=== PATIENT | female | born 1955 | race Caucasian/White ===

== ENCOUNTER 2017-02-04 06:23 | Emergency (ER) | payer MEDICARE, OTHER ==
[~2017-02-04] VITALS: Ht 154.9 cm; Wt 75.0 kg
[~2017-02-04 06:23] MED LIST: CALC600T12 PO; CENTTAB PO; DILA100C PO; DOCU1CAP23 PO; FOSA70TA PO; LEVO75TA3 PO; PHEN-523 PO; VITA100036 PO
[2017-02-04 06:25] VITALS: BP 152/69; PULSE 85; RESP 18; TEMP 97.6; O2SAT 97
[2017-02-04] MEDS ORDERED: CALC600T4 PO (06:33)
[2017-02-04] MEDS ORDERED: PHEN-523 PO (06:33)
[2017-02-04] MEDS ORDERED: MULTTAB67 PO (06:33)
--- NOTE | 2017-02-04 07:11 | PD ---
HPI Chief Complaint: Fall Time Seen by Provider: 06:58 Travel History International Travel<30 days: No Contact w/Intl Traveler<30days: No Traveled to known affect area: No History of Present Illness HPI 61-year-old female complains of low back pain and left buttock pain. Patient fell from standing up to the ground this morning. Patient denies loss of consciousness. Patient denies any headache or neck pain. Patient denies any chest pain or shortness of breath. Patient denies abdominal pain. Patient complains of aching pain to low back area, left buttock area. Patient denies any focal weakness or numbness of extremity. Patient status post back scoliosis surgery in the past. PFSH Past Medical History Cancer: No Cardiovascular Problems: No Diabetes: No Endocrine: Yes Genitourinary: No Hepatitis: No Hiatal Hernia: No Immune Disorder: No Musculoskeletal: No Neurologic: Yes (EPILEPSY) Psychiatric: No Reproductive: No Respiratory: No Migraines: No Seizures: Yes Thyroid Disease: Yes ?: Not Menopausal: Yes Past Surgical History AICD: No Body Medical Devices: JIM RODS IN BACK Endocrine Surgery: No Eye Surgery: Yes (BILATERAL CATARACTS) Joint Replacement: No Pacemaker: No Tympanostomy Tube: Yes Other Surgery: Yes Social History Alcohol Use: No Tobacco Use: No Substance Use: No Allergies-Medications (Allergen,Severity, Reaction): Coded Allergies: Coconut (Verified Allergy, Severe, Anaphylaxis, 02/04/17) Pea (Verified Allergy, Severe, Anaphylaxis, 02/04/17) Achromycin V (Verified Allergy, Unknown, 02/04/17) Reported Meds & Prescriptions Reported Meds & Active Scripts Active Tylenol-Codeine #3 (Acetaminophen-Codeine) 300-30 mg Tab 1 Tab PO Q6HR PRN Reported Phenobarbital 30 Mg Tab 30 Mg PO BID Multiple Vitamin 1 Tab 1 Tab PO DAILY Calcium Carbonate 1,500 Mg Tab 1,500 Mg PO DAILY 1,500 mg calcium carbonate (600 mg elemental calcium) Stool Softener Extra Strength (Docusate Sodium) 250 Mg Cap 250 Mg PO DAILY PRN Vitamin D3 (Cholecalciferol) 1,000 Unit Cap 1,000 Units PO DAILY Fosamax (Alendronate Sodium) 70 Mg Tab 70 Mg PO Q7D Dilantin (Phenytoin Extended) 100 Mg Cap 300 Mg PO DAILY Levothyroxine (Levothyroxine Sodium) 75 Mcg Tab 75 Mcg PO DAILY Review of Systems General / Constitutional: No: Fever Eyes: No: Visual changes HENT: No: Headaches Cardiovascular: No: Chest Pain or Discomfort Respiratory: No: Shortness of Breath Gastrointestinal: No: Abdominal Pain Genitourinary: No: Dysuria Musculoskeletal: No: Pain Skin: No Rash Neurologic: No: Weakness Psychiatric: No: Depression Endocrine: No: Polydipsia Hematologic/Lymphatic: No: Easy Bruising Physical Exam Narrative GENERAL: Well-nourished, well-developed patient. SKIN: Focused skin assessment warm/dry. HEAD: Normocephalic. EYES: No scleral icterus. No injection or drainage. NECK: Supple, trachea midline. No JVD or lymphadenopathy. CARDIOVASCULAR: Regular rate and rhythm without murmurs, gallops, or rubs. RESPIRATORY: Breath sounds equal bilaterally. No accessory muscle use. GASTROINTESTINAL: Abdomen soft, non-tender, nondistended. MUSCULOSKELETAL: No cyanosis, or edema. Mild tenderness on palpation left buttock area. Full range of motion the left hip joint. BACK: Patient has mild tenderness on palpation lower lumbar area, without obvious deformity. No CVA tenderness. Neurologic exam normal. Data Data Last Documented VS Vital Signs Date Time Temp Pulse Resp B/P Pulse Ox O2 Delivery O2 Flow Rate FiO2 02/04/17 06:25 97.6 85 18 152/69 97 Orders Spine, Lumbar - Ltd (Ap & Lat) (02/04/17 07:04) Hip, Uni(Ap&Lat) W Ap Pelvis (02/04/17 07:04) Ketorolac Inj (Toradol Inj) (02/04/17 09:00) MDM Medical Decision Making Medical Screen Exam Complete: Yes Emergency Medical Condition: Yes Differential Diagnosis Differential diagnosis including contusion, fracture, dislocation. Narrative Course 61-year-old female with low back pain and left buttock pain. Status post fall. Diagnosis Primary Impression: Contusion of left hip Qualified Code: S70.02XA - Contusion of left hip, initial encounter Patient Instructions: General Instructions Additional Instructions: Tylenol ibuprofen as needed for pain. Tylenol with codeine as needed for severe pain. Stool softener with codeine. Follow-up with personal physician. Return if worse. Scripts Acetaminophen-Codeine (Tylenol-Codeine #3)300-30 mg Tab1 Tab PO Q6HR PRN ( HEADACHE) #20 TAB Prov:Алексаднр Muro MD 02/04/17 Disposition: 01 DISCHARGE HOME Condition: Stable Александр Muro MD Feb 04, 2017 07:11
--- NOTE | 2017-02-04 08:04 | RADRPT ---
EXAM DATE/TIME: 02/04/2017 07:38 [facility] COMPARISON: No previous studies available for comparison. INDICATIONS : Left hip pain, fall. MEDICAL HISTORY : None. SURGICAL HISTORY : Howard rods in back ENCOUNTER: Initial ACUITY: 1 day PAIN SCORE: 5/10 LOCATION: Left hip FINDINGS: Mild degenerative changes are noted involving the hip joints. There is no acute fracture or dislocat ion of the left hip. Degenerative changes and scoliosis of the visualized portion of the lower lumba r spine are noted. CONCLUSION: 1. No acute fracture or dislocation. 2. Mild degenerative changes involving the hip joints bilaterally. 3. Degenerative changes and scoliosis of the lumbar spine. Jose Singh MD on February 04, 2017 at 7:56 Board Certified Radiologist. This report was verified electronically.
--- NOTE | 2017-02-04 08:06 | RADRPT ---
EXAM DATE/TIME: 02/04/2017 07:42 [facility] COMPARISON: No previous studies available for comparison. INDICATIONS : Lower back pain, fall. MEDICAL HISTORY : None. SURGICAL HISTORY : Howard rods ENCOUNTER: Initial ACUITY: 1 day PAIN SCORE: 10/10 LOCATION: Left lumbar FINDINGS: Degenerative changes and scoliosis of the thoracolumbar spine are noted. Howard rods are noted. There is no acute compression fracture or spondylolisthesis of the lumbar spine. CONCLUSION: 1. Degenerative changes and scoliosis of the thoracolumbar spine. 2. No acute compression fracture or spondylolisthesis. Jose Singh MD on February 04, 2017 at 7:59 Board Certified Radiologist. This report was verified electronically.
[2017-02-04] MEDS ORDERED: TYLETAB34 PO (08:27)
[2017-02-04] MEDS ORDERED: KETOROLAC TROMETHAMINE 30 MG/ML (IVP) VIAL IV PUSH ONE (09:00)
== END 2017-02-04 09:15 | disposition home or self-care (01) ==
LOC: NEPE 06:23
DX: S70.02XA Contusion of left hip, initial encounter (principal); M54.5 Low back pain; E07.9 Disorder of thyroid, unspecified; W18.30XA Fall on same level, unspecified, initial encounter
CPT/HCPCS: 72100; 73502; 96374; 99284; J1885

== ENCOUNTER 2017-02-04 14:18 | Inpatient (IN) | payer MEDICARE, OTHER ==
[~2017-02-04] VITALS: Ht 160 cm; Wt 77.0 kg
[~2017-02-04 14:18] MED LIST changes: +CALC600T4 PO; +MULTTAB67 PO; +TYLETAB34 PO
[2017-02-04 14:24] VITALS: BP 142/60; PULSE 103; RESP 16; TEMP 98.7; O2SAT 94
[2017-02-04] MEDS ORDERED: SODIUM CHLORIDE 0.9% FLUSH 10 ML FLUSH IVF PRN (15:00)
[2017-02-04 15:02] VITALS: O2SAT 96
[2017-02-04 15:05] LABS: AUTOMATED NEUTROPHIL # 9.6 TH/MM3 (1.8-7.7); BASOPHIL % 0.2 % (0.0-2.0); EOSINOPHIL % 0.1 % (0.0-4.0); HEMATOCRIT 36.5 % (35.0-46.0); LYMPH % 5.5 % (9.0-44.0); LYMPHOCYTE # 0.6 TH/MM3 (1.0-4.8); MEAN CELL VOLUME 93.8 FL (80.0-100.0); MEAN CORPUSCULAR HEMOGLOBIN 31.4 PG (27.0-34.0); MEAN CORPUSCULAR HGB CONC 33.5 % (32.0-36.0); MONO % 7.8 % (0.0-8.0); NEUT % 86.4 % (16.0-70.0); PLATELET COUNT 122 TH/MM3 (150-450); RED BLOOD COUNT 3.89 MIL/MM3 (4.00-5.30); WHITE BLOOD COUNT 11.1 TH/MM3 (4.0-11.0)
[2017-02-04 15:07] LABS: HEMO FLAGS DIFF FINAL
[2017-02-04 15:18] LABS: CHLORIDE 101 MEQ/L (98-107); POTASSIUM 4.4 MEQ/L (3.5-5.1); SODIUM (NA) 138 MEQ/L (136-145)
[2017-02-04 15:22] LABS: BLOOD UREA NITROGEN 17 MG/DL (7-18)
[2017-02-04 15:23] LABS: ANION GAP 6 MEQ/L (5-15); APTT (PATIENT) 29.5 SEC (24.3-30.1); BICARBONATE 31.2 MEQ/L (21.0-32.0); INTERNATIONAL NORMALIZED RATIO 1.3 RATIO; PROTHROMBIN TIME - PATIENT 14.3 SEC (9.8-11.6)
--- NOTE | 2017-02-04 15:23 | PD ---
HPI Chief Complaint: General Weakness Time Seen by Provider: 14:35 Travel History International Travel<30 days: No Contact w/Intl Traveler<30days: No Traveled to known affect area: No History of Present Illness HPI Patient is a 61-year-old female who comes in because she is unable to walk. She was seen at the [facility] earlier this morning after she fell and landed on her back. She had an x-ray performed that showed no fracture at that time. She says that when she got home she was unable to get out of the car due to pain. Her friend lifted her to bring her to the house, and then she started to have chest pain. She reports some shortness of breath, but says that this is normal for her secondary to her scoliosis. She denies any new falls. She has taken a pain medicine that was prescribed to her. PFSH Past Medical History Cancer: No Cardiovascular Problems: No Diabetes: No Diminished Hearing: No Endocrine: Yes Genitourinary: No Hepatitis: No Hiatal Hernia: No Immune Disorder: No Musculoskeletal: Yes (SCOLIOSIS) Neurologic: Yes (EPILEPSY) Psychiatric: No Reproductive: No Respiratory: No Migraines: No Seizures: Yes Thyroid Disease: Yes Tetanus Vaccination: > 5 Years ?: Not Menopausal: Yes Past Surgical History AICD: No Body Medical Devices: JIM RODS IN BACK Endocrine Surgery: No Eye Surgery: Yes (BILATERAL CATARACTS) Joint Replacement: No Pacemaker: No Tympanostomy Tube: Yes Other Surgery: Yes Social History Alcohol Use: No Tobacco Use: No Substance Use: No Allergies-Medications (Allergen,Severity, Reaction): Coded Allergies: Coconut (Verified Allergy, Severe, Anaphylaxis, 02/04/17) Pea (Verified Allergy, Severe, Anaphylaxis, 02/04/17) Achromycin V (Verified Allergy, Unknown, 02/04/17) Reported Meds & Prescriptions Reported Meds & Active Scripts Active Tylenol-Codeine #3 (Acetaminophen-Codeine) 300-30 mg Tab 1 Tab PO Q6HR PRN Reported Phenobarbital 30 Mg Tab 30 Mg PO BID Multiple Vitamin 1 Tab 1 Tab PO DAILY Calcium Carbonate 1,500 Mg Tab 1,500 Mg PO DAILY 1,500 mg calcium carbonate (600 mg elemental calcium) Stool Softener Extra Strength (Docusate Sodium) 250 Mg Cap 250 Mg PO DAILY PRN Vitamin D3 (Cholecalciferol) 1,000 Unit Cap 1,000 Units PO DAILY Fosamax (Alendronate Sodium) 70 Mg Tab 70 Mg PO Q7D Dilantin (Phenytoin Extended) 100 Mg Cap 300 Mg PO DAILY Levothyroxine (Levothyroxine Sodium) 75 Mcg Tab 75 Mcg PO DAILY Review of Systems Except as stated in HPI: all other systems reviewed are Neg General / Constitutional: No: Fever, Chills Eyes: No: Blurred Vision HENT: No: Headaches, Lightheadedness Cardiovascular: Positive: Chest Pain or Discomfort Respiratory: No: Shortness of Breath Gastrointestinal: No: Nausea, Vomiting Musculoskeletal: Positive: Pain Skin: No Rash, No Change in Pigmentation Neurologic: No: Weakness, Dizziness Physical Exam Narrative GENERAL: Awake and alert, in no acute distress. SKIN: Focused skin assessment warm/dry. HEAD: Atraumatic. Normocephalic. EYES: Pupils equal and round. No scleral icterus. Extraocular movements intact. ENT: Mucous membranes pink and moist. NECK: Trachea midline. No JVD. CARDIOVASCULAR: Regular rate and rhythm. No murmur appreciated. RESPIRATORY: No accessory muscle use. Clear to auscultation. Breath sounds equal bilaterally. MUSCULOSKELETAL: No obvious deformities. No clubbing. No cyanosis. No edema. No tenderness to palpation of the lumbar spine. No tenderness to palpation of the pelvis. No pain with movement of either leg. NEUROLOGICAL: Awake and alert. No obvious cranial nerve deficits. Motor grossly within normal limits. Normal speech. PSYCHIATRIC: Appropriate mood and affect; insight and judgment normal. Data Data Last Documented VS Vital Signs Date Time Temp Pulse Resp B/P Pulse Ox O2 Delivery O2 Flow Rate FiO2 02/04/17 15:02 96 Room Air 02/04/17 14:24 98.7 103 16 142/60 Orders Electrocardiogram (02/04/17 14:52) Complete Blood Count With Diff (02/04/17 14:52) Comprehensive Metabolic Panel (02/04/17 14:52) Prothrombin Time / Inr (Pt) (02/04/17 14:52) Act Partial Throm Time (Ptt) (02/04/17 14:52) Troponin I (02/04/17 14:52) Chest, Single Ap (02/04/17 14:52) Ecg Monitoring (02/04/17 14:52) Iv Access Insert/Monitor (02/04/17 14:52) Oximetry (02/04/17 14:52) Sodium Chloride 0.9% Flush (Ns Flush) (02/04/17 15:00) Ct Lumb Spine W/O Contrast (02/04/17 ) Ct Pelvis W/O Iv Contrast (02/04/17 ) Urinalysis - C+S If Indicated (02/04/17 15:23) Labs Laboratory Tests Test 02/04/17 15:00 White Blood Count 11.1 TH/MM3 Red Blood Count 3.89 MIL/MM3 Hemoglobin 12.2 GM/DL Hematocrit 36.5 % Mean Corpuscular Volume 93.8 FL Mean Corpuscular Hemoglobin 31.4 PG Mean Corpuscular Hemoglobin 33.5 % Concent Red Cell Distribution Width 14.0 % Platelet Count 122 TH/MM3 Mean Platelet Volume 7.4 FL Neutrophils (%) (Auto) 86.4 % Lymphocytes (%) (Auto) 5.5 % Monocytes (%) (Auto) 7.8 % Eosinophils (%) (Auto) 0.1 % Basophils (%) (Auto) 0.2 % Neutrophils # (Auto) 9.6 TH/MM3 Lymphocytes # (Auto) 0.6 TH/MM3 Monocytes # (Auto) 0.9 TH/MM3 Eosinophils # (Auto) 0.0 TH/MM3 Basophils # (Auto) 0.0 TH/MM3 CBC Comment DIFF FINAL Differential Comment Prothrombin Time 14.3 SEC Prothromb Time International 1.3 RATIO Ratio Activated Partial 29.5 SEC Thromboplast Time Sodium Level 138 MEQ/L Potassium Level 4.4 MEQ/L Chloride Level 101 MEQ/L Carbon Dioxide Level 31.2 MEQ/L Anion Gap 6 MEQ/L Blood Urea Nitrogen 17 MG/DL Creatinine 0.82 MG/DL Estimat Glomerular Filtration 71 ML/MIN Rate Random Glucose 119 MG/DL Calcium Level 8.4 MG/DL Total Bilirubin 0.6 MG/DL Aspartate Amino Transf 27 U/L (AST/SGOT) Alanine Aminotransferase 25 U/L (ALT/SGPT) Alkaline Phosphatase 130 U/L Troponin I LESS THAN 0.02 NG/ML Total Protein 7.4 GM/DL Albumin 3.4 GM/DL [facility] Medical Decision Making Medical Screen Exam Complete: Yes Emergency Medical Condition: Yes Medical Record Reviewed: Yes Interpretation(s) ECG shows normal sinus rhythm at 93, no ST elevation or depression. Differential Diagnosis Hip fracture versus spinal fracture versus electrolyte abnormality versus ACS Narrative Course Patient is a 61-year-old female comes in complaining of pain and being unable to walk. She also has developed chest pain. Exam shows no acute abnormalities. IV established, labs sent. Patient signed out to Dr. Weston to follow up testing and disposition the patient. Willow Varma MD Feb 04, 2017 15:22
[2017-02-04 15:25] LABS: ALT (GPT) 25 U/L (10-53); AST (GOT) 27 U/L (15-37); GLOMERULAR FILTRATION RATE 71 ML/MIN (>89)
[2017-02-04 15:27] LABS: TOTAL BILIRUBIN ADULT 0.6 MG/DL (0.2-1.0)
[2017-02-04 15:28] LABS: ALKALINE PHOSPHATASE 130 U/L (45-117)
--- NOTE | 2017-02-04 15:42 | RADRPT ---
EXAM DATE/TIME: 02/04/2017 15:29 [facility] COMPARISON: CHEST SINGLE AP, February 18, 2013, 21:28. INDICATIONS : Chest pain. MEDICAL HISTORY : None. SURGICAL HISTORY : Howard rods. ENCOUNTER: Initial ACUITY: 1 day PAIN SCORE: 10 LOCATION: Bilateral chest FINDINGS: Spinal fixation Howard rods are present. There is mild elevation of the left diaphragm which is u nchanged. Slight scarring in the lung bases. Cardiac contours are grossly satisfactory counting for p rojection. CONCLUSION: Stable chest appearance. No acute disease. Peter Wright MD on February 04, 2017 at 15:39 Board Certified Radiologist. This report was verified electronically.
[2017-02-04 15:48] LABS: BLOOD, URINE SMALL (NEG); GLUCOSE,URINE NEG (NEG); KETONE, URINE NEG (NEG); NITRITE,URINE NEG (NEG)
[2017-02-04 16:01] LABS: URINE COLOR YELLOW (YELLW/STRAW)
[2017-02-04 16:02] LABS: GRANULAR CAST, URINE 0-2 /lpf; MUCUS URINE FEW /lpf (OCC); RBC, URINE 0-3 /hpf (0-3)
[2017-02-04 16:03] LABS: COMMENT (UR) CULTURE INDICATED; CULTURE IF INDICATED CULTURE INDICATED
[2017-02-04 16:05] VITALS: BP 142/61; PULSE 88; RESP 16; O2SAT 99
--- NOTE | 2017-02-04 16:08 | RADRPT ---
EXAM DATE/TIME: 02/04/2017 15:04 [facility] COMPARISON: CT ABDOMEN & PELVIS W CONTRAST, February 18, 2013, 18:36. INDICATIONS : Back and pelvic pain status post fall ORAL CONTRAST: No oral contrast ingested. RADIATION DOSE: 20.71 CTDIvol (mGy) MEDICAL HISTORY : Seizures. scoliosis, epilepsy SURGICAL HISTORY : Howard rods, right leg reconstruction ENCOUNTER: Initial ACUITY: 1 day PAIN SCALE: 10/10 LOCATION: Bilateral hip pain TECHNIQUE: Volumetric scanning of the pelvis was performed. Using automated exposure control and adjustment of the mA and/or kV according to patient size, radiation dose was kept as low as reasonably achievable t o obtain optimal diagnostic quality images. DICOM format image data is available electronically for review and comparison. FINDINGS: There are several varicosities and mild subcutaneous edema along the right leg. A moderate amount of stool in the distal colon is appreciated. There is mild distention of the urinary bladder. Numerous c alcified phleboliths are noted in the region of the gonadal veins. There are remote deformities of th e lower lumbar spine and left iliac bone. No acute fractures are identified. CONCLUSION: No acute disease. Chao Jackson MD on February 04, 2017 at 16:04 Board Certified Radiologist. This report was verified electronically.
[2017-02-04] MEDS ORDERED: MORPHINE SULFATE 4 MG/ML INJ IV PUSH ONE (16:30)
[2017-02-04] MEDS ORDERED: MORPHINE SULFATE 8 MG/ML INJ IV PUSH ONE (16:30)
[2017-02-04] MEDS ORDERED: cefTRIAXone INJ 1,000 MG in SODIUM CHLORIDE 0.9% INJ 100 ML IV ONE (16:30)
--- NOTE | 2017-02-04 16:42 | RADRPT ---
EXAM DATE/TIME: 02/04/2017 15:04 [facility] COMPARISON: SPINE LUMBAR LTD (AP & LAT), February 04, 2017, 7:42. CT ABDOMEN & PELVIS W CONTRAST, February 18, 2013, 18: 36. INDICATIONS : Back pain status post fall RADIATION DOSE: 38.93 CTDIvol (mGy) MEDICAL HISTORY : Seizures. scoliosis, epilepsy SURGICAL HISTORY : Howard rods, right leg reconstruction ENCOUNTER: Initial ACUITY: 1 day PAIN SCALE: 10/10 LOCATION: lumbar and pelvic region TECHNIQUE: Volumetric scanning of the lumbar spine was performed. Multiplanar reconstructions in the sagittal, coronal and oblique axial planes were performed. Using automated exposure control and adjustment of the mA and/or kV according to patient size, radiation dose was kept as low as reasonably achievable t o obtain optimal diagnostic quality images. DICOM format image data is available electronically for review and comparison. FINDINGS: There is S-shaped thoracolumbar scoliosis with Howard rods in place which terminate at L2 and L4. Hardware appears intact. There is a fracture of the L4 superior endplates with eccentric disruption on the left with apparent involvement of the anterior vertebral body cortex. The fracture does not ap pear to extend to the pedicles and there are no retropulsed fragments. There is a peripherally calcif ied low density anterior vertebral collection which extends from the superior endplate of L4 to the m id L5 vertebral body level. This appears stable from prior abdominal CT exam. This may be peripherall y calcified old prevertebral hematoma. Remaining osseous structures appear intact. Sagittal alignment is maintained. The bony central canal is maintained. Visualized paraspinal soft tissues are grossly unremarkable. No significant soft tissue abnormality. [id number] right neural foraminal narrowi ng at L5-S1 secondary to osteophyte complex. Otherwise, bony neural foraminal are grossly maintained. CONCLUSION: 1. S- shaped thoracolumbar scoliosis with Howard rods in place. Hardware appears intact. 2. Eccentric fracture of the L4 superior endplate without retropulsed fragments. 3. Stable peripherally calcified prevertebral collection spanning L4 and L5 may reflect an old prever tebral hematoma. Daniel Desir MD on February 04, 2017 at 16:01 Board Certified Radiologist. This report was verified electronically.
--- NOTE | 2017-02-04 17:16 | PD ---
Data Data Last Documented VS Vital Signs Date Time Temp Pulse Resp B/P Pulse Ox O2 Delivery O2 Flow Rate FiO2 02/04/17 16:05 88 16 142/61 99 Room Air 02/04/17 14:24 98.7 Orders Electrocardiogram (02/04/17 14:52) Complete Blood Count With Diff (02/04/17 14:52) Comprehensive Metabolic Panel (02/04/17 14:52) Prothrombin Time / Inr (Pt) (02/04/17 14:52) Act Partial Throm Time (Ptt) (02/04/17 14:52) Troponin I (02/04/17 14:52) Chest, Single Ap (02/04/17 14:52) Ecg Monitoring (02/04/17 14:52) Iv Access Insert/Monitor (02/04/17 14:52) Oximetry (02/04/17 14:52) Sodium Chloride 0.9% Flush (Ns Flush) (02/04/17 15:00) Ct Lumb Spine W/O Contrast (02/04/17 ) Ct Pelvis W/O Iv Contrast (02/04/17 ) Urinalysis - C+S If Indicated (02/04/17 15:23) Urine Culture (02/04/17 15:40) Ceftriaxone Inj (Rocephin Inj) (02/04/17 16:30) Morphine Inj (Morphine Inj) (02/04/17 16:30) Morphine Inj (Morphine Inj) (02/04/17 16:30) TLSO (02/04/17 ) Labs Laboratory Tests Test 02/04/17 02/04/17 15:00 15:40 White Blood Count 11.1 TH/MM3 Red Blood Count 3.89 MIL/MM3 Hemoglobin 12.2 GM/DL Hematocrit 36.5 % Mean Corpuscular Volume 93.8 FL Mean Corpuscular Hemoglobin 31.4 PG Mean Corpuscular Hemoglobin 33.5 % Concent Red Cell Distribution Width 14.0 % Platelet Count 122 TH/MM3 Mean Platelet Volume 7.4 FL Neutrophils (%) (Auto) 86.4 % Lymphocytes (%) (Auto) 5.5 % Monocytes (%) (Auto) 7.8 % Eosinophils (%) (Auto) 0.1 % Basophils (%) (Auto) 0.2 % Neutrophils # (Auto) 9.6 TH/MM3 Lymphocytes # (Auto) 0.6 TH/MM3 Monocytes # (Auto) 0.9 TH/MM3 Eosinophils # (Auto) 0.0 TH/MM3 Basophils # (Auto) 0.0 TH/MM3 CBC Comment DIFF FINAL Differential Comment Prothrombin Time 14.3 SEC Prothromb Time International 1.3 RATIO Ratio Activated Partial 29.5 SEC Thromboplast Time Sodium Level 138 MEQ/L Potassium Level 4.4 MEQ/L Chloride Level 101 MEQ/L Carbon Dioxide Level 31.2 MEQ/L Anion Gap 6 MEQ/L Blood Urea Nitrogen 17 MG/DL Creatinine 0.82 MG/DL Estimat Glomerular Filtration 71 ML/MIN Rate Random Glucose 119 MG/DL Calcium Level 8.4 MG/DL Total Bilirubin 0.6 MG/DL Aspartate Amino Transf 27 U/L (AST/SGOT) Alanine Aminotransferase 25 U/L (ALT/SGPT) Alkaline Phosphatase 130 U/L Troponin I LESS THAN 0.02 NG/ML Total Protein 7.4 GM/DL Albumin 3.4 GM/DL Urine Color YELLOW Urine Turbidity CLEAR Urine pH 6.0 Urine Specific [place] 1.015 Urine Protein NEG mg/dL Urine Glucose (UA) NEG mg/dL Urine Ketones NEG mg/dL Urine Occult Blood SMALL Urine Nitrite NEG Urine Bilirubin NEG Urine Leukocyte Esterase TRACE Urine RBC 0-3 /hpf Urine WBC 25-49 /hpf Urine WBC Clumps FEW Urine Squamous Epithelial 6-8 /hpf Cells Urine Bacteria /hpf Urine Hyaline Casts 3-5 /lpf Urine Granular Casts 0-2 /lpf Urine Mucus FEW /lpf Microscopic Urinalysis Comment CULTURE INDICATED MDM Medical Record Reviewed: Yes Supervised Visit with BRAN: No Narrative Course CBC & BMP Diagram 02/04/17 15:00 LFTs normal Tn < 0.02 EKG: sinus, rate 93, normal axis/intervals Last 24 hours Impressions Chest X-Ray 02/04/17 1452 Signed Impressions: Service Date/Time: Saturday, February 04, 2017 15:29 - CONCLUSION: Stable chest appearance. No acute disease. Peter Wright MD Pelvis CT 02/04/17 0000 Signed Impressions: Service Date/Time: Saturday, February 04, 2017 15:04 - CONCLUSION: No acute disease. Chao Jackson MD Lumbar Spine CT 02/04/17 0000 Signed Impressions: Service Date/Time: Stella, February 04, 2017 15:04 - CONCLUSION: 1. S- shaped thoracolumbar scoliosis with Howard rods in place. Hardware appears intact. 2. Eccentric fracture of the L4 superior endplate without retropulsed fragments. 3. Stable peripherally calcified prevertebral collection spanning L4 and L5 may reflect an old prevertebral hematoma. Daniel Desir MD TLSO appliance ordered. d/w Dr Rachel, who advises TLSO, pain control and outpatient follow up. Case d/w Dr Santiago. Rocephin ordered for UTI. Diagnosis Primary Impression: Fall Qualified Code: W19.XXXD - Fall, subsequent encounter Additional Impressions: Fracture of lumbar spine Qualified Code: S32.049A - Closed fracture of fourth lumbar vertebra, unspecified fracture morphology, initial encounter Cystitis Admitting Information Admitting Physician Requests: Marcellus Peña MD Feb 04, 2017 17:16
[2017-02-04] MEDS ORDERED: DICYCLOMINE HCL 10 MG CAP PO ONE (17:45)
--- NOTE | 2017-02-04 18:35 | PD.PN.STU ---
Subjective Remarks History and physical. Written by Cheyenne Parra MS4 acting as scribe for Dr. Santiago 02/04 6:30pm 61 year old female presenting with back pain and weakness after a fall earlier today. Patient states she was walking to her car this morning to see her doctor and her right knee gave out and she fell. She was unable to get up by herself. Her friend helped her up. They called 911 and she was brought to [facility] today. In the ER there she was sent home and told it was just bruising. She did not want to go home because she could not walk and knew she could not take care of herself. When they left the ER and went home, she could not get out of the car. Her friend lifted her up and brought her to her door. She could not move so she called her doctors and they told her to go back to the ER. In the [facility] and CT lumbar spine showed S- shaped thoracolumbar scoliosis with Howard rods in place. Hardware appears intact. Eccentric fracture of the L4 superior endplate without retropulsed fragments. Stable peripherally calcified prevertebral collection spanning L4 and L5 may reflect an old prevertebral hematoma. Currently she is having lower back pain that does not radiate. No numbness or tingling down her legs. She has left lower leg swelling that has been present since she sprained her ankle a few weeks ago. She has a history of scoliosis. She admits to some chest pain that is worse with movement and she believes it is due to the way her friend was carrying her. PMH: Epilepsy Hemangiomas Scoliosis Surgical hx: Right leg skin graft after tumor excision Back surgery for scoliosis FH: Reviewed with patient and noncontributory to the current presentation Social: denies tobacco, alcohol or illicit drug use. Allergies: coconut, peanuts, peas, Achromycin Objective Vitals Vital Signs Date Time Temp Pulse Resp B/P Pulse Ox O2 Delivery O2 Flow Rate FiO2 02/04/17 16:05 88 16 142/61 99 Room Air 02/04/17 15:02 96 Room Air 02/04/17 14:24 98.7 103 16 142/60 94 Room Air Result Diagram: 02/04/17 1500 02/04/17 1500 Imaging Vital Signs, 24 Hour Date Time Temp Pulse Resp B/P Pulse Ox O2 Delivery O2 Flow Rate FiO2 02/04/17 16:05 88 16 142/61 99 Room Air 02/04/17 15:02 96 Room Air 02/04/17 14:24 98.7 103 16 142/60 94 Room Air Allergies Coded Allergies Coconut (Verified Allergy, Severe, Anaphylaxis, 02/04/17) Pea (Verified Allergy, Severe, Anaphylaxis, 02/04/17) Achromycin V (Verified Allergy, Unknown, 02/04/17) Laboratory Tests per [facility] Test 02/04/17 15:00 White Blood Count 11.1 TH/MM3 Red Blood Count 3.89 MIL/MM3 Sodium Level 138 MEQ/L Potassium Level 4.4 MEQ/L Blood Urea Nitrogen 17 MG/DL Recent Impressions Chest X-Ray 02/04/17 1452 Signed Impressions: Service Date/Time: Saturday, February 04, 2017 15:29 - CONCLUSION: Stable chest appearance. No acute disease. Peter Wright MD Pelvis CT 02/04/17 0000 Signed Impressions: Service Date/Time: Saturday, February 04, 2017 15:04 - CONCLUSION: No acute disease. Chao Jackson MD Lumbar Spine CT 02/04/17 0000 Signed Impressions: Service Date/Time: Saturday, February 04, 2017 15:04 - CONCLUSION: 1. S- shaped thoracolumbar scoliosis with Howard rods in place. Hardware appears intact. 2. Eccentric fracture of the L4 superior endplate without retropulsed fragments. 3. Stable peripherally calcified prevertebral collection spanning L4 and L5 may reflect an old prevertebral hematoma. Daniel Desir MD Active Scripts Active Tylenol-Codeine #3 (Acetaminophen-Codeine) 300-30 mg Tab 1 Tab PO Q6HR PRN Reported Phenobarbital 30 Mg Tab 30 Mg PO BID Multiple Vitamin 1 Tab 1 Tab PO DAILY Calcium Carbonate 1,500 Mg Tab 1,500 Mg PO DAILY 1,500 mg calcium carbonate (600 mg elemental calcium) Stool Softener Extra Strength (Docusate Sodium) 250 Mg Cap 250 Mg PO DAILY PRN Vitamin D3 (Cholecalciferol) 1,000 Unit Cap 1,000 Units PO DAILY Fosamax (Alendronate Sodium) 70 Mg Tab 70 Mg PO Q7D Dilantin (Phenytoin Extended) 100 Mg Cap 300 Mg PO DAILY Levothyroxine (Levothyroxine Sodium) 75 Mcg Tab 75 Mcg PO DAILY Microbiology 02/04/17 Urine Culture, Received Pending Objective Remarks GENERAL: well appearing female in no acute distress SKIN: Warm and dry. HEAD: Normocephalic. EYES: No scleral icterus. No injection or drainage. NECK: Supple, trachea midline. No JVD or lymphadenopathy. CARDIOVASCULAR: Regular rate and rhythm without murmurs, gallops, or rubs. RESPIRATORY: Breath sounds equal bilaterally. No accessory muscle use. GASTROINTESTINAL: Abdomen soft, non-tender, nondistended. MUSCULOSKELETAL: No cyanosis. Peripheral edema of left leg and right foot. Surgical scars appreciated of right lower leg. Hemangioma present on right back and upper leg. m strength 4/5 BL, positive patella reflex BL. BACK: Tenderness elicited with palpation of lower back. Surgical scars of back surgery appreciated. No CVA tenderness. Medications and IVs Current Medications Medications (Trade) Dose Ordered Sig/Ivette Route Start Time Stop Time Status Last Admin (NS Flush) 2 ml UNSCH PRN IVF 02/04/17 15:00 (NS Flush) 2 ml UNSCH PRN IV FLUSH 02/04/17 19:15 UNV (NS Flush) 2 ml BID IV FLUSH 02/04/17 21:00 UNV (Tylenol) 650 mg Q4H PRN PO 02/04/17 19:15 UNV (Zofran Inj) 4 mg Q6H PRN IVP 02/04/17 19:15 UNV (Lovenox Inj) 40 mg Q24H SQ 02/04/17 19:15 UNV (Tylenol) 650 mg Q6H PRN PO 02/04/17 19:15 UNV ([place] 5-325 Mg) 1 tab Q4H PRN PO 02/04/17 19:15 UNV ([place] 10-325 Mg) 1 tab Q4H PRN PO 02/04/17 19:15 UNV (Morphine Inj) 4 mg Q3H PRN IV 02/04/17 19:15 UNV (Narcan Inj) 0.4 mg UNSCH PRN IV 02/04/17 19:15 UNV (Edda-Colace) 1 tab BID PO 02/04/17 21:00 UNV (Milk Of Magnesia Liq) 30 ml Q12H PRN PO 02/04/17 19:15 UNV (Senokot) 17.2 mg Q12H PRN PO 02/04/17 19:15 UNV (Dulcolax Supp) 10 mg DAILY PRN RECTAL 02/04/17 19:15 UNV (Lactulose Liq) 30 ml DAILY PRN PO 02/04/17 19:15 UNV A/P Assessment and Plan 1. Lumbar fracture - CT scan shows eccentric fracture of the L4 superior endplate without retropulsed fragments - Pain control with oral [place] and IV Morphine - consult neurosurgery - consult PT 2. UTI - Urinalysis positive for WBC, WBC clumps and epithelial cells. - culture pending -Continue IV Rocephin 3. Epilepsy - Continue home anticonvulsant therapy. Stable. This note was transcribed by vasu Parra. I, Dr. Walter Nichols personally performed the history, physical exam, and medical decision making; and confirmed the accuracy of the information in the transcribed note. Authenticated by Dr. Walter Nichols on 02/04/17 at 19:52. Cheyenne Parra Feb 04, 2017 18:35 Walter Lopez MD Feb 04, 2017 19:52
[2017-02-04 19:00] VITALS: PULSE 98; RESP 18; O2SAT 97
[2017-02-04] MEDS ORDERED: SENNOSIDES 8.6 MG TAB PO PRN (19:15)
[2017-02-04] MEDS ORDERED: LACTULOSE SYRUP 20 GM/30 ML CUP PO PRN (19:15)
[2017-02-04] MEDS ORDERED: BISACODYL 10 MG SUPP RECTAL PRN (19:15)
[2017-02-04] MEDS ORDERED: SODIUM CHLORIDE 0.9% FLUSH 10 ML FLUSH IV FLUSH PRN (19:15)
[2017-02-04] MEDS ORDERED: ONDANSETRON HCL 4 MG/2 ML VIAL IVP PRN (19:15)
[2017-02-04] MEDS ORDERED: ACETAMINOPHEN 325 MG TAB PO PRN (19:15)
[2017-02-04] MEDS ORDERED: MAGNESIUM HYDROXIDE SUSP 30 ML CUP PO PRN (19:15)
[2017-02-04] MEDS ORDERED: NALOXONE HCL 0.4 MG/ML AMP IV PRN (19:15)
[2017-02-04] MEDS ORDERED: ACETAMINOPHEN/HYDROcodone 325 MG/5 MG TAB PO PRN (19:15)
--- NOTE | 2017-02-04 19:46 | HHI.HP ---
[facility] Ketan David, Admission Diagnosis L4 Fx, Fall, Cystitis, CP Diagnoses: Travel History International Travel<30 Days: No Contact w/Intl Traveler <30 Da: No Traveled to Known Affected Are: No Past Family Social History Allergies: Coded Allergies: Coconut (Verified Allergy, Severe, Anaphylaxis, 02/04/17) Pea (Verified Allergy, Severe, Anaphylaxis, 02/04/17) Achromycin V (Verified Allergy, Unknown, 02/04/17) Physical Exam Vital Signs Vital Signs Date Time Temp Pulse Resp B/P Pulse Ox O2 Delivery O2 Flow Rate FiO2 02/04/17 19:00 98 18 97 Room Air 02/04/17 16:05 88 16 142/61 99 Room Air 02/04/17 15:02 96 Room Air 02/04/17 14:24 98.7 103 16 142/60 94 Room Air Physical Exam GENERAL: This is a well-nourished, well-developed patient, in no apparent distress. SKIN: No rashes, ecchymoses or lesions. Cool and dry. HEAD: Atraumatic. Normocephalic. No temporal or scalp tenderness. EYES: Pupils equal round and reactive. Extraocular motions intact. No scleral icterus. No injection or drainage. ENT: Nose without bleeding, purulent drainage or septal hematoma. Throat without erythema, tonsillar hypertrophy or exudate. Uvula midline. Airway patent. NECK: Trachea midline. No JVD or lymphadenopathy. Supple, nontender, no meningeal signs. CARDIOVASCULAR: Regular rate and rhythm without murmurs, gallops, or rubs. RESPIRATORY: Clear to auscultation. Breath sounds equal bilaterally. No wheezes , rales, or rhonchi. GASTROINTESTINAL: Abdomen soft, non-tender, nondistended. No hepato-splenomegaly , or palpable masses. No guarding. MUSCULOSKELETAL: Extremities without clubbing, cyanosis, or edema. No joint tenderness, effusion, or edema noted. No calf tenderness. Negative Homans sign bilaterally. NEUROLOGICAL: Awake and alert. Cranial nerves II through XII intact. Motor and sensory grossly within normal limits. Five out of 5 muscle strength in all muscle groups. Normal speech. Laboratory Laboratory Tests Test 02/04/17 02/04/17 15:00 15:40 White Blood Count 11.1 Red Blood Count 3.89 Hemoglobin 12.2 Hematocrit 36.5 Mean Corpuscular Volume 93.8 Mean Corpuscular Hemoglobin 31.4 Mean Corpuscular Hemoglobin 33.5 Concent Red Cell Distribution Width 14.0 Platelet Count 122 Mean Platelet Volume 7.4 Neutrophils (%) (Auto) 86.4 Lymphocytes (%) (Auto) 5.5 Monocytes (%) (Auto) 7.8 Eosinophils (%) (Auto) 0.1 Basophils (%) (Auto) 0.2 Neutrophils # (Auto) 9.6 Lymphocytes # (Auto) 0.6 Monocytes # (Auto) 0.9 Eosinophils # (Auto) 0.0 Basophils # (Auto) 0.0 CBC Comment DIFF FINAL Differential Comment Prothrombin Time 14.3 Prothromb Time International 1.3 Ratio Activated Partial 29.5 Thromboplast Time Sodium Level 138 Potassium Level 4.4 Chloride Level 101 Carbon Dioxide Level 31.2 Anion Gap 6 Blood Urea Nitrogen 17 Creatinine 0.82 Estimat Glomerular Filtration 71 Rate Random Glucose 119 Calcium Level 8.4 Total Bilirubin 0.6 Aspartate Amino Transf 27 (AST/SGOT) Alanine Aminotransferase 25 (ALT/SGPT) Alkaline Phosphatase 130 Troponin I LESS THAN 0.02 Total Protein 7.4 Albumin 3.4 Urine Color YELLOW Urine Turbidity CLEAR Urine pH 6.0 Urine Specific [place] 1.015 Urine Protein NEG Urine Glucose (UA) NEG Urine Ketones NEG Urine Occult Blood SMALL Urine Nitrite NEG Urine Bilirubin NEG Urine Leukocyte Esterase TRACE Urine RBC 0-3 Urine WBC 25-49 Urine WBC Clumps FEW Urine Squamous Epithelial 6-8 Cells Urine Bacteria Urine Hyaline Casts 3-5 Urine Granular Casts 0-2 Urine Mucus FEW Microscopic Urinalysis Comment CULTURE INDICATED Date/Time Procedure Status Source Growth 02/04/17 15:40 Urine Culture Received Urine Clean Catch Pending Result Diagram: 02/04/17 1500 02/04/17 1500 Physician Certification Order for Inpatient Services The services are ordered in accordance with Medicare regulations or non- Medicare payer requirements, as applicable. In the case of services not specified as inpatient-only, they are appropriately provided as inpatient services in accordance with the 2-midnight benchmark. days is the estimated time the patient will need to remain in the hospital, assuming treatment plan goals are met and no additional complications. Walter Lopez MD Feb 04, 2017 19:46
[2017-02-04 20:00] VITALS: BP 155/81; PULSE 99; RESP 20; TEMP 97.6; O2SAT 96
[2017-02-04] MEDS ORDERED: ALENDRONATE SODIUM 70 MG TAB PO SCH (20:45)
[2017-02-04] MEDS: SODIUM CHLORIDE 0.9% FLUSH 10 ML FLUSH IV FLUSH SCH (21:00)
[2017-02-04] MEDS: PHENobarbital 32.4 MG TAB PO SCH (21:00)
[2017-02-04] MEDS: DOCUSATE SODIUM 50 MG/SENNA 8.6 MG TAB PO SCH (21:28)
[2017-02-04] MEDS: ENOXAPARIN SODIUM 40 MG/0.4 ML SYRINGE SQ SCH (21:28)
[2017-02-04] MEDS: MORPHINE SULFATE 8 MG/ML INJ IV PUSH PRN (21:29)
[2017-02-05] VITALS: BP 159/82; PULSE 96; RESP 20; TEMP 97.8; O2SAT 95
[2017-02-05] MEDS: ACETAMINOPHEN/HYDROcodone 325 MG/10 MG TAB PO PRN ×4 (00:21→20:20)
[2017-02-05] MEDS: cefTRIAXone INJ 2,000 MG in SODIUM CHLORIDE 0.9% INJ 100 ML IV SCH (05:13)
[2017-02-05] MEDS: LEVOTHYROXINE SODIUM 75 MCG TAB PO SCH (05:14)
[2017-02-05 06:47] LABS: AUTOMATED NEUTROPHIL # 5.3 TH/MM3 (1.8-7.7); BASOPHIL % 0.4 % (0.0-2.0); EOSINOPHIL # 0.1 TH/MM3 (0-0.4); HEMATOCRIT 33.3 % (35.0-46.0); HEMO FLAGS DIFF FINAL; LYMPH % 11.6 % (9.0-44.0); LYMPHOCYTE # 0.8 TH/MM3 (1.0-4.8); MEAN CELL VOLUME 92.6 FL (80.0-100.0); MEAN CORPUSCULAR HEMOGLOBIN 30.6 PG (27.0-34.0); MEAN CORPUSCULAR HGB CONC 33.1 % (32.0-36.0); MONO % 10.8 % (0.0-8.0); NEUT % 76.2 % (16.0-70.0); PLATELET COUNT 105 TH/MM3 (150-450); RED BLOOD COUNT 3.59 MIL/MM3 (4.00-5.30); RED CELL DISTRIBUTION WIDTH 13.5 % (11.6-17.2)
[2017-02-05 06:54] LABS: CHLORIDE 102 MEQ/L (98-107); POTASSIUM 4.2 MEQ/L (3.5-5.1); SODIUM (NA) 140 MEQ/L (136-145)
[2017-02-05 06:57] LABS: ANION GAP 7 MEQ/L (5-15); BICARBONATE 31.3 MEQ/L (21.0-32.0); BLOOD UREA NITROGEN 13 MG/DL (7-18)
[2017-02-05 07:00] LABS: ALT (GPT) 20 U/L (10-53); AST (GOT) 24 U/L (15-37)
[2017-02-05 07:01] LABS: GLOMERULAR FILTRATION RATE 104 ML/MIN (>89)
[2017-02-05 07:02] LABS: TOTAL BILIRUBIN ADULT 0.6 MG/DL (0.2-1.0)
[2017-02-05 07:03] LABS: ALKALINE PHOSPHATASE 109 U/L (45-117)
[2017-02-05] MEDS: PHENYTOIN SODIUM 100 MG CAP PO SCH (09:25)
[2017-02-05] MEDS: DOCUSATE SODIUM 50 MG/SENNA 8.6 MG TAB PO SCH ×2 (09:25→20:16)
[2017-02-05] MEDS: SODIUM CHLORIDE 0.9% FLUSH 10 ML FLUSH IV FLUSH SCH ×2 (09:25→20:15)
[2017-02-05] MEDS: PHENobarbital 32.4 MG TAB PO SCH ×2 (09:25→20:16)
[2017-02-05] MEDS ORDERED: cloNIDine HCL 0.1 MG TAB PO PRN (11:00)
[2017-02-05 12:00] VITALS: BP 132/75; PULSE 72; RESP 18; TEMP 98; O2SAT 98
--- NOTE | 2017-02-05 12:44 | HHI.PR ---
Subjective Remarks c/o back pain which is controlled vomited after breakfast no seizures reported bp elevated last night Objective Vitals Vital Signs Date Time Temp Pulse Resp B/P Pulse Ox O2 Delivery O2 Flow Rate FiO2 02/05/17 00:00 97.8 96 20 159/82 95 02/04/17 20:00 97.6 99 20 155/81 96 02/04/17 19:00 98 18 97 Room Air 02/04/17 16:05 88 16 142/61 99 Room Air 02/04/17 15:02 96 Room Air 02/04/17 14:24 98.7 103 16 142/60 94 Room Air I/O 02/04/17 02/04/17 02/04/17 02/05/17 02/05/17 02/05/17 07:00 15:00 23:00 07:00 15:00 23:00 Intake Total 24 ml 50 ml Balance 24 ml 50 ml Intake Oral 24 ml IV Total 0 ml 50 ml # Voids 1 # Bowel Movements 0 Result Diagram: 02/05/17 0610 02/05/17 0610 Imaging Last Impressions Chest X-Ray 02/04/17 1452 Signed Impressions: Service Date/Time: Saturday, February 04, 2017 15:29 - CONCLUSION: Stable chest appearance. No acute disease. Peter Wright MD Pelvis CT 02/04/17 0000 Signed Impressions: Service Date/Time: Saturday, February 04, 2017 15:04 - CONCLUSION: No acute disease. Chao Jackson MD Lumbar Spine CT 02/04/17 0000 Signed Impressions: Service Date/Time: Saturday, February 04, 2017 15:04 - CONCLUSION: 1. S- shaped thoracolumbar scoliosis with Howard rods in place. Hardware appears intact. 2. Eccentric fracture of the L4 superior endplate without retropulsed fragments. 3. Stable peripherally calcified prevertebral collection spanning L4 and L5 may reflect an old prevertebral hematoma. Daniel Desir MD Objective Remarks GENERAL: well appearing female in no acute distress SKIN: Warm and dry. HEAD: Normocephalic. EYES: No scleral icterus. No injection or drainage. NECK: Supple, trachea midline. No JVD or lymphadenopathy. CARDIOVASCULAR: Regular rate and rhythm without murmurs, gallops, or rubs. RESPIRATORY: Breath sounds equal bilaterally. No accessory muscle use. GASTROINTESTINAL: Abdomen soft, non-tender, nondistended. MUSCULOSKELETAL: No cyanosis. Peripheral edema of left leg and right foot. Surgical scars appreciated of right lower leg. Hemangioma present on right back and upper leg. m strength 4/5 BL, positive patella reflex BL. BACK: Tenderness elicited with palpation of lower back. Surgical scars of back surgery appreciated. No CVA tenderness. Medications and IVs Current Medications Medications (Trade) Dose Ordered Sig/Ivette Route Start Time Stop Time Status Last Admin (NS Flush) 2 ml UNSCH PRN IV FLUSH 02/04/17 19:15 (NS Flush) 2 ml BID IV FLUSH 02/04/17 21:00 02/05/17 09:25 (Tylenol) 650 mg Q4H PRN PO 02/04/17 19:15 (Zofran Inj) 4 mg Q6H PRN IVP 02/04/17 19:15 02/05/17 13:49 (Lovenox Inj) 40 mg Q24H SQ 02/04/17 21:00 02/04/17 21:28 (Tylenol) 650 mg Q6H PRN PO 02/04/17 19:15 (Muir 5-325 Mg) 1 tab Q4H PRN PO 02/04/17 19:15 (Muir 10-325 Mg) 1 tab Q4H PRN PO 02/04/17 19:15 02/05/17 12:27 (Morphine Inj) 4 mg Q3H PRN IV PUSH 02/04/17 21:00 02/04/17 21:29 (Narcan Inj) 0.4 mg UNSCH PRN IV 02/04/17 19:15 (Edda-Colace) 1 tab BID PO 02/04/17 21:00 02/05/17 09:25 (Milk Of Magnesia Liq) 30 ml Q12H PRN PO 02/04/17 19:15 (Senokot) 17.2 mg Q12H PRN PO 02/04/17 19:15 (Dulcolax Supp) 10 mg DAILY PRN RECTAL 02/04/17 19:15 Lactulose 30 ml 30 ml DAILY PRN PO 02/04/17 19:15 (Rocephin Inj/NS Inj) 100 ml @ 200 mls/hr Q24H IV 02/05/17 06:00 02/05/17 05:13 (Synthroid) 75 mcg DAILY@06 PO 02/05/17 06:00 02/05/17 05:14 (Dilantin) 300 mg DAILY PO 02/05/17 09:00 02/05/17 09:25 (PHENobarbital) 32.4 mg BID PO 02/04/17 21:00 02/05/17 09:25 (Catapres) 0.1 mg Q6H PRN PO 02/05/17 11:00 Urinary Catheter: No Vascular Central Line Catheter: No A/P Problem List: (1) Fracture of lumbar spine ICD Code: S32.009A Status: Acute Plan: - CT scan shows eccentric fracture of the L4 superior endplate without retropulsed fragments - Pain control with oral Mu[place] and IV Morphine - consult neurosurgery - pending - consult PT (2) Fall ICD Code: W19.XXXA Status: Acute Plan: Patient denies hitting her head or losing consciousness. His therapy evaluation. (3) UTI (urinary tract infection) ICD Code: N39.0 Status: Acute Plan: - Urinalysis positive for WBC, WBC clumps and epithelial cells. - culture pending -Continue IV Rocephin (4) Seizure disorder ICD Code: G40.909 Status: Acute Plan: No evidence of seizures. Home anticonvulsants medications. The patient is currently on phenytoin 300 mg by mouth daily. As per family members the patient had an episode of vomiting and was looking like if she wasn't have a seizure, however there has not been a seizure reported. Assessment and Plan DVT prophylaxis: SCDs, Lovenox subcutaneous. Problem Qualifiers (1) Fracture of lumbar spine: Qualified Code: S32.049A - Closed fracture of fourth lumbar vertebra, unspecified fracture morphology, initial encounter (2) Fall: Qualified Code: W19.XXXD - Fall, subsequent encounter (3) UTI (urinary tract infection): Qualified Code: N30.00 - Acute cystitis without hematuria Walter Lopez MD Feb 05, 2017 12:44
[2017-02-05 16:00] VITALS: BP 136/72; PULSE 79; RESP 19; TEMP 97.6; O2SAT 96
[2017-02-05] MEDS: ACETAMINOPHEN 325 MG TAB PO PRN (17:23)
[2017-02-05 20:00] VITALS: BP 124/62; PULSE 99; RESP 20; TEMP 97.6; O2SAT 91
[2017-02-05] MEDS: ENOXAPARIN SODIUM 40 MG/0.4 ML SYRINGE SQ SCH (20:16)
[2017-02-05] MEDS: MORPHINE SULFATE 8 MG/ML INJ IV PUSH PRN (22:44)
--- NOTE | 2017-02-05 23:41 | EKG ---
Date Performed: 02/04/2017 Time Performed: 15:00:51 PTAGE: 61 years EKG: Sinus rhythm NONSPECIFIC T-WAVE ABNORMALITY BORDERLINE ECG PREVIOUS TRACING : 08/01/2016 08.17 DOCTOR: Laila Pedraza Interpretating Date/Time 02/05/2017 23:39:47
[2017-02-06] VITALS (7 sets, daily range): BP systolic 151–167; BP diastolic 72–84; PULSE 76–93; RESP 18–20; TEMP 96.8–98.4; O2SAT 81–96
[2017-02-06] MEDS: LEVOTHYROXINE SODIUM 75 MCG TAB PO SCH (05:24)
[2017-02-06] MEDS: cefTRIAXone INJ 2,000 MG in SODIUM CHLORIDE 0.9% INJ 100 ML IV SCH (05:24)
[2017-02-06] MEDS: MORPHINE SULFATE 8 MG/ML INJ IV PUSH PRN ×2 (05:25→23:28)
[2017-02-06] MEDS: ACETAMINOPHEN/HYDROcodone 325 MG/10 MG TAB PO PRN (08:08)
[2017-02-06] MEDS: DOCUSATE SODIUM 50 MG/SENNA 8.6 MG TAB PO SCH ×2 (08:08→20:43)
[2017-02-06] MEDS: PHENobarbital 32.4 MG TAB PO SCH ×2 (08:35→20:43)
[2017-02-06] MEDS: PHENYTOIN SODIUM 100 MG CAP PO SCH (08:35)
[2017-02-06] MEDS: SODIUM CHLORIDE 0.9% FLUSH 10 ML FLUSH IV FLUSH SCH ×2 (08:37→20:44)
--- NOTE | 2017-02-06 13:26 | PD.WCN.NOT ---
Wound Consult Description: Patient seen on 3rd floor [facility] for screening of possible pressure injury to L buttock noted on nursing documentation. Patient turned to R side with assistance of Mandi JACOBO [facility] and removed saturated briefs on patient.Removed adhesive foam dressing in place to reveal a full thickness wound to L buttock with mixed etiology of moisture pressure and friction. Cleansed wound with normal saline .Wound bed is noted with ~30% pink tissue,~ 40% pale red tissue and ~30% adipose tissue.Presence of adipose tissue indicates stage 3 . Wound measures 3.2cm x 1.4 cm x ~0.1 cm. Wound margins are jagged with new epithelial tissue forming. Periwound is unremarkable. Removed urine soaked pads. Patient buttock area cleansed with soap and water before applying new clean absorbent pads under patient in staggered fashion. Skin prep applied to periwound before applying Allevyn gentle border adhesive foam dressing in place. Patient also assessed with smaller full thickness wound to R medial gluteal cleft. Cleansed wound with normal saline.Wound measures 0.3cm x 0.6cmx slough. Periwound is unremarkable. Sprayed skin prep to periwound. Adhesive foam dressing covering wound to L buttock, is covering R medial gluteal cleft wound. Patient has been unable to walk or move much since injuring herself from fall at Doctors office. Per patient that's when wound started.Positioned patient to R side supported by pillows. Lowered bed to a safe height before leaving room. Communicated with: ODALIS Raymond and Doctor Estevez Recommendation: Recommend to cleanse wounds to L buttock and R medial gluteal cleft with normal saline or wound cleanser and pat dry. Apply adhesive foam dressing in place. Please change every 3 days or change PRN if saturated or dislodged. Please spray periwound with skin prep before applying adhesive to skin. Additional Information: Patient may need specialty pressure relieving bed such as [facility] bed or [facility] K-4 bed if patient remains in hospital and is not discharged. Registered Clinical Dietitian consult ordered per protocol. Tanisha Tran [facility] Feb 06, 2017 13:26
[2017-02-06] MEDS: ACETAMINOPHEN 325 MG TAB PO PRN ×2 (14:09→20:44)
--- NOTE | 2017-02-06 16:16 | HHI.PR ---
Subjective Remarks Patient seen and evaluated today for back pain after fall with lumbar fracture. The patient with some wounds on buttocks and is evaluated by wound care team. Care plan discussed with patient and with wound care nurse and case management. Mom at bedside and agreeable with patient evaluation for rehabilitation discussed with PT Objective Vitals Vital Signs Date Time Temp Pulse Resp B/P Pulse Ox O2 Delivery O2 Flow Rate FiO2 02/06/17 15:35 18 02/06/17 12:00 97.2 76 18 157/72 94 02/06/17 08:13 Nasal Cannula 3.00 02/06/17 08:10 92 Nasal Cannula 3.00 02/06/17 08:00 96.8 91 20 156/72 93 02/06/17 01:00 92 Nasal Cannula 3.00 02/06/17 00:00 98.4 93 20 151/79 81 02/06/17 00:00 85 Nasal Cannula 3.00 02/05/17 20:00 97.6 99 20 124/62 91 I/O 02/05/17 02/05/17 02/05/17 02/06/17 02/06/17 02/06/17 07:00 15:00 23:00 07:00 15:00 23:00 Intake Total 50 ml 600 ml 780 ml 100 ml Balance 50 ml 600 ml 780 ml 100 ml Intake Oral 600 ml 680 ml 100 ml IV Total 50 ml 100 ml # Voids 3 2 4 # Bowel Movements 1 0 Result Diagram: 02/05/17 0610 02/05/17 0610 Imaging Last Impressions Chest X-Ray 02/04/17 1452 Signed Impressions: Service Date/Time: Saturday, February 04, 2017 15:29 - CONCLUSION: Stable chest appearance. No acute disease. Peter Wright MD Pelvis CT 02/04/17 0000 Signed Impressions: Service Date/Time: Saturday, February 04, 2017 15:04 - CONCLUSION: No acute disease. Chao Jackson MD Lumbar Spine CT 02/04/17 0000 Signed Impressions: Service Date/Time: Saturday, February 04, 2017 15:04 - CONCLUSION: 1. S- shaped thoracolumbar scoliosis with Howard rods in place. Hardware appears intact. 2. Eccentric fracture of the L4 superior endplate without retropulsed fragments. 3. Stable peripherally calcified prevertebral collection spanning L4 and L5 may reflect an old prevertebral hematoma. Daniel Desir MD Objective Remarks GENERAL: This is a frail female, in no apparent distress. CARDIOVASCULAR: Regular rate and rhythm without murmurs, gallops, or rubs. RESPIRATORY: Clear to auscultation. Breath sounds equal bilaterally. No wheezes , rales, or rhonchi. GASTROINTESTINAL: Abdomen soft, non-tender, nondistended. Normal active bowel sounds MUSCULOSKELETAL: Extremities without clubbing, cyanosis, or edema. NEURO: Alert & Oriented x4 to person, place, time, situation. Moves all ext x4 A/P Problem List: (1) Fracture of lumbar spine ICD Code: S32.009A Status: Acute Plan: After mechanical fall Eccentric fracture of the L4 superior endplate without retropulsed fragments Pain control with oral [place] and IV Morphine Neurosurgery recommends medical mgt only with outpatient follow up Continue PT (2) UTI (urinary tract infection) ICD Code: N39.0 Status: Acute Plan: Mixed mu, no further work up dc rocephin (3) Seizure disorder ICD Code: G40.909 Status: Acute Plan: Continue AEDs phenytoin 300 mg by mouth daily. stable (4) Hypothyroidism ICD Code: E03.9 Status: Acute (5) Sacral wound ICD Code: S31.000A Status: Acute Plan: Continue wound care. Discharge Planning eval for inpatient rtehab pending cont pt/ot LMWH dvt ppx Problem Qualifiers (1) Fracture of lumbar spine: Qualified Code: S32.049A - Closed fracture of fourth lumbar vertebra, unspecified fracture morphology, initial encounter (2) UTI (urinary tract infection): Qualified Code: N30.00 - Acute cystitis without hematuria Yaneth Estevez MD Feb 06, 2017 16:16
[2017-02-06] MEDS: LOSARTAN 25 MG TAB PO SCH (17:34)
[2017-02-06] MEDS: ENOXAPARIN SODIUM 40 MG/0.4 ML SYRINGE SQ SCH (20:43)
[2017-02-07] VITALS: BP 140/65; PULSE 83; RESP 18; TEMP 99.8; O2SAT 97
[2017-02-07] MEDS: ACETAMINOPHEN 325 MG TAB PO PRN (06:18)
[2017-02-07] MEDS: LEVOTHYROXINE SODIUM 75 MCG TAB PO SCH (06:18)
--- NOTE | 2017-02-07 08:43 | RADRPT ---
EXAM DATE/TIME: 02/07/2017 08:02 [place] COMPARISON: No previous studies available for comparison. INDICATIONS : Left leg swelling. MEDICAL HISTORY : Arthritis. Osteoporosis. Thyroid disease. Epilepsy. Scoliosis. SURGICAL HISTORY : Bilateral cataracts. Right ear tube. Right leg reconstruction. Back douglas rods. Blood transfusio ns. ENCOUNTER: Initial ACUITY: 2 day PAIN SCORE: 8/10 LOCATION: Left leg. TECHNIQUE: Venous ultrasound of the leg was performed from the inguinal ligament to the proximal calf. Real-jackelyn e, color Doppler and spectral tracing, compression and augmentation techniques were used. FINDINGS: There is normal compressibility of the deep venous system from the inguinal region to the proximal ca lf. No echogenic clot is seen in the lumen of the common femoral, femoral, popliteal, and posterior tibial veins. There is a normal response of the venous system to proximal and distal augmentation an d respiration. CONCLUSION: No evidence of deep venous thrombosis within the left lower extremity. Jose Singh MD on February 07, 2017 at 8:39 Board Certified Radiologist. This report was verified electronically.
[2017-02-07] MEDS: PHENYTOIN SODIUM 100 MG CAP PO SCH (08:59)
[2017-02-07] MEDS: LOSARTAN 25 MG TAB PO SCH (08:59)
[2017-02-07] MEDS: DOCUSATE SODIUM 50 MG/SENNA 8.6 MG TAB PO SCH (08:59)
[2017-02-07] MEDS: PHENobarbital 32.4 MG TAB PO SCH (08:59)
[2017-02-07] MEDS: SODIUM CHLORIDE 0.9% FLUSH 10 ML FLUSH IV FLUSH SCH (09:00)
[2017-02-07 09:45] VITALS: BP 111/60; PULSE 73; RESP 15; TEMP 98.1; O2SAT 99
[2017-02-07] MEDS ORDERED: HYDR-3516 PO (12:08)
[2017-02-07] MEDS ORDERED: ACET1TAB86 PO (12:08)
--- NOTE | 2017-02-07 12:09 | HHI.DCPOC ---
Discharge Care Plan Diagnosis: (1) Fracture of lumbar spine Goals to Promote Your Health * To prevent worsening of your condition and complications * To maintain your health at the optimal level Directions to Meet Your Goals Take your medications as prescribed Follow your dietary instruction Follow activity as directed Keep your appointments as scheduled Take your immunizations and boosters as scheduled If your symptoms worsen call your PCP, if no PCP go to Urgent Care Center or Emergency Room Smoking is Dangerous to Your Health. Avoid second hand smoke Call the 24-hour hour crisis hotline for domestic abuse at Yaneth Estevez MD Feb 07, 2017 12:09
--- NOTE | 2017-02-07 12:13 | HHI.DS ---
Joann Discharge Summary Admission Date Feb 04, 2017 at 17:17 Discharge Date: Feb 07, 2017 Admitting Diagnosis L4 Fx, Fall, Cystitis, CP (1) Fracture of lumbar spine ICD Code: S32.009A (2) Seizure disorder ICD Code: G40.909 (3) Hypothyroidism ICD Code: E03.9 (4) Sacral wound ICD Code: S31.000A (5) Cystitis ICD Code: N30.90 Procedures none Brief History - From Admission 61 year old female presenting with back pain and weakness after a fall. Patient states she was walking to her car this morning to see her doctor and her right knee gave out and she fell. She was unable to get up by herself. Her friend helped her up. They called 911 and she was brought to [facility] today. In the ER there she was sent home and told it was just bruising. She did not want to go home because she could not walk and knew she could not take care of herself. When they left the ER and went home, she could not get out of the car. Her friend lifted her up and brought her to her door. She could not move so she called her doctors and they told her to go back to the ER. In the [place] ED and CT lumbar spine showed S- shaped thoracolumbar scoliosis with Howard rods in place. Hardware appears intact. Eccentric fracture of the L4 superior endplate without retropulsed fragments. Stable peripherally calcified prevertebral collection spanning L4 and L5 may reflect an old prevertebral hematoma. Currently she is having lower back pain that does not radiate. No numbness or tingling down her legs. She has left lower leg swelling that has been present since she sprained her ankle a few weeks ago. She has a history of scoliosis. CBC/BMP: 02/05/17 0610 02/05/17 0610 Significant Findings Laboratory Tests Test 02/04/17 02/04/17 02/05/17 15:00 15:40 06:10 White Blood Count 11.1 TH/MM3 (4.0-11.0) Red Blood Count 3.89 MIL/MM3 3.59 MIL/MM3 (4.00-5.30) (4.00-5.30) Platelet Count 122 TH/MM3 105 TH/MM3 (150-450) (150-450) Neutrophils (%) (Auto) 86.4 % 76.2 % (16.0-70.0) (16.0-70.0) Lymphocytes (%) (Auto) 5.5 % (9.0-44.0) Neutrophils # (Auto) 9.6 TH/MM3 (1.8-7.7) Lymphocytes # (Auto) 0.6 TH/MM3 0.8 TH/MM3 (1.0-4.8) (1.0-4.8) Prothrombin Time 14.3 SEC (9.8-11.6) Estimat Glomerular Filtration 71 ML/MIN (>89) Rate Random Glucose 119 MG/DL 113 MG/DL (74-106) (74-106) Calcium Level 8.4 MG/DL 7.8 MG/DL (8.5-10.1) (8.5-10.1) Alkaline Phosphatase 130 U/L (45-117) Troponin I LESS THAN 0.02 NG/ML (0.02-0.05) Urine Occult Blood SMALL (NEG) Urine Leukocyte Esterase TRACE (NEG) Urine WBC 25-49 /hpf (0-5) Urine WBC Clumps FEW (NONE) Urine Squamous Epithelial 6-8 /hpf (0-5) Cells Urine Hyaline Casts 3-5 /lpf (RARE) Urine Mucus FEW /lpf (OCC) Hemoglobin 11.0 GM/DL (11.6-15.3) Hematocrit 33.3 % (35.0-46.0) Monocytes (%) (Auto) 10.8 % (0.0-8.0) Albumin 3.0 GM/DL (3.4-5.0) Imaging Last Impressions Lower Extremity Ultrasound 02/07/17 0000 Signed Impressions: Service Date/Time: Tuesday, February 07, 2017 08:02 - CONCLUSION: No evidence of deep venous thrombosis within the left lower extremity. Jose Singh MD Chest X-Ray 02/04/17 1452 Signed Impressions: Service Date/Time: Saturday, February 04, 2017 15:29 - CONCLUSION: Stable chest appearance. No acute disease. Peter Wright MD Pelvis CT 02/04/17 0000 Signed Impressions: Service Date/Time: Saturday, February 04, 2017 15:04 - CONCLUSION: No acute disease. Chao Jackson MD Lumbar Spine CT 02/04/17 0000 Signed Impressions: Service Date/Time: Saturday, February 04, 2017 15:04 - CONCLUSION: 1. S- shaped thoracolumbar scoliosis with Howard rods in place. Hardware appears intact. 2. Eccentric fracture of the L4 superior endplate without retropulsed fragments. 3. Stable peripherally calcified prevertebral collection spanning L4 and L5 may reflect an old prevertebral hematoma. Daniel Desir MD PE at Discharge GENERAL: This is a frail female, in no apparent distress. CARDIOVASCULAR: Regular rate and rhythm without murmurs, gallops, or rubs. RESPIRATORY: Clear to auscultation. Breath sounds equal bilaterally. No wheezes , rales, or rhonchi. GASTROINTESTINAL: Abdomen soft, non-tender, nondistended. Normal active bowel sounds MUSCULOSKELETAL: Extremities without clubbing, cyanosis, or edema. NEURO: Alert & Oriented x4 to person, place, time, situation. Moves all ext x4 Pt update on day of discharge Patient seen today. Discharge plans discussed with patient. No new events. Discussed with physical therapy Hospital Course Patient was seen and treated for mechanical fall. His chronic weakness from scoliosis and from arthritis. Patient did have fractured the lumbar spine which is recommended for supportive care with tslo and with physical therapy. Patient did well. She does have seizure disorder and this was controlled with her home Dilantin. Urinalysis was abnormal however patient did have culture negative urine Pt Condition on Discharge: Good Discharge Disposition: Discharge to SNF Discharge Time: > 30 minutes Discharge Instructions Follow up Referrals: Neurosurgery - 2 Weeks New Medications: Acetaminophen (Eq Acetaminophen) 325 Mg Tab 650 MG PO Q4H PRN TEMP > 100.4 #90 TAB Hydrocodone-Acetaminophen (Hydrocodone-Acetaminophen) 5-325 mg Tab 1 TAB PO Q4H PRN pain #30 TAB Continued Medications: Alendronate (Fosamax) 70 Mg Tab 70 MG PO Q7D Osteoporosis Treatment #4 Ref 0 TAB Calcium Carbonate (Calcium Carbonate) 1,500 Mg Tab 1500 MG PO DAILY 1,500 mg calcium carbonate (600 mg elemental calcium) Calcium Supplement Ref 0 TAB Cholecalciferol (Vitamin D3) 1,000 Unit Cap 1000 UNITS PO DAILY Nutritional Supplement #1 Ref 0 BOTTLE Docusate Sodium (Stool Softener Extra Strength) 250 Mg Cap 250 MG PO DAILY PRN CONSTIPATION CAP Levothyroxine (Levothyroxine) 75 Mcg Tab 75 MCG PO DAILY Thyroid #30 Ref 0 TAB Multiple Vitamin (Multiple Vitamin) 1 Tab 1 TAB PO DAILY Nutritional Supplement Ref 0 TAB Phenobarbital (Phenobarbital) 30 Mg Tab 30 MG PO BID Control Seizures #60 Ref 0 TAB Phenytoin Extended (Dilantin) 100 Mg Cap 300 MG PO DAILY Control Seizures #270 Ref 0 CAP Discontinued Medications: Acetaminophen-Codeine (Tylenol-Codeine #3) 300-30 mg Tab 1 TAB PO Q6HR PRN HEADACHE #20 TAB Yaneth Estevez MD Feb 07, 2017 12:13
[2017-02-07 12:30] VITALS: BP 135/60; PULSE 92; RESP 15; TEMP 96.2; O2SAT 93
== END 2017-02-07 15:31 | DRG 552 ==
LOC: PHED 14:18 → PHEDA 17:17 → PH3B 18:47
PROVIDERS: ADMIT Hospitalist; ATTEND Hospitalist
DX: S32.049A Unspecified fracture of fourth lumbar vertebra, initial encounter for closed fracture (principal); N39.0 Urinary tract infection, site not specified; M41.9 Scoliosis, unspecified; E03.9 Hypothyroidism, unspecified; G40.909 Epilepsy, unspecified, not intractable, without status epilepticus; M19.90 Unspecified osteoarthritis, unspecified site; W18.39XA Other fall on same level, initial encounter; Y92.481 Parking lot as the place of occurrence of the external cause; M81.0 Age-related osteoporosis without current pathological fracture
CPT/HCPCS: 71010; 72131; 72192; 80053; 80185; 81001; 84484; 85025; 85610; 85730; 87086; 93005; 93971; 96374; J0696; J1650; J2270; J2405; L0200; L0484

== ENCOUNTER 2017-03-07 03:45 | Inpatient (IN) | payer MEDICARE, OTHER ==
[2017-03-07] VITALS (20 sets, daily range): BP systolic 116–153; BP diastolic 43–86; PULSE 92–112; RESP 16–20; TEMP 96–98.8; O2SAT 93–100
[~2017-03-07] VITALS: Ht 162.6 cm; Wt 89.3 kg
[~2017-03-07 03:45] MED LIST changes: +ACET1TAB86 PO; -CALC600T12 PO; -CENTTAB PO; +HYDR-3516 PO; -TYLETAB34 PO
[2017-03-07] MEDS ORDERED: DILA100C PO (04:41)
[2017-03-07 04:45] LABS: AUTOMATED NEUTROPHIL # 4.6 TH/MM3 (1.8-7.7); BASOPHIL % 0.7 % (0.0-2.0); EOSINOPHIL # 0.2 TH/MM3 (0-0.4); EOSINOPHIL % 2.6 % (0.0-4.0); HEMATOCRIT 21.1 % (35.0-46.0); LYMPH % 12.6 % (9.0-44.0); LYMPHOCYTE # 0.8 TH/MM3 (1.0-4.8); MEAN CELL VOLUME 91.2 FL (80.0-100.0); MEAN CORPUSCULAR HEMOGLOBIN 30.3 PG (27.0-34.0); MEAN CORPUSCULAR HGB CONC 33.2 % (32.0-36.0); MONO % 10.4 % (0.0-8.0); NEUT % 73.7 % (16.0-70.0); PLATELET COUNT 55 TH/MM3 (150-450); RED BLOOD COUNT 2.31 MIL/MM3 (4.00-5.30); RED CELL DISTRIBUTION WIDTH 13.9 % (11.6-17.2); WHITE BLOOD COUNT 6.2 TH/MM3 (4.0-11.0)
[2017-03-07 04:46] LABS: HEMO FLAGS AUTO DIFF
[2017-03-07] MEDS ORDERED: SENN1TAB PO (04:48)
[2017-03-07] MEDS ORDERED: POLY17S PO (04:48)
[2017-03-07] MEDS ORDERED: NEUR100C PO (04:48)
[2017-03-07] MEDS ORDERED: VITA10002 PO (04:48)
[2017-03-07] MEDS ORDERED: OMEP20TA PO (04:48)
[2017-03-07] MEDS ORDERED: MAGN100T2 PO (04:48)
[2017-03-07] MEDS ORDERED: METO-309 PO (04:48)
[2017-03-07] MEDS ORDERED: VITA250C3 CHEW (04:48)
[2017-03-07] MEDS ORDERED: MOBI7.5T PO (04:48)
[2017-03-07 04:54] LABS: POTASSIUM 4.2 MEQ/L (3.5-5.1)
[2017-03-07 04:57] LABS: BICARBONATE 32.8 MEQ/L (21.0-32.0)
[2017-03-07 05:05] LABS: PLATELET ESTIMATE SMEAR LOW (NORMAL); PLATELET MORPHOLOGY NORMAL (NORMAL); SCAN/DIFF AUTO DIFF CONFIRMED
--- NOTE | 2017-03-07 05:06 | PD ---
HPI Chief Complaint: Bleeding Time Seen by Provider: 04:09 Travel History International Travel<30 days: No Contact w/Intl Traveler<30days: No Traveled to known affect area: No History of Present Illness HPI 61-year-old female presents to the emergency department from group home for bleeding from her back. Patient has large extensive trunk hemangioma that developed spontaneous bleeding overnight. According the patient she started noticing symptoms around 7 PM. Intermittently the nursing facility was putting on gauze pads and applying some direct pressure without success so follow decided to bring the patient to the emergency room. Patient presents by EMS transport. Patient's had no dizziness lightheadedness shortness of breath syncope or near syncope. Patient is essentially bedbound after recent non- syncopal slip and fall 02/06/17 [address] her leg gave way on her walk she was walking with her walker and she sustained a fracture of the superior endplates of L4 without retropulsion. Patient was placed on a GingerdO back brace and has been wearing that. Since applying the brake she has developed some abrasion with some mild superficial ulceration of the right flank area and this evening starting have from one of the sites. Paramedics report that there is a large amount of blood clots on the patient's bed. Patient had been hospitalized after her L4 to L5 fracture 02/06/17 and at that time her hemoglobin was 11. Patient has history of large truncal angioma, excision of mass from the right lower extremity, seizure disorder, peripheral neuropathy, hypothyroidism, arthritis, and scoliosis with remote Jim gisel placement. PFSH Past Medical History Narrative Medical L4 superior endplate fracture nondisplaced, large truncal angioma, excision of mass from the right lower extremity, seizure disorder, peripheral neuropathy, hypothyroidism, arthritis, scoliosis with remote Jim gisel placement; no tobacco use; nursing notes reviewed Arthritis: Yes Anxiety: No Depression: No Cancer: No Cardiovascular Problems: No Cerebrovascular Accident: No Diabetes: No Diminished Hearing: No Endocrine: Yes Genitourinary: No Hepatitis: No Hiatal Hernia: No Immune Disorder: No Musculoskeletal: Yes (SCOLIOSIS) Neurologic: Yes (EPILEPSY/ contolled with medications) Psychiatric: No Reproductive: No Respiratory: No Migraines: No Seizures: Yes Thyroid Disease: Yes Tetanus Vaccination: Unknown Influenza Vaccination: No ?: Not Menopausal: Yes Past Surgical History Abdominal Surgery: No AICD: No Body Medical Devices: JIM RODS IN BACK Cardiac Surgery: No Ear Surgery: Yes (tube in right ear) Endocrine Surgery: No Eye Surgery: Yes (BILATERAL CATARACTS) Genitourinary Surgery: No Gynecologic Surgery: No Joint Replacement: No Oral Surgery: No Pacemaker: No Thoracic Surgery: No Tympanostomy Tube: Yes Other Surgery: Yes Social History Alcohol Use: No Tobacco Use: No Substance Use: No Allergies-Medications (Allergen,Severity, Reaction): Coded Allergies: Coconut (Verified Allergy, Severe, Anaphylaxis, 03/07/17) Pea (Verified Allergy, Severe, Anaphylaxis, 03/07/17) Achromycin V (Verified Allergy, Unknown, 03/07/17) Erythromycin (Verified Allergy, Unknown, 03/07/17) Reported Meds & Prescriptions Reported Meds & Active Scripts Active Eq Acetaminophen (Acetaminophen) 325 Mg Tab 650 Mg PO Q4H PRN Reported Senna-Plus (Sennosides-Docusate Sodium) 8.6-50 Mg Tab 2 Tab PO DAILY Polyethylene Glycol 3350 Powder (Polyethylene Glycol) 17 Gm Pow 17 Gm PO DAILY Lopressor (Metoprolol Tartrate) 50 Mg Tab 12.5 Mg PO BID Vitamin C (Ascorbic Acid) 250 Mg Chew 500 Mg CHEW BID Magnesium Citrate 100 Mg Tab 296 Ml PO DAILY Omeprazole 20 Mg Tab 20 Mg PO DAILY Vitamin B-12 (Cyanocobalamin) 1,000 Mcg Tab 1,000 Mcg PO DAILY Mobic (Meloxicam) 7.5 Mg Tab 7.5 Mg PO DAILY Neurontin (Gabapentin) 100 Mg Cap 100 Mg PO TID Dilantin (Phenytoin Extended) 100 Mg Cap 200 Mg PO DAILY Phenobarbital 30 Mg Tab 30 Mg PO BID Multiple Vitamin 1 Tab 1 Tab PO DAILY Calcium Carbonate 1,500 Mg Tab 1,500 Mg PO DAILY 1,500 mg calcium carbonate (600 mg elemental calcium) Stool Softener Extra Strength (Docusate Sodium) 250 Mg Cap 250 Mg PO DAILY PRN Vitamin D3 (Cholecalciferol) 1,000 Unit Cap 1,000 Units PO DAILY Fosamax (Alendronate Sodium) 70 Mg Tab 70 Mg PO Q7D Dilantin (Phenytoin Extended) 100 Mg Cap 300 Mg PO BID Levothyroxine (Levothyroxine Sodium) 75 Mcg Tab 75 Mcg PO DAILY Review of Systems Except as stated in HPI: all other systems reviewed are Neg Physical Exam Narrative GENERAL: Well-developed, frail appearing female in no acute distress no respiratory distress SKIN: Warm and dry. Large right trunk and flank hemangiomata with active bleeding under pressure with large area of clotted blood on stretcher sheet and dressing. HEAD: Normocephalic. EYES: No scleral icterus. No injection or drainage. NECK: Supple, trachea midline. No JVD or lymphadenopathy. CARDIOVASCULAR: Regular rate and rhythm without murmurs, gallops, or rubs. RESPIRATORY: Breath sounds equal bilaterally. No accessory muscle use. GASTROINTESTINAL: Abdomen soft, non-tender, nondistended. MUSCULOSKELETAL: No cyanosis, or edema. BACK: Nontender without obvious deformity. No CVA tenderness. Data Data Last Documented VS Vital Signs Date Time Temp Pulse Resp B/P Pulse Ox O2 Delivery O2 Flow Rate FiO2 03/07/17 04:46 92 16 125/56 98 Room Air 03/07/17 04:10 97.9 03/07/17 03:55 2 Orders Basic Metabolic Panel (Bmp) (03/07/17 04:09) Complete Blood Count With Diff (03/07/17 04:09) Iv Access Insert/Monitor (03/07/17 04:09) Type And Screen (03/07/17 04:09) Acetaminophen (Tylenol) (03/07/17 05:30) Vital Signs (Adult) Q4H (03/07/17 05:44) Activity Oob With Assistance (03/07/17 05:44) [place] Laborer / Telemetry .CONTINUOUS (03/07/17 05:44) Diet Heart Healthy (03/07/17 Breakfast) Sodium Chloride 0.9% Flush (Ns Flush) (03/07/17 05:45) Sodium Chloride 0.9% Flush (Ns Flush) (03/07/17 09:00) Basic Metabolic Panel (Bmp) (03/08/17 06:00) Complete Blood Count With Diff (03/08/17 06:00) Pt Request For Service (03/07/17 05:44) Case Management Consult (03/07/17 05:44) Naloxone Inj (Narcan Inj) (03/07/17 05:45) Red Blood Cells (Rbc) (03/07/17 05:46) Labs Laboratory Tests Test 03/07/17 04:15 White Blood Count 6.2 TH/MM3 Red Blood Count 2.31 MIL/MM3 Hemoglobin 7.0 GM/DL Hematocrit 21.1 % Mean Corpuscular Volume 91.2 FL Mean Corpuscular Hemoglobin 30.3 PG Mean Corpuscular Hemoglobin 33.2 % Concent Red Cell Distribution Width 13.9 % Platelet Count 55 TH/MM3 Mean Platelet Volume 7.1 FL Neutrophils (%) (Auto) 73.7 % Lymphocytes (%) (Auto) 12.6 % Monocytes (%) (Auto) 10.4 % Eosinophils (%) (Auto) 2.6 % Basophils (%) (Auto) 0.7 % Neutrophils # (Auto) 4.6 TH/MM3 Lymphocytes # (Auto) 0.8 TH/MM3 Monocytes # (Auto) 0.6 TH/MM3 Eosinophils # (Auto) 0.2 TH/MM3 Basophils # (Auto) 0.0 TH/MM3 CBC Comment AUTO DIFF Differential Comment AUTO DIFF CONFIRMED Platelet Estimate LOW Platelet Morphology Comment NORMAL Red Cell Morphology Comment NORMAL Sodium Level 141 MEQ/L Potassium Level 4.2 MEQ/L Chloride Level 104 MEQ/L Carbon Dioxide Level 32.8 MEQ/L Anion Gap 4 MEQ/L Blood Urea Nitrogen 25 MG/DL Creatinine 0.49 MG/DL Estimat Glomerular Filtration 128 ML/MIN Rate Random Glucose 115 MG/DL Calcium Level 7.5 MG/DL MDM Medical Decision Making Medical Screen Exam Complete: Yes Emergency Medical Condition: Yes Medical Record Reviewed: Yes Differential Diagnosis Anemia, hemangioma trauma, pressure ulcer, abrasion Narrative Course Patient presents with bleeding from hemangiomata most likely secondary to avulsed superficial hemangioma at the surface; direct pressure applied and quick -clot powder applied with good hemostasis non-adhesive dressing along with topical Polysporin ointment applied and then pressure dressing applied with ice pack. Vital signs obtained and CBC with type and screen specimen collected. Patient identified to have anemia hemoglobin 7.0 compared to hemoglobin of 11 . Patient also noted to have thrombocytopenia 55,000 this is decreased from 105,000, 02/05/17. 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
[2017-03-07] MEDS ORDERED: ACETAMINOPHEN 325 MG TAB PO ONE (05:30)
[2017-03-07] MEDS ORDERED: NALOXONE HCL 0.4 MG/ML AMP IV PRN (05:45)
[2017-03-07] MEDS ORDERED: SODIUM CHLORIDE 0.9% FLUSH 10 ML FLUSH IV FLUSH PRN (05:45)
[2017-03-07] MEDS ORDERED: SODIUM CHLORIDE 0.9% FLUSH 10 ML FLUSH IVF PRN (06:00)
[2017-03-07] MEDS ORDERED: SODIUM CHLORIDE 0.9% FLUSH 10 ML FLUSH IV FLUSH SCH (09:00)
[2017-03-07] MEDS: SODIUM CHLORIDE 0.9% FLUSH 10 ML FLUSH IV FLUSH SCH ×2 (09:10→21:28)
--- NOTE | 2017-03-07 11:23 | HHI.HP ---
[facility] Ketan David DO Admission Diagnosis R flank hemangioma w/ bleeding; anemia; thrombocytopenia Diagnoses: Chief Complaint: Bleeding Travel History International Travel<30 Days: No Contact w/Intl Traveler <30 Da: No Traveled to Known Affected Are: No History of Present Illness Patient is a 61-year-old female who had come to the emergency room overnight after significant bleeding occurred at her rehabilitation facility. She has a chronic right sided hemangioma apparently there is some injury to the area with persistent bleeding. Her hemoglobin had dropped to 7 and the patient was tachycardic. She came to the emergency room for further evaluation. Patient has had some abdominal discomfort and reports some distention. She was brought into the emergency room by EMS. Paramedics reported that there was a large amount of clotting in her bed. Patient says she had felt some leaking but thought she had just been incontinent of urine. Last hemoglobin is 11 and again today was 7. Patient received blood transfusion and then admitted to the hospital for bleeding. She has had worsening of her chronic, thrombocytopenia and is recommended for further evaluation. [facility]. For these reasons she has been monitored here in this facility Review of Systems Constitutional: COMPLAINS OF: Fatigue, DENIES: Diaphoretic episodes, Fever, Weight gain, Weight loss, Chills, Dizziness, Change in appetite, Night Sweats Endocrine: DENIES: Abnorml menstrual pattern, Heat/cold intolerance, Polydipsia , Polyuria, Polyphagia Eyes: DENIES: Blurred vision, Diplopia, Eye inflammation, Eye pain, Vision loss , Photosensitivity, Double Vision Ears, nose, mouth, throat: DENIES: Tinnitus, Hearing loss, Vertigo, Nasal discharge, Oral lesions, Throat pain, Hoarseness, Ear Pain, Running Nose, Epistaxis, Sinus Pain, Toothache, Odynophagia Respiratory: DENIES: Apneas, Cough, Snoring, Wheezing, Hemoptysis, Sputum production, Shortness of breath Genitourinary: DENIES: Abnormal vaginal bleeding, Dysmenorrhea, Dyspareunia, Sexual dysfunction, Urinary frequency, Urinary incontinence, Urgency, Hematuria , Dysuria, Nocturia, Vaginal discharge Musculoskeletal: COMPLAINS OF: Joint pain, Muscle aches, Stiffness, Back pain, DENIES: Joint Swelling, Neck pain Integumentary: DENIES: Abnormal pigmentation, Pruritus, Rash, Nail changes, Breast masses, Breast skin changes, Nipple discharge Hematologic/lymphatic: COMPLAINS OF: Bruising, DENIES: Lymphadenopathy Immunologic/allergic: DENIES: Eczema, Urticaria Neurologic: DENIES: Abnormal gait, Headache, Localized weakness, Paresthesias, Seizures, Speech Problems, Tremor, Poor Balance Psychiatric: DENIES: Anxiety, Confusion, Mood changes, Depression, Hallucinations, Agitation, Suicidal Ideation, Homicidal Ideation, Delusions Past Family Social History Past Medical History 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 Sacral fracture and lumbar fracture, posttraumatic Seizure disorder Peripheral neuropathy Hypothyroidism Scoliosis Past Surgical History Back surgery Cataracts Ear surgery Reported Medications Reviewed in the medical record Allergies: Coded Allergies: Coconut (Verified Allergy, Severe, Anaphylaxis, 03/07/17) Pea (Verified Allergy, Severe, Anaphylaxis, 03/07/17) Achromycin V (Verified Allergy, Unknown, 03/07/17) Erythromycin (Verified Allergy, Unknown, 03/07/17) Active Ordered Medications Reviewed in the medical Family History Hypertension, mother is otherwise healthy Social History Recently relocated to rehabilitation post discharge 01/2017 No tobacco or alcohol dependency Physical Exam Vital Signs Vital Signs Date Time Temp Pulse Resp B/P Pulse Ox O2 Delivery O2 Flow Rate FiO2 03/07/17 10:30 136/59 03/07/17 10:15 98.6 102 17 118/56 96 03/07/17 10:00 98.6 97 18 130/51 95 03/07/17 09:45 98.8 99 17 120/66 95 03/07/17 09:30 98.6 98 19 121/59 94 03/07/17 09:15 98.7 103 18 124/55 95 03/07/17 09:03 98.8 101 18 138/56 95 03/07/17 08:00 96.6 102 18 125/57 93 03/07/17 07:30 95 21 03/07/17 06:17 112 16 118/56 98 Room Air 03/07/17 06:09 97 21 03/07/17 04:46 92 16 125/56 98 Room Air 03/07/17 04:10 97.9 93 18 131/43 100 03/07/17 03:55 99 Nasal Cannula 2 Physical Exam GENERAL: This is a well-nourished, well-developed patient, appears chronically ill SKIN:large right sided hemangioma with open areas of bleeding HEAD: Atraumatic. asymmetrical at baseline. No temporal or scalp tenderness. EYES: Pupils equal round and reactive. Extraocular motions intact. No scleral icterus. No injection or drainage. ENT: Nose without bleeding, purulent drainage or septal hematoma. Throat without erythema, tonsillar hypertrophy or exudate. Uvula midline. Airway patent. NECK: Trachea midline. No JVD or lymphadenopathy. Supple, nontender, no meningeal signs. CARDIOVASCULAR: Regular rate and rhythm without murmurs, gallops, or rubs. RESPIRATORY: Clear to auscultation. Breath sounds equal bilaterally. No wheezes , rales, or rhonchi. GASTROINTESTINAL: Abdomen soft, non-tender, nondistended. No hepato-splenomegaly , or palpable masses. No guarding. MUSCULOSKELETAL: Extremities without clubbing, cyanosis, or edema. No joint tenderness, effusion, or edema noted. No calf tenderness. Negative Homans sign bilaterally. NEUROLOGICAL: Awake and alert. Cranial nerves II through XII intact. Motor and sensory grossly within normal limits. Five out of 5 muscle strength in all muscle groups. Normal speech. Laboratory Laboratory Tests Test 03/07/17 03/07/17 04:15 05:52 White Blood Count 6.2 Red Blood Count 2.31 Hemoglobin 7.0 Hematocrit 21.1 Mean Corpuscular Volume 91.2 Mean Corpuscular Hemoglobin 30.3 Mean Corpuscular Hemoglobin 33.2 Concent Red Cell Distribution Width 13.9 Platelet Count 55 Mean Platelet Volume 7.1 Neutrophils (%) (Auto) 73.7 Lymphocytes (%) (Auto) 12.6 Monocytes (%) (Auto) 10.4 Eosinophils (%) (Auto) 2.6 Basophils (%) (Auto) 0.7 Neutrophils # (Auto) 4.6 Lymphocytes # (Auto) 0.8 Monocytes # (Auto) 0.6 Eosinophils # (Auto) 0.2 Basophils # (Auto) 0.0 CBC Comment AUTO DIFF Differential Comment AUTO DIFF CONFIRMED Platelet Estimate LOW Platelet Morphology Comment NORMAL Red Cell Morphology Comment NORMAL Sodium Level 141 Potassium Level 4.2 Chloride Level 104 Carbon Dioxide Level 32.8 Anion Gap 4 Blood Urea Nitrogen 25 Creatinine 0.49 Estimat Glomerular Filtration 128 Rate Random Glucose 115 Calcium Level 7.5 Blood Type AB POSITIVE Antibody Screen NEGATIVE Crossmatch Leukocyte-Reduced Red Blood Cells Blood Bank Comment Result Diagram: 03/07/17 0415 03/07/17 0415 Assessment and Plan Problem List: (1) Anemia ICD Code: D64.9 Status: Acute Plan: Likely from acute blood loss. Will follow up with CT abdomen and pelvis to rule out intra-abdominal bleeding given patient's discomfort and significant anemia Transfuse as needed (2) Seizure disorder ICD Code: G40.909 Status: Acute Plan: Patient on Dilantin and this may cause some bone marrow suppression which will need to be further evaluated We'll hold this for now Check Dilantin level (3) Hypothyroidism ICD Code: E03.9 Status: Acute Plan: Continue levothyroxine (4) Thrombocytopenia ICD Code: D69.6 Status: Acute Plan: Etiology unclear thrombocytopenia severe with some bleeding. Workup in progress Discussed Condition With Patient, RN, mom Problem Qualifiers (1) Anemia: Qualified Code: D64.9 - Anemia, unspecified type Yaneth Estevez MD Mar 07, 2017 11:23
[2017-03-07] MEDS ORDERED: PILL SPLITTER OTHER PRN (11:30)
[2017-03-07 11:50] LABS: INTERNATIONAL NORMALIZED RATIO 1.1 RATIO; PROTHROMBIN TIME - PATIENT 12.6 SEC (9.8-11.6)
[2017-03-07] MEDS ORDERED: DOCUSATE SODIUM 100 MG/10 ML UDC PO PRN (12:00)
[2017-03-07] MEDS ORDERED: DIATRIZOATE MEGLUM/DIATRIZOATE SOD 9 ML CUP PO ONE (12:15)
[2017-03-07] MEDS: METOPROLOL TARTRATE 25 MG TAB PO SCH ×2 (12:17→21:28)
[2017-03-07] MEDS: CALCIUM CARBONATE 1.25 GM (CA 500 MG) TAB PO SCH (12:18)
[2017-03-07] MEDS: CHOLECALCIFEROL (VIT D3) 1000 UNIT TAB PO SCH (12:18)
[2017-03-07] MEDS: CYANOCOBALAMIN 1,000 MCG TAB PO SCH (12:18)
[2017-03-07] MEDS: GABAPENTIN 100 MG CAP PO SCH ×2 (12:19→17:36)
[2017-03-07] MEDS: ACETAMINOPHEN 500 MG CPLT PO PRN ×2 (12:19→17:35)
[2017-03-07] MEDS: LEVOTHYROXINE SODIUM 75 MCG TAB PO SCH (12:22)
[2017-03-07] MEDS ORDERED: IOHEXOL 350 MG/ML 10 ML VIAL (for RAD DIAG) IV ONE (15:25)
--- NOTE | 2017-03-07 15:54 | RADRPT ---
EXAM DATE/TIME: 03/07/2017 15:00 [place] COMPARISON: CT ABDOMEN & PELVIS W CONTRAST, February 18, 2013, 18:36. CT PELVIS W/O CONTRAST, February 04, 2017, 15:04. INDICATIONS : Trauma. Fell 1 month ago. Right flank hemangioma with bleeding. Right flank contusion. Abdominal p ain and distention. IV CONTRAST: 85 cc Omnipaque 350 (iohexol) IV ORAL CONTRAST: Prescribed oral contrast ingested. RADIATION DOSE: 47369 CTDIvol (mGy) MEDICAL HISTORY : Seizures. Hypothyroidism. Scoliosis. SURGICAL HISTORY : None. Howard rods. ENCOUNTER: Initial ACUITY: 2 days PAIN SCALE: 4/10 LOCATION: Right flank TECHNIQUE: Volumetric scanning of the abdomen and pelvis was performed. Using automated exposure control and ad justment of the mA and/or kV according to patient size, radiation dose was kept as low as reasonably achievable to obtain optimal diagnostic quality images. DICOM format image data is available electro nically for review and comparison. FINDINGS: CT Abdomen: The pancreas, kidneys, adrenals are unremarkable. There is no evidence for any appreciabl e pathological adenopathy, free fluid, or bowel obstruction. Large right pleural effusion is present in the right lung base consolidation. There are multiple cystic lesions in the spleen present on the older exams the largest one measures 5.6 cm in size demonstrates rim like calcifications. The calcif ications have increased, however overall size decreased measured 7 cm on the prior exam. All of the o ther cystic lesions are also smaller within the spleen since that time. There is a small approximate 8 mm simple cyst in the quadrate lobe of the liver. Again noted are chronic and postsurgical changes of the spine with extensive large varix adjacent to the iliacus muscle on the right which extends to the paravertebral region. This varix demonstrates thrombus within it not present on the study from and the thrombus measures 4.2 cm in size. There are also large dilated collateral varices in the p keri on the right side not significantly changed extending into the right buttock and gluteus area. CT pelvis: There is no evidence for mass, abscess formation, or any significant adenopathy within the pelvis. CONCLUSION: 1. There is approximate 4 cm thrombus within a large varix on the right side which is a dilated vein adjacent to the iliacus muscle emanating from the paravertebral location. 2. 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 3. Reduction in size of the cystic masses in the spleen since 2013. 4. Right pleural effusion and right lung base consolidation. Saul Marie MD on March 07, 2017 at 15:30 Board Certified Radiologist. This report was verified electronically.
--- NOTE | 2017-03-07 20:33 | MB ---
cc: GODFREY TERRY ZAFAR MD DATE OF CONSULTATION 03/07/17 DATE OF 1955. PRIMARY CARE PHYSICIAN Dr. Godfrey Terry. REQUESTED BY Hospitalist service. REASON FOR CONSULTATION Anemia and thrombocytopenia secondary to acute blood loss from a large hemangioma associated with subcutaneous varices along the right flank and right lumbar area. CHIEF COMPLAINT Ms. Valdes reports being at [facility]. She reports undergoing dressing changes for a wound on her right flank. She reports shortly after having the dressing changes performed, she began to bleed uncontrollably. She was transferred to the [facility] emergency department for further workup and management. HISTORY OF PRESENT ILLNESS Ms. Valdes is a 61-year-old female who is chronically debilitated. She has multiple congenital issues which have not been tied down to a syndrome as far as the patient knows. 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 She was also born with a condition in which the right side of her body was larger than the left side of her body. She reports also developing seizure disorder and epilepsy at the age of six months and has been on treatment for this ever since. The patient over the course of her life has undergone multiple surgeries including surgeries for resection of multiple cysts and fatty tumors. She tells me in 1978 she underwent extensive resection of lipomas on her right leg. She had extensive tumors removed between the right knee and right ankle. She was also born with scoliosis and, in 1979, she underwent surgery for the scoliosis. She tells me she had Navas rods placed at that time. Unfortunately, her scoliosis became so severe it has resulted in significant restrictive chronic lung disease. The patient as a consequence to her multiple medical comorbid and congenital issues has been disabled since 1983. She had been able to live independently at home up until late January of 2017. On 02/04/2017, she fell at home while walking in her kitchen. She suffered fractures of the lumbar fourth and lumbar fifth vertebral bodies. She was recommended conservative management with physical therapy and a back brace. The patient was placed in [facility]. She told me that while at rehab she developed progressive skin breakdown along her right flank which required dressing changes and wound care. There had been intermittent bleeding from the hemangioma. The hemangioma had typically been thought to be superficial. She had been born with this. On the night of 02/04/2017, the wound for which she had been undergoing dressing began to bleed profusely and packing and padding could not control the bleeding. The patient was transferred to our facility for further workup and management. Thus far this hospitalization, CBC indicates a hemoglobin of 7 gm/dl and hematocrit of 21%, which constitutes a significant drop from hemoglobin 11 gm/dl in late January of 2017. She is also thrombocytopenic with a platelet count of 55,000. In January of 2017 she had a platelet count of 105. Her coags indicated a slight elevation in PTT, normal INR however. IMAGING STUDIES Of abdomen and pelvis dated 03/07/2017 revealed significant degenerative disease involving the vertebral bodies. She was found to have multiple cystic masses within the spleen with apparent calcifications along the rims. In the subcutaneous tissue, she was noted to have multiple varices and blood vessels. Interestingly, one of the larger varices on the right side was noted to have a thrombosis in it measuring about 4 cm. The hematology service has been asked to see her for further workup and management of the anemia and thrombocytopenia. PAST MEDICAL HISTORY 1. 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 2. Scoliosis 3. Epilepsy 4. Functional debility. 5. Large hemangiomas which have been present on her skin. 6. Hypothyroidism PAST SURGICAL HISTORY 1. Scoliosis related to surgeries and 1980, 2. Extensive resection of lipomas from her leg. SOCIAL HISTORY The patient is partnered. She previously lived at home with her significant other. She is a lifelong nondrinker, denies tobaccoism. 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 ALLERGIES ACHROMYCIN FIVE, ERYTHROMYCIN FAMILY HISTORY Father is . Mother is living. GYNECOLOGIC HISTORY 0, para 0. MEDICATIONS Current inpatient 1. Tylenol 500 mg q.4 h as needed for pain. 2. Vitamin C 500 mg p.o. b.i.d. 3. Calcium 1500 mg p.o. daily. 4. Vitamin D3 1000 units daily. 5. Vitamin B12 1000 mcg p.o. daily. 6. Colace liquid. 7. Gabapentin 100 mg p.o. t.i.d. 8. Levothyroxine 75 mcg p.o. daily. 9. Metoprolol 12.5 mg p.o. b.i.d. 10. Naloxone 0.4 mg IV as needed 11. Pantoprazole 20 mcg p.o. daily. 12. Phenobarbital 32.4 mg p.o. b.i.d. REVIEW OF SYSTEMS 13-point review of systems was obtained. The following are the pertinent positives: The patient reports having no chills or sweats or fevers. She reports her appetite is fair. HEENT: Denies headaches, blurry vision, difficulty swallowing or soreness in the throat. RESPIRATORY: She is unable to ambulate and denies being able to exert herself. She denies difficulty breathing at rest. She denies cough or hemoptysis. CARDIOVASCULAR: Denies angina-like chest pain, PND or orthopnea GI: Denies diarrhea, hematochezia, melena. : Denies dysuria, hematuria, urinary incontinence. No other complaints noted other than the bleeding and what is mentioned in the HPI. PHYSICAL EXAMINATION VITAL SIGNS: Temperature 97.1 degrees Fahrenheit, heart rate 100 beats a minute, respiratory rate 18, blood pressure 140/71, O2 sats 95% on room air. GENERAL APPEARANCE: Mrs. Valdes is a middle-aged lady. She is laying in bed and is in no acute distress. She is alert and oriented x3 and has a very pleasant disposition. HEENT: Head atraumatic, normocephalic, conjunctivae are pale, sclerae are anicteric, EOMI, PERRLA, oral exam - no pharyngeal erythema. NECK: No palpable cervical or supraclavicular lymphadenopathy. RESPIRATORY: On anterior exam she has good air movement bilaterally without any added breath sounds. CARDIOVASCULAR: Regular rate and rhythm, S1-S2 with a flow murmur without any murmurs, rubs or gallops. ABDOMEN: She has a compression dressing on. This was removed. Her abdomen is distended, tympanic to percussion, no organ enlargement noted. Over the right side of her abdomen starting in the right upper quadrant and tracing along her right abdomen and flank, she has a hemangioma. The posterior aspect of this is dressed with pads. LOWER EXTREMITIES: Left leg seems to have decreased muscle mass and tone. She maintains some range of motion at the level of the knee and of the ankle. The right leg however has significant changes. The thigh is certainly increased girth on the right as compared to left. Below the knee on the right side, she has extensive surgical changes with what appears to be skin grafting and significant muscle atrophy. Her left foot is edematous. She has decreased range of motion at the level of the right ankle. 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 LABORATORY FINDINGS Blood work dated 03/07/2017: PT 26.6, INR 1.1. CBC: WBC count 6.2, hemoglobin 7 gm/dl, hematocrit 21%, platelet count 55,000, absolute neutrophil count is 4.6. Chemistries: Sodium 141, potassium 4.2, chloride 104, bicarbonate 33, BUN 25, creatinine 0.5, EGFR is 128, calcium 7.5, folic acid 10.4, vitamin B12 level 926. IMAGING STUDIES CT of the abdomen and pelvis was reviewed and the findings are summarized in the HPI. ASSESSMENT Ms. Valdes is a 61-year-old female who presented to the hospital with acute bleeding from a wound on her right flank. She had a fall about a month ago and suffered L4 and L5 fractures. Due to the fractures, she had been in rehab and mostly in bed. While in bed, she had a lumbar and thoracic vertebral body brace on. It is thought that she may have a pressure ulcer. Interestingly, the pressure ulcer occurred on a part of her body which has a congenital hemangioma which is quite large. It is therefore prone to bleeding. Last night after undergoing a dressing change for the wound, she had significant bleeding and was sent into [facility] for further workup and management. Her hemoglobin over the past one month has decreased from 11 gm/dl down to 7 gm/dl and I suspect most of this was acute in nature. She also has worsening thrombocytopenia with a platelet count dropping from 105 down to 55 over the same time interval. The patient also has significant other medical comorbids. She seems to have some sort of a syndrome which has resulted in extensive lipomas, cystic lesions, scoliosis and hemangiomas. I am not aware of any such syndrome which describes these findings. At any rate because of her aforementioned issues, she is generally debilitated and prone to falling. The hematology service has been asked to see this patient to assist in management of her anemia, thrombocytopenia. RECOMMENDATIONS 1. Anemia: Likely secondary to acute blood loss. I will obtain serum iron studies and we will initiate her on intravenous iron empirically. 2. Thrombocytopenia: This may all be consumptive. I will review a fibrinogen level to rule out DIC and will repeat a full panel of coags tomorrow morning. 3. The hematology service will follow along with you. MD LATOYA Scott/ /6:53 PM /7:49 PM
[2017-03-07 21:08] LABS: MEAN CELL VOLUME 89.8 FL (80.0-100.0); MEAN CORPUSCULAR HEMOGLOBIN 29.7 PG (27.0-34.0); MEAN CORPUSCULAR HGB CONC 33.1 % (32.0-36.0); PLATELET COUNT 177 TH/MM3 (150-450); RED BLOOD COUNT 4.01 MIL/MM3 (4.00-5.30); REVIEW FLAG FINAL; WHITE BLOOD COUNT 11.6 TH/MM3 (4.0-11.0)
[2017-03-07] MEDS: PHENobarbital 32.4 MG TAB PO SCH (21:28)
[2017-03-07] MEDS: ASCORBIC ACID 500 MG TAB PO SCH (21:28)
[2017-03-07] MEDS ORDERED: CALCIUM CARBONATE 500 MG CHEWABLE TAB CHEW ONE (22:00)
[2017-03-07] MEDS: POLYETHYLENE GLYCOL 17 GM PKG PO SCH (22:30)
[2017-03-08] VITALS (10 sets, daily range): BP systolic 119–144; BP diastolic 58–70; PULSE 75–111; RESP 18–21; TEMP 95.7–97.7; O2SAT 94–98
[2017-03-08 01:01] LABS: TRANSFERRIN IRON PROFILE 192 MG/DL (200-360)
[2017-03-08] MEDS: ACETAMINOPHEN 500 MG CPLT PO PRN ×2 (01:06→20:59)
[2017-03-08 01:15] LABS: FERRITIN 120 NG/ML (8-252)
[2017-03-08] MEDS: LEVOTHYROXINE SODIUM 75 MCG TAB PO SCH (04:57)
[2017-03-08 07:46] LABS: AUTOMATED NEUTROPHIL # 8.9 TH/MM3 (1.8-7.7); BASOPHIL # 0.1 TH/MM3 (0-0.2); BASOPHIL % 0.5 % (0.0-2.0); EOSINOPHIL # 0.2 TH/MM3 (0-0.4); EOSINOPHIL % 1.8 % (0.0-4.0); HEMO FLAGS DIFF FINAL; LYMPHOCYTE # 1.3 TH/MM3 (1.0-4.8); MEAN CELL VOLUME 91.4 FL (80.0-100.0); MEAN CORPUSCULAR HEMOGLOBIN 30.3 PG (27.0-34.0); MEAN CORPUSCULAR HGB CONC 33.1 % (32.0-36.0); MONO % 10.1 % (0.0-8.0); NEUT % 76.6 % (16.0-70.0); PLATELET COUNT 176 TH/MM3 (150-450); RED BLOOD COUNT 3.83 MIL/MM3 (4.00-5.30); RED CELL DISTRIBUTION WIDTH 14.5 % (11.6-17.2); WHITE BLOOD COUNT 11.8 TH/MM3 (4.0-11.0)
[2017-03-08 07:48] LABS: POTASSIUM 4.4 MEQ/L (3.5-5.1)
[2017-03-08 07:49] LABS: APTT (PATIENT) 26.2 SEC (24.3-30.1)
[2017-03-08 08:11] LABS: BICARBONATE 29.6 MEQ/L (21.0-32.0)
[2017-03-08] MEDS: POLYETHYLENE GLYCOL 17 GM PKG PO SCH (09:00)
[2017-03-08] MEDS: SODIUM CHLORIDE 0.9% FLUSH 10 ML FLUSH IV FLUSH SCH ×2 (09:00→20:10)
[2017-03-08] MEDS ORDERED: MAGNESIUM CITRATE PO SCH (09:00)
[2017-03-08] MEDS: CALCIUM CARBONATE 1.25 GM (CA 500 MG) TAB PO SCH (09:26)
[2017-03-08] MEDS: PANTOPRAZOLE SOD 20 MG DELAYED RELEASE TAB PO SCH (09:26)
[2017-03-08] MEDS: CYANOCOBALAMIN 1,000 MCG TAB PO SCH (09:26)
[2017-03-08] MEDS: CHOLECALCIFEROL (VIT D3) 1000 UNIT TAB PO SCH (09:28)
[2017-03-08] MEDS: ASCORBIC ACID 500 MG TAB PO SCH ×2 (09:28→20:06)
[2017-03-08] MEDS: GABAPENTIN 100 MG CAP PO SCH ×3 (09:28→17:38)
[2017-03-08] MEDS: PHENobarbital 32.4 MG TAB PO SCH ×2 (09:29→20:06)
[2017-03-08] MEDS: METOPROLOL TARTRATE 25 MG TAB PO SCH ×2 (09:30→20:07)
[2017-03-08] MEDS ORDERED: PHENYTOIN SODIUM 100 MG CAP PO SCH ×2 (11:15→12:00)
[2017-03-08] MEDS ORDERED: LIDOCAINE HCL 1% 50 ML VIAL ONE (12:40)
--- NOTE | 2017-03-08 12:46 | HHI.PR ---
Subjective Remarks Patient seen in room in follow-up for vascular bleeding in a hemangioma. Hemoglobin now of a bladder transfusion. Patient this morning had tremendous amount of bleeding from the site and there appears to be a superficial arterial bleed. Care plan discussed with patient and mom and with Hermes JACOBO. Surgical evaluation requested. I did speak with Dr. gillespie. Objective Vitals Vital Signs Date Time Temp Pulse Resp B/P Pulse Ox O2 Delivery O2 Flow Rate FiO2 03/08/17 08:09 98 03/08/17 08:00 96.4 89 21 140/66 97 03/08/17 04:00 96.0 84 20 125/59 96 03/08/17 03:54 104 03/08/17 03:45 104 03/08/17 00:00 95.7 99 20 144/69 95 03/07/17 20:10 97 21 03/07/17 20:00 96.8 92 20 144/61 97 03/07/17 16:00 97.1 100 18 140/71 95 03/07/17 14:30 98.8 102 16 153/71 97 03/07/17 14:00 98.4 98 18 140/66 96 03/07/17 13:00 98.4 16 127/65 96 I/O 03/07/17 03/07/17 03/07/17 03/08/17 03/08/17 03/08/17 07:00 15:00 23:00 07:00 15:00 23:00 Intake Total 400 ml 1020 ml 120 ml Balance 400 ml 1020 ml 120 ml Intake Oral 400 ml 480 ml 120 ml IV Total 540 ml # Voids 3 4 # Bowel Movements 1 3 Result Diagram: 03/08/17 0653 03/08/17 0653 Objective Remarks Large right sided hemangioma with superficial ulceration and arterial bleeding requiring multiple dressings and pressure being held now GENERAL: This is a well-nourished, well-developed patient, in no apparent distress. CARDIOVASCULAR: Regular rate and rhythm without murmurs, gallops, or rubs. RESPIRATORY: Clear to auscultation. Breath sounds equal bilaterally. No wheezes , rales, or rhonchi. GASTROINTESTINAL: Abdomen soft, non-tender, nondistended. Normal active bowel sounds MUSCULOSKELETAL: Extremities without clubbing, cyanosis, or edema. NEURO: Alert & Oriented x4 to person, place, time, situation. Moves all ext x4 A/P Problem List: (1) Anemia ICD Code: D64.9 Status: Acute Plan: Likely from acute blood loss. CT abdomen and pelvis shows right sided thrombus in a varix Transfuse as needed discussed with gen surgery regarding rebleeding (2) Seizure disorder ICD Code: G40.909 Status: Acute Plan: Patient on Dilantin and phenobarbital resume dilantin (3) Hypothyroidism ICD Code: E03.9 Status: Acute Plan: Continue levothyroxine (4) Thrombocytopenia ICD Code: D69.6 Status: Acute Plan: resolved thrombocytopenia likely consumptive Problem Qualifiers (1) Anemia: Qualified Code: D64.9 - Anemia, unspecified type Yaneth Estevez MD Mar 08, 2017 12:46
[2017-03-08] MEDS: IRON SUCROSE INJ 200 MG in SODIUM CHLORIDE 0.9% INJ 100 ML IV SCH (12:51)
[2017-03-08 14:07] LABS: AUTOMATED NEUTROPHIL # 8.1 TH/MM3 (1.8-7.7); BASOPHIL # 0.1 TH/MM3 (0-0.2); BASOPHIL % 0.7 % (0.0-2.0); EOSINOPHIL # 0.2 TH/MM3 (0-0.4); EOSINOPHIL % 1.7 % (0.0-4.0); HEMATOCRIT 33.8 % (35.0-46.0); HEMO FLAGS DIFF FINAL; LYMPH % 9.9 % (9.0-44.0); LYMPHOCYTE # 1.1 TH/MM3 (1.0-4.8); MEAN CELL VOLUME 89.5 FL (80.0-100.0); MEAN CORPUSCULAR HEMOGLOBIN 29.9 PG (27.0-34.0); MEAN CORPUSCULAR HGB CONC 33.4 % (32.0-36.0); MONO % 10.3 % (0.0-8.0); NEUT % 77.4 % (16.0-70.0); PLATELET COUNT 174 TH/MM3 (150-450); RED BLOOD COUNT 3.78 MIL/MM3 (4.00-5.30); WHITE BLOOD COUNT 10.6 TH/MM3 (4.0-11.0)
[2017-03-08] MEDS: PHENYTOIN SODIUM 100 MG CAP PO SCH (20:09)
[2017-03-08 22:47] LABS: HEMATOCRIT 31.9 % (35.0-46.0); REVIEW FLAG FINAL
[2017-03-09] VITALS (15 sets, daily range): BP systolic 98–129; BP diastolic 49–79; PULSE 96–112; RESP 16–30; TEMP 97–98.6; O2SAT 95–100
--- NOTE | 2017-03-09 06:04 | MB ---
cc: CHRISTINE RODRIGUEZ DATE OF CONSULTATION: 03/08/2017 REQUESTING PHYSICIAN: Dr. Yaneth Estevez REASON FOR CONSULTATION Active hemorrhage. Patient with a wound over a large cutaneous hemangioma, right lower back. HISTORY OF PRESENT ILLNESS: The patient is a 61-year-old female who present to [facility] after bleeding from her wound from her right lower back. The patient was in a rehab facility and was using a TLSO brace which was causing abrasion and necrosis of some skin on the right lower back, over the posterior iliac spine. The patient initially underwent dressing placement with a partial dressing with complete hemostasis. The patient was admitted to medicine for further treatment and evaluation. During wound care, this area was recurrently bleed and during normal wound care this morning, this bleeding was noted and was not able to be controlled with normal maneuvers of gauze dressings and pressure. General surgery was consulted stat for evaluation of bleeding. The patient states she has had a history of bleeding from this before and has low platelets as well. The patient has no other complaints. REVIEW OF SYSTEMS: A 12 point review of systems was conducted with the patient and is negative except for the pertinent positives mentioned above in the history of present illness. PAST MEDICAL HISTORY: 1. Congenital syndrome causing asymmetry and hemangioma. 2. Post traumatic sacral lumbar fractures after a fall recently, currently in rehab as above. 3. Seizure disorder. 4. Peripheral neuropathy. 5. Hypothyroidism. 6. Scoliosis PAST SURGICAL HISTORY: Back surgery. MEDICATIONS 1. Phenytoin. 2. Protonix. 3. Iron. 4. Phenobarbital. 5. Gabapentin. 6. Metoprolol 7. Levothyroxine. ALLERGIES: ACHROMYCIN V. COCONUT ERYTHROMYCIN PEAS. FAMILY HISTORY: Noncontributory. SOCIAL HISTORY The patient relocated to a rehab in January 2017. Denies alcohol, tobacco or illicit drug use. PHYSICAL EXAMINATION Vital signs: Temperature 96.4 degrees, heart rate 80, blood pressure 140/66. The patient is a female, who appears in no acute distress. Head: Normocephalic, atraumatic. Pupils equal, round and reactive to light. Sclerae anicteric. Chest: Breath sounds present bilaterally. Nonlabored breathing pattern. Heart: Regular rate and rhythm. Abdomen: Soft, non-distended, non-tender to palpation. Right flank and buttocks with large hemangioma, changes of the skin. There is a wound over the posterior ASIS in the right lower back area that has a covering and removal of the gauze has caused some skin level bleeding with no hemorrhage. Neurologic: The patient is awake, alert, oriented x3, moving all extremities grossly equally. LABORATORY VALUES: The hemoglobin is 11.6. ASSESSMENT AND PLAN: The patient is a 61 year-old female with recurrent bleeding from the wound over skin hemangioma. This stat call was made, however, this bleeding is controlled with dressing and the patient is hemodynamically stable and the bleeding is essentially from skin bleeding with no major vessels related to the patient's hemangioma visible or bleeding. I did discuss options with the patient and the patient's primary care doctor including stitches strategically to ligate any possible vessels and to facilitate reapproximation of the skin to help with hemostasis and healing. I do not recommend complete closure of this wound as this is a chronic wound and will likely result in increased risk of infection with closure completely. However, partial closure and sutures for hemostasis will likely be beneficial. They would like to proceed with this. Will proceed with suture placement. MD MARILYN Lamb/KANWAL /11:29 PM /5:38 AM
[2017-03-09 06:09] LABS: APTT (PATIENT) 26.5 SEC (24.3-30.1); INTERNATIONAL NORMALIZED RATIO 1.1 RATIO; PROTHROMBIN TIME - PATIENT 12.1 SEC (9.8-11.6)
[2017-03-09 06:10] LABS: AUTOMATED NEUTROPHIL # 6.6 TH/MM3 (1.8-7.7); BASOPHIL # 0.1 TH/MM3 (0-0.2); BASOPHIL % 0.6 % (0.0-2.0); EOSINOPHIL # 0.4 TH/MM3 (0-0.4); EOSINOPHIL % 3.5 % (0.0-4.0); HEMATOCRIT 33.7 % (35.0-46.0); HEMO FLAGS DIFF FINAL; LYMPH % 16.7 % (9.0-44.0); LYMPHOCYTE # 1.7 TH/MM3 (1.0-4.8); MEAN CELL VOLUME 90.7 FL (80.0-100.0); MEAN CORPUSCULAR HEMOGLOBIN 29.5 PG (27.0-34.0); MEAN CORPUSCULAR HGB CONC 32.6 % (32.0-36.0); NEUT % 67.2 % (16.0-70.0); PLATELET COUNT 209 TH/MM3 (150-450); RED BLOOD COUNT 3.71 MIL/MM3 (4.00-5.30); RED CELL DISTRIBUTION WIDTH 14.1 % (11.6-17.2)
--- NOTE | 2017-03-09 08:39 | HHI.PR ---
Subjective Remarks Patient seen and evaluated today in follow-up for bleeding and her hemangioma. Overnight patient began having increased bleeding, became tachycardic and hypotensive and was transferred to the ICU. Pressure was held and dressings were applied. General surgery was contacted again regarding this and the patient is expected to be transferred to the main hospital for further treatment. Patient appears fatigued and pale this morning. Care plan discussed with FUEL CELL BINDER, patient and patient's Objective Vitals Vital Signs Date Time Temp Pulse Resp B/P Pulse Ox O2 Delivery O2 Flow Rate FiO2 03/09/17 08:00 104 20 119/56 99 03/09/17 07:50 106 26 113/58 03/09/17 07:30 98.1 106 22 03/09/17 07:00 106 22 98/79 03/09/17 06:00 97.0 112 20 104/49 97 03/09/17 06:00 112 03/09/17 04:00 03/09/17 00:00 98.0 96 16 121/55 95 03/08/17 20:30 96 21 03/08/17 20:27 97.2 111 18 132/58 94 03/08/17 16:00 97.7 98 18 127/64 98 03/08/17 12:00 96.3 85 20 129/69 97 I/O 03/08/17 03/08/17 03/08/17 03/09/17 03/09/17 03/09/17 07:00 15:00 23:00 07:00 15:00 23:00 Intake Total 120 ml Output Total 300 ml Balance 120 ml -300 ml Intake Oral 120 ml Output Urine Total 300 ml # Voids 4 2 # Bowel Movements 3 5 Result Diagram: 03/09/17 0545 03/08/17 0653 Imaging Last Impressions Abdomen/Pelvis CT 03/07/17 0000 Signed Impressions: Service Date/Time: Tuesday, March 07, 2017 15:00 - CONCLUSION: 1. There is approximate 4 cm thrombus within a large varix on the right side which is a dilated vein adjacent to the iliacus muscle emanating from the paravertebral location. 2. 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 3. Reduction in size of the cystic masses in the spleen since 2012. 4. Right pleural effusion and right lung base consolidation. Saul Marie MD Objective Remarks Large right sided hemangioma with superficial laceration and arterial bleeding requiring multiple dressings and pressure, status post sutures per general surgery yesterday GENERAL: This is a well-nourished, well-developed patient, pale CARDIOVASCULAR: Sinus tachycardia without murmurs, gallops, or rubs. RESPIRATORY: Clear to auscultation. Breath sounds equal bilaterally. No wheezes , rales, or rhonchi. GASTROINTESTINAL: Abdomen soft, non-tender, nondistended. Normal active bowel sounds MUSCULOSKELETAL: Extremities without clubbing, cyanosis, or edema. NEURO: Alert & Oriented x4 to person, place, time, situation. Moves all ext x4 A/P Problem List: (1) Anemia ICD Code: D64.9 Status: Acute Plan: Likely from acute blood loss from hemangioma bleeding. Also on IV iron ; Hematology following CT abdomen and pelvis shows right sided thrombus in a varix Transfuse as needed discussed with gen surgery (Dr. Espino) regarding rebleeding, will transfer to [facility] (2) Seizure disorder ICD Code: G40.909 Status: Chronic Plan: Patient on Dilantin and phenobarbital stable, no seizures (3) Hypothyroidism ICD Code: E03.9 Status: Chronic Plan: Continue levothyroxine (4) Thrombocytopenia ICD Code: D69.6 Status: Acute Plan: resolved thrombocytopenia likely consumptive (5) Diarrhea ICD Code: R19.7 Status: Acute Plan: Patient with poor functional ambulatory status with chronic constipation. Diarrhea may be due to bowel regimen Patient with previous hospitalizations and risks for C. difficile which is pending No leukocytosis Problem Qualifiers (1) Anemia: Qualified Code: D64.9 - Anemia, unspecified type Yaneth Estevez MD Mar 09, 2017 08:39
[2017-03-09] MEDS ORDERED: PHENYTOIN SODIUM 100 MG CAP PO SCH (10:00)
[2017-03-09] MEDS: PHENYTOIN SODIUM 100 MG CAP PO SCH ×3 (10:00→17:11)
[2017-03-09] MEDS: CYANOCOBALAMIN 1,000 MCG TAB PO SCH (10:58)
[2017-03-09] MEDS: LEVOTHYROXINE SODIUM 75 MCG TAB PO SCH (10:58)
[2017-03-09 11:06] LABS: HEMATOCRIT 32.1 % (35.0-46.0); REVIEW FLAG FINAL
[2017-03-09] MEDS: IRON SUCROSE INJ 200 MG in SODIUM CHLORIDE 0.9% INJ 100 ML IV SCH (11:39)
[2017-03-09] MEDS: SODIUM CHLORIDE 0.9% FLUSH 10 ML FLUSH IV FLUSH SCH ×2 (11:39→20:46)
[2017-03-09] MEDS: GABAPENTIN 100 MG CAP PO SCH ×3 (11:40→16:59)
[2017-03-09] MEDS: PHENobarbital 32.4 MG TAB PO SCH ×2 (11:40→20:09)
[2017-03-09] MEDS: CALCIUM CARBONATE 1.25 GM (CA 500 MG) TAB PO SCH (11:40)
[2017-03-09] MEDS: PANTOPRAZOLE SOD 20 MG DELAYED RELEASE TAB PO SCH (11:41)
[2017-03-09] MEDS: ASCORBIC ACID 500 MG TAB PO SCH ×2 (11:41→20:09)
[2017-03-09] MEDS: CHOLECALCIFEROL (VIT D3) 1000 UNIT TAB PO SCH (11:41)
[2017-03-09] MEDS: BACITRACIN TOP OINT 15 GM TUBE TOPICAL SCH ×2 (11:42→21:00)
--- NOTE | 2017-03-09 11:59 | PD.CONS ---
[facility] Service Critical Care Medicine Consult Requested By Dr. Estevez Reason for Consult Hypotension tachycardia Early hemorrhagic shock Primary Care Physician Ketan David, DO History of Present Illness The patient is a 61-year-old female who was admitted to hospital service on 03/07 with bleeding from her wound on right flank and back hemangioma. Patient has a history of Klippel-Trenaunay syndrome, seizure disorder and was in a rehab facility and using a TLSO brace. The brace had caused abrasion and necrosis of hemangioma. Initially bleeding was controlled by dressing, but yesterday developed significant bleeding and General surgery was consulted. Dr. Clemente was able to place sutures at the bleeding site which controlled bleeding temporarily. Today's patient started rebleeding from the site which caused hypotension and tachycardia. Patient was given 2 units of PRBC transfusion and was transferred to [facility] for possible surgical evaluation and/or intervention. I evaluated the patient in the ICU. She had already received 2 units of blood on the blood pressure has improved but remains tachycardic. A stat H&H is pending at this time. A call had been made to Dr. Espino we will see the patient soon. 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 Seizure disorder Peripheral neuropathy Hypothyroidism Scoliosis Past Surgical History Post traumatic sacral fracture and lumbar fracture Back surgery for scoliosis Cataracts Ear surgery Reported Medications Acetaminophen (Acetaminophen) 325 Mg Tab 650 Mg PO Q4H PRN Senna-Plus (Sennosides-Docusate Sodium) 8.6-50 Mg Tab 2 Tab PO DAILY Polyethylene Glycol 3350 Powder (Polyethylene Glycol) 17 Gm Pow 17 Gm PO DAILY Lopressor (Metoprolol Tartrate) 50 Mg Tab 12.5 Mg PO BID Vitamin C (Ascorbic Acid) 250 Mg Chew 500 Mg CHEW BID Magnesium Citrate 100 Mg Tab 296 Ml PO DAILY Omeprazole 20 Mg Tab 20 Mg PO DAILY Vitamin B-12 (Cyanocobalamin) 1,000 Mcg Tab 1,000 Mcg PO DAILY Mobic (Meloxicam) 7.5 Mg Tab 7.5 Mg PO DAILY Neurontin (Gabapentin) 100 Mg Cap 100 Mg PO TID Dilantin (Phenytoin Extended) 100 Mg Cap 200 Mg PO DAILY Phenobarbital 30 Mg Tab 30 Mg PO BID Multiple Vitamin 1 Tab 1 Tab PO DAILY Calcium Carbonate 1,500 Mg Tab 1,500 Mg PO DAILY Stool Softener Extra Strength (Docusate Sodium) 250 Mg Cap 250 Mg PO DAILY PRN Vitamin D3 (Cholecalciferol) 1,000 Unit Cap 1,000 Units PO DAILY Fosamax (Alendronate Sodium) 70 Mg Tab 70 Mg PO Q7D Dilantin (Phenytoin Extended) 100 Mg Cap 300 Mg PO BID Levothyroxine (Levothyroxine Sodium) 75 Mcg Tab 75 Mcg PO DAILY Active Ordered Medications Reviewed Family History Mother has Hypertension Social History No tobacco or alcohol dependency Physical Exam Vital Signs Vital Signs Date Time Temp Pulse Resp B/P Pulse Ox O2 Delivery O2 Flow Rate FiO2 03/09/17 08:00 104 20 119/56 99 03/09/17 07:50 106 26 113/58 03/09/17 07:30 98.1 106 22 03/09/17 07:00 106 22 98/79 03/09/17 06:00 97.0 112 20 104/49 97 03/09/17 06:00 112 03/09/17 04:00 03/09/17 00:00 98.0 96 16 121/55 95 03/08/17 20:30 96 21 03/08/17 20:27 97.2 111 18 132/58 94 03/08/17 16:00 97.7 98 18 127/64 98 03/08/17 12:00 96.3 85 20 129/69 97 Physical Exam GENERAL: This is a well-nourished, well-developed patient, appears ill SKIN: large right sided hemangioma with areas of bleeding-see abdominal exam HEAD: Klippel-Trenaunay syndrome with obvious facial asymmetry EYES: Pupils equal round and reactive. ENT:Uvula midline. Airway patent. NECK: Trachea midline. No JVD or lymphadenopathy. Supple, nontender, no meningeal signs. CARDIOVASCULAR: Tachycardic rate and rhythm without murmurs, gallops, or rubs. RESPIRATORY: Clear to auscultation. Breath sounds equal bilaterally. No wheezes , rales, or rhonchi. GASTROINTESTINAL: Abdomen soft, non-tender, nondistended. Large hemangioma occupying Right flank and buttocks with active superficial bleeding from lower flank region. MUSCULOSKELETAL: Right lower extremity is deformed from multiple surgeries for fatty tumors NEUROLOGICAL: Awake and alert. Motor and sensory grossly within normal limits. Laboratory Laboratory Tests Test 03/08/17 03/08/17 03/09/17 03/09/17 13:44 22:26 05:45 09:47 White Blood Count 10.6 10.0 Red Blood Count 3.78 3.71 Hemoglobin 11.3 10.5 11.0 Hematocrit 33.8 31.9 33.7 Mean Corpuscular Volume 89.5 90.7 Mean Corpuscular Hemoglobin 29.9 29.5 Mean Corpuscular Hemoglobin 33.4 32.6 Concent Red Cell Distribution Width 14.0 14.1 Platelet Count 174 209 Mean Platelet Volume 8.0 7.3 Neutrophils (%) (Auto) 77.4 67.2 Lymphocytes (%) (Auto) 9.9 16.7 Monocytes (%) (Auto) 10.3 12.0 Eosinophils (%) (Auto) 1.7 3.5 Basophils (%) (Auto) 0.7 0.6 Neutrophils # (Auto) 8.1 6.6 Lymphocytes # (Auto) 1.1 1.7 Monocytes # (Auto) 1.1 1.2 Eosinophils # (Auto) 0.2 0.4 Basophils # (Auto) 0.1 0.1 CBC Comment DIFF FINAL DIFF FINAL Differential Comment Prothrombin Time 12.1 Prothromb Time International 1.1 Ratio Activated Partial 26.5 Thromboplast Time Blood Type AB POSITIVE Crossmatch Leukocyte-Reduced Red Blood Cells Blood Bank Comment Test 03/09/17 10:30 Hemoglobin 10.8 Hematocrit 32.1 Result Diagram: 03/09/17 1030 03/08/17 0653 Imaging Reviewed Assessment and Plan Assessment and Plan NEURO: Seizure disorder - Continue home dose of phenobarbital, Dilantin and Neurontin - Patient states no seizures for several years RESP: - Nasal cannula oxygen as needed. DuoNeb when necessary CV: Hypotension/early hemorrhagic shock Tachycardia - Normal saline IV fluids 1L bolus and 125 ml per hour - Transfuse 2 units PRBC GI: - Nothing by mouth, regular diet after cleared by Dr. Espino : - Monitor renal function closely. Place Wright catheter if needed ID: - Monitor for infection HEME: Early hemorrhagic shock - Monitor CBC, CMP, coags - Received 2 units PRBC with improvement in blood pressure SKIN: Large cutaneous hemangioma with active bleeding - Transfuse PRBC as needed - Dr. Espino consulted for surgical management ENDO: - Electrolyte replacement per protocol as needed PROPH: - Bilateral lower extremity SCDs. Avoid chemical DVT prophylaxis due to active bleeding LINES: - Utilize peripheral IVs, central line if needed Level 3 new consult Rik Green MD Mar 09, 2017 11:59
[2017-03-09] MEDS: ACETAMINOPHEN 500 MG CPLT PO PRN ×2 (14:51→22:14)
[2017-03-09] MEDS ORDERED: FOSPHENYTOIN INJ 1,000 MGPE in SODIUM CHLORIDE 0.9% INJ 50 ML IV ONE (20:00)
--- NOTE | 2017-03-09 22:34 | MP ---
cc: CHRISTINE RODRIGUEZ DATE OF SURGERY 03/08/2017 PREOPERATIVE DIAGNOSIS Bleeding from skin and subcutaneous wound over hemangioma changes of the skin. POSTOPERATIVE DIAGNOSIS Bleeding from skin and subcutaneous wound over hemangioma changes of the skin. PROCEDURE Partial closure of wound 1 cm x 6 cm for hemostasis. ANESTHESIA local anesthesia with 1% lidocaine without epinephrine. ATTENDING SURGEON Christine Rodriguez MD DRAIN CLEANER None. BLOOD LOSS 25 mL COMPLICATIONS None. FINDINGS Complete hemostasis with suture placement. INDICATIONS FOR PROCEDURE The patient is a 61-year-old female who has recurrent bleeding from a right lower back wound had an area of hemangioma. PROCEDURE After verbal consent was obtained from the patient, the area of the wound was prepped and anesthetized with 4% lidocaine. 2-0 Vicryl running stitch was placed in a 1 cm x 6 cm wound with deep sutures laterally through the skin as well as through the subcutaneous tissue. These were pulled tight until the wound was nearly approximated but not completely approximated in order to facilitate wound drainage and to prevent infection. Once this suture was placed this was tied to itself and the wound was reapproximated very loosely with some tension on the surrounding skin. This gave us complete hemostasis over the small amount of bleeding that was coming from the wound and the hemangioma area of the skin. We irrigated this off and placed a nonstick occlusive dressing. The patient tolerated the procedure well. No apparent complications. I was present and scrubbed throughout the entire procedure. Christine Rodriguez MD AWG/KK /11:39 PM /10:22 PM MTDAleta
[2017-03-10] VITALS (13 sets, daily range): BP systolic 107–131; BP diastolic 53–83; PULSE 74–105; RESP 16–28; TEMP 97.9–98.4; O2SAT 96–100
[2017-03-10 04:50] LABS: AUTOMATED NEUTROPHIL # 4.9 TH/MM3 (1.8-7.7); BASOPHIL % 0.6 % (0.0-2.0); EOSINOPHIL # 0.1 TH/MM3 (0-0.4); EOSINOPHIL % 1.7 % (0.0-4.0); HEMO FLAGS DIFF FINAL; LYMPH % 11.9 % (9.0-44.0); LYMPHOCYTE # 0.8 TH/MM3 (1.0-4.8); MEAN CELL VOLUME 90.8 FL (80.0-100.0); MEAN CORPUSCULAR HEMOGLOBIN 31.6 PG (27.0-34.0); MEAN CORPUSCULAR HGB CONC 34.8 % (32.0-36.0); MONO % 15.4 % (0.0-8.0); NEUT % 70.4 % (16.0-70.0); PLATELET COUNT 132 TH/MM3 (150-450); RED BLOOD COUNT 2.53 MIL/MM3 (4.00-5.30); RED CELL DISTRIBUTION WIDTH 14.8 % (11.6-17.2); WHITE BLOOD COUNT 6.9 TH/MM3 (4.0-11.0)
[2017-03-10 05:23] LABS: BICARBONATE 27.3 MEQ/L (21.0-32.0); CALCIUM-PROTEIN CORRECTED 8.5 MG/DL (8.5-10.1); POTASSIUM 4.2 MEQ/L (3.5-5.1); TOTAL BILIRUBIN ADULT 0.4 MG/DL (0.2-1.0)
[2017-03-10] MEDS: LEVOTHYROXINE SODIUM 75 MCG TAB PO SCH (05:40)
[2017-03-10] MEDS: ACETAMINOPHEN 500 MG CPLT PO PRN ×2 (05:49→18:26)
[2017-03-10] MEDS: IRON SUCROSE INJ 200 MG in SODIUM CHLORIDE 0.9% INJ 100 ML IV SCH (07:56)
[2017-03-10] MEDS: GABAPENTIN 100 MG CAP PO SCH ×3 (07:56→18:26)
[2017-03-10] MEDS: CYANOCOBALAMIN 1,000 MCG TAB PO SCH (07:57)
[2017-03-10] MEDS: PANTOPRAZOLE SOD 20 MG DELAYED RELEASE TAB PO SCH (07:57)
[2017-03-10] MEDS: ASCORBIC ACID 500 MG TAB PO SCH ×2 (07:57→21:58)
[2017-03-10] MEDS: PHENobarbital 32.4 MG TAB PO SCH ×2 (07:57→21:58)
[2017-03-10] MEDS: CHOLECALCIFEROL (VIT D3) 1000 UNIT TAB PO SCH (07:58)
[2017-03-10] MEDS: PHENYTOIN SODIUM 100 MG CAP PO SCH ×2 (07:58→18:26)
[2017-03-10] MEDS: BACITRACIN TOP OINT 15 GM TUBE TOPICAL SCH ×2 (07:58→21:00)
[2017-03-10] MEDS: CALCIUM CARBONATE 1.25 GM (CA 500 MG) TAB PO SCH (07:58)
[2017-03-10] MEDS: SODIUM CHLORIDE 0.9% FLUSH 10 ML FLUSH IV FLUSH SCH ×2 (07:59→21:58)
--- NOTE | 2017-03-10 08:43 | HHI.PR ---
Subjective Remarks Follow up anemia. Patient states that she feels better today. Denies chest pain , dyspnea. No apparent bleeding overnight. Objective Vitals Vital Signs Date Time Temp Pulse Resp B/P Pulse Ox O2 Delivery O2 Flow Rate FiO2 03/10/17 06:00 92 03/10/17 04:00 89 03/10/17 04:00 89 16 126/58 100 03/10/17 02:00 94 03/10/17 00:00 98.0 98 27 111/83 97 03/10/17 00:00 98 03/09/17 22:00 104 03/09/17 20:00 98.4 103 28 119/55 95 03/09/17 20:00 103 03/09/17 20:00 95 Room Air 03/09/17 19:45 100 Nasal Cannula 3.00 03/09/17 19:00 100 Nasal Cannula 3.00 03/09/17 18:00 98 03/09/17 16:00 98.4 100 28 129/63 97 03/09/17 16:00 100 03/09/17 15:32 98 21 03/09/17 14:00 102 03/09/17 12:00 102 03/09/17 12:00 98.6 102 30 126/53 97 03/09/17 10:00 108 I/O 03/09/17 03/09/17 03/09/17 03/10/17 03/10/17 03/10/17 07:00 15:00 23:00 07:00 15:00 23:00 Intake Total 1342 ml 2656 ml Balance 1342 ml 2656 ml Intake Oral 380 ml 600 ml IV Total 962 ml 2056 ml # Voids 1 2 # Bowel Movements 0 0 Result Diagram: 03/10/17 0429 03/10/17 0429 Imaging Last Impressions Abdomen/Pelvis CT 03/07/17 0000 Signed Impressions: Service Date/Time: Tuesday, March 07, 2017 15:00 - CONCLUSION: 1. There is approximate 4 cm thrombus within a large varix on the right side which is a dilated vein adjacent to the iliacus muscle emanating from the paravertebral location. 2. 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 3. Reduction in size of the cystic masses in the spleen since 2012. 4. Right pleural effusion and right lung base consolidation. K. Kenney Marie MD Objective Remarks General: No acute distress. Heart: Regular rate and rhythm. No murmur. Lungs: Clear to auscultation bilaterally. No wheezes, rales, or rhonchi. Breathing is nonlabored. Abdomen: Soft, nontender, mildly distended. Wound bandaged. Extremities: No lower extremity edema. SCDs. Psych: Alert and oriented. Procedures 03/08/17 partial closure of wound for hemostasis Urinary Catheter: No Vascular Central Line Catheter: No A/P Problem List: (1) Anemia ICD Code: D64.9 Status: Acute (2) Seizure disorder ICD Code: G40.909 Status: Chronic (3) Hypothyroidism ICD Code: E03.9 Status: Chronic (4) Thrombocytopenia ICD Code: D69.6 Status: Acute (5) Diarrhea ICD Code: R19.7 Status: Acute Assessment and Plan 1. Anemia secondary to acute blood loss: Hemoglobin trending down again. Has received 2 units PRBCs. Repeat hemoglobin at 10:00. Transfuse if necessary. If hemoglobin continues to decrease, may consider repeat abdominal CT. Appreciate hematology recommendations. IV iron ordered. 2. Large continues hemangioma: This is the source of bleeding. Status post closure by general surgery. No active bleeding reported overnight by nursing. 3. Hypotension, early hemorrhagic shock, tachycardia: Vital signs stable this morning. Continue IV fluids. 4. Seizure disorder: Continue phenobarbital, Dilantin, Neurontin. Check serum Dilantin level. 5. Hypothyroidism: Continue levothyroxine. 6. Thrombocytopenia: Likely consumptive. Appreciate hematology recommendations. 7. Diarrhea: Resolved. C. difficile testing was ordered, but patient has not had any further bowel movements. 8. DVT prophylaxis: SCDs. Avoid chemical prophylaxis secondary to bleeding, anemia. Problem Qualifiers (1) Anemia: Qualified Code: D62 - Acute posthemorrhagic anemia Joe Chowdhury MD Mar 10, 2017 08:43
--- NOTE | 2017-03-10 10:32 | PD.ONC.PN ---
Subjective Subjective Remarks Afebrile overnight. Patient resting in bed in nad. tired of being stuck so often. Denies any obvious bleeding. Objective Data Date Time Temp Pulse Resp B/P Pulse Ox O2 Delivery O2 Flow Rate FiO2 03/10/17 08:00 94 03/10/17 08:00 97.9 96 24 118/56 99 03/10/17 06:00 92 03/10/17 04:00 89 03/10/17 04:00 89 16 126/58 100 03/10/17 02:00 94 03/10/17 00:00 98.0 98 27 111/83 97 03/10/17 00:00 98 03/09/17 22:00 104 03/09/17 20:00 98.4 103 28 119/55 95 03/09/17 20:00 103 03/09/17 20:00 95 Room Air 03/09/17 19:45 100 Nasal Cannula 3.00 03/09/17 19:00 100 Nasal Cannula 3.00 03/09/17 18:00 98 03/09/17 16:00 98.4 100 28 129/63 97 03/09/17 16:00 100 03/09/17 15:32 98 21 03/09/17 14:00 102 03/09/17 12:00 102 03/09/17 12:00 98.6 102 30 126/53 97 Result Diagram: 03/10/17 0429 03/10/17 0429 Laboratory Results Laboratory Tests Test 03/09/17 03/09/17 03/09/17 03/10/17 10:30 14:55 18:59 04:29 Hemoglobin 10.8 GM/DL 9.7 GM/DL 8.0 GM/DL Hematocrit 32.1 % 23.0 % Nasal Screen MRSA (PCR) MRSA DETECTED Phenytoin (Dilantin) Level 5.1 MCG/ML White Blood Count 6.9 TH/MM3 Red Blood Count 2.53 MIL/MM3 Mean Corpuscular Volume 90.8 FL Mean Corpuscular Hemoglobin 31.6 PG Mean Corpuscular Hemoglobin 34.8 % Concent Red Cell Distribution Width 14.8 % Platelet Count 132 TH/MM3 Mean Platelet Volume 7.8 FL Neutrophils (%) (Auto) 70.4 % Lymphocytes (%) (Auto) 11.9 % Monocytes (%) (Auto) 15.4 % Eosinophils (%) (Auto) 1.7 % Basophils (%) (Auto) 0.6 % Neutrophils # (Auto) 4.9 TH/MM3 Lymphocytes # (Auto) 0.8 TH/MM3 Monocytes # (Auto) 1.1 TH/MM3 Eosinophils # (Auto) 0.1 TH/MM3 Basophils # (Auto) 0.0 TH/MM3 CBC Comment DIFF FINAL Differential Comment Sodium Level 140 MEQ/L Potassium Level 4.2 MEQ/L Chloride Level 105 MEQ/L Carbon Dioxide Level 27.3 MEQ/L Anion Gap 8 MEQ/L Blood Urea Nitrogen 12 MG/DL Creatinine 0.45 MG/DL Estimat Glomerular Filtration 142 ML/MIN Rate Random Glucose 94 MG/DL Calcium Level 7.4 MG/DL Protein Corrected Calcium 8.5 MG/DL Magnesium Level 2.0 MG/DL Total Bilirubin 0.4 MG/DL Aspartate Amino Transf 20 U/L (AST/SGOT) Alanine Aminotransferase 16 U/L (ALT/SGPT) Alkaline Phosphatase 118 U/L Total Protein 5.1 GM/DL Albumin 2.3 GM/DL Administered Medications Medications (Trade) Dose Ordered Sig/Ivette Route PRN Reason Start Time Stop Time Status Last Admin Dose Admin Sodium Chloride (NS Flush) 2 ml BID IV FLUSH 03/07/17 09:00 03/10/17 07:59 Acetaminophen (Tylenol) 500 mg Q4H PRN PO pain 03/07/17 11:15 03/10/17 05:49 Calcium Carbonate (Oscal) 1,500 mg DAILY PO 03/07/17 12:00 03/10/17 07:58 Cholecalciferol (Vitamin D3) 1,000 units DAILY PO 03/07/17 12:00 03/10/17 07:58 Cyanocobalamin (Vitamin B12) 1,000 mcg DAILY PO 03/07/17 12:00 03/10/17 07:57 Gabapentin (Neurontin) 100 mg TID PO 03/07/17 13:00 03/10/17 07:56 Levothyroxine Sodium (Synthroid) 75 mcg DAILY@06 PO 03/07/17 11:30 03/10/17 05:40 Metoprolol Tartrate (Lopressor) 12.5 mg BID PO 03/07/17 12:00 Hold 03/08/17 20:07 Ascorbic Acid (Vitamin C) 500 mg BID PO 03/07/17 21:00 03/10/17 07:57 Docusate Sodium (Colace Liq) 250 mg DAILY PRN PO CONSTIPATION 03/07/17 12:00 03/07/17 12:23 Pantoprazole Sodium (Protonix) 20 mg DAILY PO 03/08/17 09:00 03/10/17 07:57 Phenobarbital (PHENobarbital) 32.4 mg BID PO 03/07/17 21:00 03/10/17 07:57 Polyethylene Glycol (Miralax) 17 gm DAILY PO 03/07/17 22:00 Hold 03/07/17 22:30 Bacitracin (Baciguent Oint) 1 applic Q12HR TOPICAL 03/09/17 09:00 03/10/17 07:58 Phenytoin (Dilantin) 300 mg BIDPC PO 03/09/17 10:00 03/10/17 07:58 Objective Remarks GENERAL: pleasant chronically ill female upright in bed in [facility]. SKIN: Warm and dry. HEAD: Normocephalic. EYES: no injection or drainage. NECK: Supple, trachea midline. CARDIOVASCULAR: Regular rate and rhythm RESPIRATORY: Breath sounds equal bilaterally. No accessory muscle use. GASTROINTESTINAL: Abdomen mildly distended abdominal binder in place. bandages in place, are c/d/i. EXTREMITIES: No cyanosis, or edema. NEUROLOGICAL: awake and alert, normal speech. oriented and appropriate. able to move extremities. Assessment/Plan Assessment 61y/o with Anemia and thrombocytopenia secondary to acute blood loss from a large hemangioma associated with subcutaneous varices along the right flank and right lumbar area. 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 Scoliosis Epilepsy Functional debility. Large hemangiomas which have been present on her skin. Hypothyroidism Plan 1. Anemia: Likely secondary to acute blood loss. s/p IV iron x 3 bags. B12 WNL. monitor and transfuse as needed. repeat H/H this afternoon. may need repeat CT to assess bleeding. 2. Thrombocytopenia: secondary to bleeding/consumption. improved but in the last 24 hours has dropped again somewhat. I suspect she may be bleeding again. will await repeat H/H, repeat CT. Nicky Villar Mar 10, 2017 10:32
[2017-03-10 12:29] LABS: C. DIFF EPI 027 PRESUMPTIVE NEGATIVE (NEGATIVE)
[2017-03-10 13:43] LABS: C. DIFF TOXIN PCR POSITIVE (NEGATIVE)
[2017-03-10 15:16] LABS: HEMATOCRIT 21.4 % (35.0-46.0); REVIEW FLAG FINAL
--- NOTE | 2017-03-10 17:04 | HHI.PR ---
Subjective Subjective Notes Resting in bed No issues ODALIS Kumar at bedside No signs of bleeding today VSS Objective Vitals/I&O Vital Signs Date Time Temp Pulse Resp B/P Pulse Ox O2 Delivery O2 Flow Rate FiO2 03/10/17 16:00 98.4 95 24 107/53 100 03/09/17 20:00 Room Air 03/09/17 19:45 3.00 03/09/17 15:32 21 Labs Laboratory Tests Test 03/09/17 03/10/17 03/10/17 03/10/17 18:59 04:29 11:15 12:00 Hemoglobin 9.7 8.0 Phenytoin (Dilantin) Level 5.1 15.3 White Blood Count 6.9 Red Blood Count 2.53 Hematocrit 23.0 Mean Corpuscular Volume 90.8 Mean Corpuscular Hemoglobin 31.6 Mean Corpuscular Hemoglobin 34.8 Concent Red Cell Distribution Width 14.8 Platelet Count 132 Mean Platelet Volume 7.8 Neutrophils (%) (Auto) 70.4 Lymphocytes (%) (Auto) 11.9 Monocytes (%) (Auto) 15.4 Eosinophils (%) (Auto) 1.7 Basophils (%) (Auto) 0.6 Neutrophils # (Auto) 4.9 Lymphocytes # (Auto) 0.8 Monocytes # (Auto) 1.1 Eosinophils # (Auto) 0.1 Basophils # (Auto) 0.0 CBC Comment DIFF FINAL Differential Comment Sodium Level 140 Potassium Level 4.2 Chloride Level 105 Carbon Dioxide Level 27.3 Anion Gap 8 Blood Urea Nitrogen 12 Creatinine 0.45 Estimat Glomerular Filtration 142 Rate Random Glucose 94 Calcium Level 7.4 Protein Corrected Calcium 8.5 Magnesium Level 2.0 Total Bilirubin 0.4 Aspartate Amino Transf 20 (AST/SGOT) Alanine Aminotransferase 16 (ALT/SGPT) Alkaline Phosphatase 118 Total Protein 5.1 Albumin 2.3 Stool C. difficile Toxin (PCR) POSITIVE Stl C. difficile Toxin PRESUMPTIVE Epiderm 027 NEGATIVE Test 03/10/17 14:46 Hemoglobin 7.4 Hematocrit 21.4 Cardiovascular: Regular Lungs: Clear Abdomen: Other (large cutaneous hemangioma----s/p partial closure ---dressing removed and no bleeding visualed ) Extremities: No edema A/P Assessment and Plan 61 year old female with large cutaneous hemangioma s/p partial closure for hemostasis -Recheck hmg this afternoon -No signs of bleeding and VSS (no hypotension or tachycardia) -Continue to monitor clinically and labs -Discussed with Niecy Bernabe Mar 10, 2017 17:04
[2017-03-10] MEDS ORDERED: IOHEXOL 350 MG/ML 10 ML VIAL (for RAD DIAG) IV ONE (17:17)
--- NOTE | 2017-03-10 17:31 | RADRPT ---
EXAM DATE/TIME: 03/10/2017 16:59 [facility] COMPARISON: CT PELVIS W/O CONTRAST, February 04, 2017, 15:04. CT ABDOMEN & PELVIS W CONTRAST, February 18, 2013, 18:36. CT ABDOMEN & PELVIS W CONTRAST, March 07, 2017, 15:00. INDICATIONS : Right flank hemangioma with bleeding. IV CONTRAST: 100 cc Omnipaque 350 (iohexol) IV ORAL CONTRAST: No oral contrast ingested. RADIATION DOSE: 9.96 CTDIvol (mGy) MEDICAL HISTORY : Cardiovascular disease. Hypertension. SURGICAL HISTORY : None. ENCOUNTER: Initial ACUITY: 1 day PAIN SCALE: 4/10 LOCATION: Bilateral abdomen. TECHNIQUE: Volumetric scanning of the abdomen and pelvis was performed. Using automated exposure control and ad justment of the mA and/or kV according to patient size, radiation dose was kept as low as reasonably achievable to obtain optimal diagnostic quality images. DICOM format image data is available electro nically for review and comparison. FINDINGS: CT Abdomen: Again noted are multiple lesions in the spleen not changed in addition to thrombosed larg e collateral blood vessels adjacent to the iliacus muscle on the right side. The right pelvic muscula ture appear larger compared to the left side probably engorged related to extensive varices as descri bed previously and not changed. There is no evidence for hematoma. Moderate right pleural effusion is present with small left pleural effusion and there is also consolidation in both lung bases worse on the right. The rest of the examination has not significantly changed. CONCLUSION: Small left pleural effusion not present previously otherwise not significantly change d and right pelvic musculature and flank area appear larger compared to left side not significantly c hanged probably engorged related to previously described large collateral varices one of which is thr ombosed adjacent to the right iliacus muscle. Saul Marie MD on March 10, 2017 at 17:24 Board Certified Radiologist. This report was verified electronically.
[2017-03-10] MEDS: metroNIDAZOLE 500 MG TAB PO SCH ×2 (18:26→23:29)
[2017-03-10 22:05] LABS: HEMATOCRIT 23.1 % (35.0-46.0); REVIEW FLAG FINAL
[2017-03-11] VITALS (14 sets, daily range): BP systolic 106–135; BP diastolic 51–71; PULSE 84–102; RESP 19–29; TEMP 97.4–98.8; O2SAT 94–100
[2017-03-11] MEDS: ACETAMINOPHEN 500 MG CPLT PO PRN ×2 (00:58→19:40)
[2017-03-11 01:12] LABS: HEMATOCRIT 21.9 % (35.0-46.0); REVIEW FLAG FINAL
[2017-03-11 04:39] LABS: HEMATOCRIT 22.6 % (35.0-46.0); REVIEW FLAG FINAL
[2017-03-11] MEDS: LEVOTHYROXINE SODIUM 75 MCG TAB PO SCH (05:42)
[2017-03-11] MEDS: metroNIDAZOLE 500 MG TAB PO SCH ×3 (05:42→17:52)
--- NOTE | 2017-03-11 07:34 | PD.ONC.PN ---
Subjective Subjective Remarks Patient seen and examined, vital signs, labs, medications and events over the weekend reviewed. Additionally CT scan dated 03/10/2017 was reviewed, C. difficile positive status also noted. Subjectively: Patient reports feeling tired, she tells me she has been having diarrhea overnight. She tells me her dressings were changed last evening and she notices no blood active bleeding at this time, the dressing overlies the right flank. Objective Data Date Time Temp Pulse Resp B/P Pulse Ox O2 Delivery O2 Flow Rate FiO2 03/11/17 06:00 84 03/11/17 04:00 90 03/11/17 04:00 97.4 90 19 106/51 100 03/11/17 02:00 86 03/11/17 01:58 18 03/11/17 00:00 100 03/11/17 00:00 98.0 100 28 114/55 100 03/10/17 22:00 96 03/10/17 20:00 98.4 105 28 131/58 96 03/10/17 20:00 105 03/10/17 19:22 97 21 03/10/17 18:00 103 03/10/17 16:00 98.4 95 24 107/53 100 03/10/17 16:00 95 03/10/17 14:00 97 03/10/17 12:00 89 03/10/17 12:00 98.2 90 23 113/54 100 03/10/17 10:00 74 03/10/17 08:00 94 03/10/17 08:00 97.9 96 24 118/56 99 03/11/17 03/11/17 03/11/17 07:00 15:00 23:00 Intake Total 1433 ml Balance 1433 ml Result Diagram: 03/11/17 0359 03/10/17 0429 Laboratory Results Laboratory Tests Test 03/10/17 03/10/17 03/10/17 03/10/17 11:15 12:00 14:46 21:29 Stool C. difficile Toxin (PCR) POSITIVE Stl C. difficile Toxin PRESUMPTIVE Epiderm 027 NEGATIVE Phenytoin (Dilantin) Level 15.3 MCG/ML Hemoglobin 7.4 GM/DL 7.9 GM/DL Hematocrit 21.4 % 23.1 % Test 03/11/17 03/11/17 00:43 03:59 Hemoglobin 7.2 GM/DL 7.5 GM/DL Hematocrit 21.9 % 22.6 % Administered Medications Medications (Trade) Dose Ordered Sig/Ivette Route PRN Reason Start Time Stop Time Status Last Admin Dose Admin Sodium Chloride (NS Flush) 2 ml BID IV FLUSH 03/07/17 09:00 03/10/17 21:58 Acetaminophen (Tylenol) 500 mg Q4H PRN PO pain 03/07/17 11:15 03/11/17 00:58 Calcium Carbonate (Oscal) 1,500 mg DAILY PO 03/07/17 12:00 03/10/17 07:58 Cholecalciferol (Vitamin D3) 1,000 units DAILY PO 03/07/17 12:00 03/10/17 07:58 Cyanocobalamin (Vitamin B12) 1,000 mcg DAILY PO 03/07/17 12:00 03/10/17 07:57 Gabapentin (Neurontin) 100 mg TID PO 03/07/17 13:00 03/10/17 18:26 Levothyroxine Sodium (Synthroid) 75 mcg DAILY@06 PO 03/07/17 11:30 03/11/17 05:42 Metoprolol Tartrate (Lopressor) 12.5 mg BID PO 03/07/17 12:00 Hold 03/08/17 20:07 Ascorbic Acid (Vitamin C) 500 mg BID PO 03/07/17 21:00 03/10/17 21:58 Docusate Sodium (Colace Liq) 250 mg DAILY PRN PO CONSTIPATION 03/07/17 12:00 03/07/17 12:23 Pantoprazole Sodium (Protonix) 20 mg DAILY PO 03/08/17 09:00 03/10/17 07:57 Phenobarbital (PHENobarbital) 32.4 mg BID PO 03/07/17 21:00 03/10/17 21:58 Polyethylene Glycol (Miralax) 17 gm DAILY PO 03/07/17 22:00 Hold 03/07/17 22:30 Bacitracin (Baciguent Oint) 1 applic Q12HR TOPICAL 03/09/17 09:00 03/10/17 21:00 Phenytoin (Dilantin) 300 mg BIDPC PO 03/09/17 10:00 03/10/17 18:26 Metronidazole (Flagyl) 500 mg Q6HR PO 03/10/17 18:00 03/11/17 05:42 Objective Remarks GENERAL APPEARANCE: Mrs. Valdes is a middle-aged lady. She is laying in bed and is in no acute distress. She is alert and oriented x3 and has a very pleasant disposition. HEENT: Head atraumatic, normocephalic, conjunctivae are pale, sclerae are anicteric, EOMI, PERRLA, oral exam - no pharyngeal erythema. NECK: No palpable cervical or supraclavicular lymphadenopathy. RESPIRATORY: On anterior exam she has good air movement bilaterally without any added breath sounds. CARDIOVASCULAR: Regular rate and rhythm, S1-S2 with a flow murmur without any murmurs, rubs or gallops. ABDOMEN: She has a compression dressing on. This was removed. Her abdomen is distended, tympanic to percussion, no organ enlargement noted. Over the right side of her abdomen starting in the right upper quadrant and tracing along her right abdomen and flank, she has a hemangioma. The posterior aspect of this is dressed with pads. LOWER EXTREMITIES: Left leg seems to have decreased muscle mass and tone. She maintains some range of motion at the level of the knee and of the ankle. The right leg however has significant changes. The thigh is certainly increased girth on the right as compared to left. Below the knee on the right side, she has extensive surgical changes with what appears to be skin grafting and significant muscle atrophy. Her left foot is edematous. She has decreased range of motion at the level of the right ankle. 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 Dressing over her lower back and right flank appear to be nonbloody, she has soiled herself with liquid stool. Assessment/Plan Assessment 61y/o with Anemia and thrombocytopenia secondary to acute blood loss from a large hemangioma associated with subcutaneous varices along the right flank and right lumbar area. 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 Scoliosis Epilepsy Functional debility. Large hemangiomas which have been present on her skin. Hypothyroidism Plan 1. Anemia: secondary to acute blood loss. s/p IV iron x 3 bags. B12 WNL. Hemoglobin has been gradually trending down over the past 48 hours, will transfuse 1 unit packed red blood cells today and monitor. 2. Thrombocytopenia: secondary to bleeding/consumption. improved but in the last 24 hours has dropped again somewhat. I suspect she may be bleeding again. 3. CT scan abdomen and pelvis reviewed, no acute intra-abdominal bleeding noted. No significant changes from previous CT scan from earlier this hospitalization. Andres Izquierdo MD Mar 11, 2017 07:34
[2017-03-11] MEDS ORDERED: ACETAMINOPHEN 325 MG TAB PO PRN (07:45)
[2017-03-11] MEDS ORDERED: diphenhydrAMINE HCL 25 MG CAP PO PRN (07:45)
[2017-03-11] MEDS ORDERED: SODIUM CHLOR 0.9% 250 ML INJ 250 ML IV ONE (07:45)
[2017-03-11] MEDS: BACITRACIN TOP OINT 15 GM TUBE TOPICAL SCH ×2 (09:00→21:00)
[2017-03-11] MEDS: SODIUM CHLORIDE 0.9% FLUSH 10 ML FLUSH IV FLUSH SCH ×2 (09:00→21:58)
[2017-03-11] MEDS: CYANOCOBALAMIN 1,000 MCG TAB PO SCH (10:39)
[2017-03-11] MEDS: GABAPENTIN 100 MG CAP PO SCH ×3 (10:39→17:51)
[2017-03-11] MEDS: CALCIUM CARBONATE 1.25 GM (CA 500 MG) TAB PO SCH (10:40)
[2017-03-11] MEDS: ASCORBIC ACID 500 MG TAB PO SCH ×2 (10:40→21:58)
[2017-03-11] MEDS: PANTOPRAZOLE SOD 20 MG DELAYED RELEASE TAB PO SCH (10:40)
[2017-03-11] MEDS: PHENYTOIN SODIUM 100 MG CAP PO SCH ×2 (10:40→17:51)
[2017-03-11] MEDS: CHOLECALCIFEROL (VIT D3) 1000 UNIT TAB PO SCH (10:41)
--- NOTE | 2017-03-11 10:58 | HHI.PR ---
Subjective Remarks Follow up anemia. Patient denies apparent active bleeding. Still with abdominal pain. No cough, chest pain. Chronic dyspnea is unchanged. Objective Vitals Vital Signs Date Time Temp Pulse Resp B/P Pulse Ox O2 Delivery O2 Flow Rate FiO2 03/11/17 08:59 99 Nasal Cannula 2.00 03/11/17 08:00 90 03/11/17 06:00 84 03/11/17 04:00 90 03/11/17 04:00 97.4 90 19 106/51 100 03/11/17 02:00 86 03/11/17 01:58 18 03/11/17 00:00 100 03/11/17 00:00 98.0 100 28 114/55 100 03/10/17 22:00 96 03/10/17 20:00 98.4 105 28 131/58 96 03/10/17 20:00 105 03/10/17 19:22 97 21 03/10/17 18:00 103 03/10/17 16:00 98.4 95 24 107/53 100 03/10/17 16:00 95 03/10/17 14:00 97 03/10/17 12:00 89 03/10/17 12:00 98.2 90 23 113/54 100 I/O 03/10/17 03/10/17 03/10/17 03/11/17 03/11/17 03/11/17 06:59 14:59 22:59 06:59 14:59 22:59 Intake Total 2656 ml 1364 ml 1088 ml 1433 ml Balance 2656 ml 1364 ml 1088 ml 1433 ml Intake Oral 600 ml 440 ml 480 ml 480 ml IV Total 2056 ml 924 ml 608 ml 953 ml # Voids 2 3 2 2 # Bowel Movements 0 1 0 0 Result Diagram: 03/11/17 0359 03/10/17 0429 Imaging Last Impressions Abdomen/Pelvis CT 03/10/17 0000 Signed Impressions: Service Date/Time: Friday, March 10, 2017 16:59 - CONCLUSION: Small left pleural effusion not present previously otherwise not significantly changed and right pelvic musculature and flank area appear larger compared to left side not significantly changed probably engorged related to previously described large collateral varices one of which is thrombosed adjacent to the right iliacus muscle. Saul Marie MD Objective Remarks General: No acute distress. Heart: Regular rate and rhythm. No murmur. Lungs: Clear to auscultation bilaterally. No wheezes, rales, or rhonchi. Breathing is nonlabored. Abdomen: Soft, nontender, mildly distended. Wound bandaged. Abdominal binder. Extremities: No lower extremity edema. SCDs. Psych: Alert and oriented. Procedures 03/08/17 partial closure of wound for hemostasis Urinary Catheter: No Vascular Central Line Catheter: No A/P Problem List: (1) Anemia ICD Code: D64.9 Status: Acute (2) Seizure disorder ICD Code: G40.909 Status: Chronic (3) Hypothyroidism ICD Code: E03.9 Status: Chronic (4) Thrombocytopenia ICD Code: D69.6 Status: Acute (5) Diarrhea ICD Code: R19.7 Status: Acute (6) C. difficile diarrhea ICD Code: A04.7 Status: Acute Assessment and Plan 1. Anemia secondary to acute blood loss: Hemoglobin low, but stable overnight. Has received 2 units PRBCs. Appreciate hematology recommendations. Transfusion ordered by hematology this morning. 2. Large continues hemangioma: This is the source of bleeding. Status post closure by general surgery. No active bleeding reported overnight by nursing. 3. Hypotension, early hemorrhagic shock, tachycardia: Vital signs remain stable. Continue IV fluids. 4. Seizure disorder: Continue phenobarbital, Dilantin, Neurontin. Check serum Dilantin level. 5. Hypothyroidism: Continue levothyroxine. 6. Thrombocytopenia: Likely consumptive. Appreciate hematology recommendations. 7. C. difficile: Continue Flagyl. Infectious disease consult is pending. 8. DVT prophylaxis: SCDs. Avoid chemical prophylaxis secondary to bleeding, anemia. Problem Qualifiers (1) Anemia: Qualified Code: D62 - Acute posthemorrhagic anemia Joe Chowdhury MD Mar 11, 2017 10:58
[2017-03-11] MEDS: PHENobarbital 32.4 MG TAB PO SCH ×2 (11:20→21:57)
[2017-03-11 14:50] LABS: HEMATOCRIT 25.5 % (35.0-46.0); REVIEW FLAG FINAL
--- NOTE | 2017-03-11 15:35 | HHI.PR ---
Subjective Subjective Notes Having problems using WiFi on iPad Otherwise no issues; no bleeding overnight Objective Vitals/I&O Vital Signs Date Time Temp Pulse Resp B/P Pulse Ox O2 Delivery O2 Flow Rate FiO2 03/11/17 14:00 98 03/11/17 12:00 98.5 20 129/63 100 03/11/17 08:59 Nasal Cannula 2.00 03/10/17 19:22 21 Labs Laboratory Tests Test 03/10/17 03/11/17 03/11/17 03/11/17 21:29 00:43 03:59 11:50 Hemoglobin 7.9 7.2 7.5 Hematocrit 23.1 21.9 22.6 Blood Type AB POSITIVE Antibody Screen NEGATIVE Crossmatch Leukocyte-Reduced Red Blood Cells Blood Bank Comment Test 03/11/17 14:15 Hemoglobin 8.5 Hematocrit 25.5 Cardiovascular: Regular Lungs: Clear Abdomen: Non-distended, Non-tender, Other (arge cutaneous hemangioma----s/p partial closure ---dressing removed and no bleeding visualed ) Extremities: Other (generalized mild edema ) A/P Assessment and Plan 61 year old female with large cutaneous hemangioma s/p partial closure for hemostasis -Hmg 7.5 today; no active bleeding from closure site -No signs of bleeding and VSS (no hypotension or tachycardia) -Continue to monitor clinically and labs -Discussed with Niecy Carrasco Mar 11, 2017 15:35
--- NOTE | 2017-03-11 17:43 | PD.ID.CON ---
History of Present Illness Service ID Consult Requested By Reason for Consult Evaluation and management of C. difficile. Primary Care Physician Ketan David, DO Diagnoses: History of Present Illness is a 61 y/o CF who was admitted to hospital service on 03/07/17 with bleeding from her wound on right flank and back hemangioma. Patient has a history of Klippel-Trenaunay syndrome, seizure disorder and was in a rehab facility and using a TLSO brace. The brace had caused abrasion and necrosis of hemangioma. Initially bleeding was controlled by dressing, but yesterday developed significant bleeding and General surgery was consulted. Dr. Clemente was able to place sutures at the bleeding site which controlled bleeding temporarily. Today's patient started rebleeding from the site which caused hypotension and tachycardia. Patient was given 2 units of PRBC transfusion and was transferred to [facility] for possible surgical evaluation and/or intervention. Patient is seen in ICU. On room air, UO good (freq diaper changes). No rash. Has diarrhea not too frequent. Only 1 charted in I/O section. Pt denies any worsening abdominal pain or discomfort. Cdiff PCR positive and pt started on oral flagyl. ID consulted for Cdiff positive diarrhea. 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 Seizure disorder Peripheral neuropathy Hypothyroidism Scoliosis Past Surgical History Post traumatic sacral fracture and lumbar fracture Back surgery for scoliosis Cataracts Ear surgery Reported Medications Last Impressions Abdomen/Pelvis CT 03/10/17 0000 Signed Impressions: Service Date/Time: Friday, March 10, 2017 16:59 - CONCLUSION: Small left pleural effusion not present previously otherwise not significantly changed and right pelvic musculature and flank area appear larger compared to left side not significantly changed probably engorged related to previously described large collateral varices one of which is thrombosed adjacent to the right iliacus muscle. Saul Marie MD Active Ordered Medications Reported Meds & Active Scripts Active Eq Acetaminophen (Acetaminophen) 325 Mg Tab 650 Mg PO Q4H PRN Reported Senna-Plus (Sennosides-Docusate Sodium) 8.6-50 Mg Tab 2 Tab PO DAILY Polyethylene Glycol 3350 Powder (Polyethylene Glycol) 17 Gm Pow 17 Gm PO DAILY Lopressor (Metoprolol Tartrate) 50 Mg Tab 12.5 Mg PO BID Vitamin C (Ascorbic Acid) 250 Mg Chew 500 Mg CHEW BID Magnesium Citrate 100 Mg Tab 296 Ml PO DAILY Omeprazole 20 Mg Tab 20 Mg PO DAILY Vitamin B-12 (Cyanocobalamin) 1,000 Mcg Tab 1,000 Mcg PO DAILY Mobic (Meloxicam) 7.5 Mg Tab 7.5 Mg PO DAILY Neurontin (Gabapentin) 100 Mg Cap 100 Mg PO TID Dilantin (Phenytoin Extended) 100 Mg Cap 200 Mg PO DAILY Phenobarbital 30 Mg Tab 30 Mg PO BID Multiple Vitamin 1 Tab 1 Tab PO DAILY Calcium Carbonate 1,500 Mg Tab 1,500 Mg PO DAILY 1,500 mg calcium carbonate (600 mg elemental calcium) Stool Softener Extra Strength (Docusate Sodium) 250 Mg Cap 250 Mg PO DAILY PRN Vitamin D3 (Cholecalciferol) 1,000 Unit Cap 1,000 Units PO DAILY Fosamax (Alendronate Sodium) 70 Mg Tab 70 Mg PO Q7D Dilantin (Phenytoin Extended) 100 Mg Cap 300 Mg PO BID Levothyroxine (Levothyroxine Sodium) 75 Mcg Tab 75 Mcg PO DAILY Family History could not be obtained. Will try again. Social History could not be obtained due to patient condition. Physical Exam Vital Signs Vital Signs Date Time Temp Pulse Resp B/P Pulse Ox O2 Delivery O2 Flow Rate FiO2 03/11/17 16:09 98.3 92 20 121/56 99 03/11/17 16:00 98 03/11/17 16:00 98.8 94 29 128/62 100 03/11/17 14:00 98 03/11/17 12:00 98.5 95 20 129/63 100 03/11/17 12:00 98 03/11/17 10:00 92 03/11/17 08:59 99 Nasal Cannula 2.00 03/11/17 08:00 98.1 92 20 109/71 100 03/11/17 08:00 90 03/11/17 06:00 84 03/11/17 04:00 90 03/11/17 04:00 97.4 90 19 106/51 100 03/11/17 02:00 86 03/11/17 01:58 18 03/11/17 00:00 100 03/11/17 00:00 98.0 100 28 114/55 100 03/10/17 22:00 96 03/10/17 20:00 98.4 105 28 131/58 96 03/10/17 20:00 105 03/10/17 19:22 97 21 03/10/17 18:00 103 Physical Exam GENERAL: This is a well-nourished, well-developed patient, in no apparent distress. SKIN: No rashes, ecchymoses or lesions. Cool and dry. HEAD: Atraumatic. Normocephalic. No temporal or scalp tenderness. EYES: Pupils equal round and reactive. Extraocular motions intact. No scleral icterus. No injection or drainage. ENT: Nose without bleeding, purulent drainage or septal hematoma. Throat without erythema, tonsillar hypertrophy or exudate. Uvula midline. Airway patent. NECK: Trachea midline. Supple, nontender, no meningeal signs. CARDIOVASCULAR: Regular rate and rhythm without murmurs, gallops, or rubs. RESPIRATORY: Clear to auscultation. Breath sounds equal bilaterally. No wheezes , rales, or rhonchi. GASTROINTESTINAL: Abdomen soft, non-tender, nondistended. MUSCULOSKELETAL: Extremities without clubbing, cyanosis, or edema. NEUROLOGICAL: Awake and alert. Responding appropriately. Psych flat affect IV line sites with no e.o infection. Laboratory Laboratory Tests Test 03/10/17 03/11/17 03/11/17 03/11/17 21:29 00:43 03:59 11:50 Hemoglobin 7.9 7.2 7.5 Hematocrit 23.1 21.9 22.6 Blood Type AB POSITIVE Antibody Screen NEGATIVE Crossmatch Leukocyte-Reduced Red Blood Cells Blood Bank Comment Test 03/11/17 14:15 Hemoglobin 8.5 Hematocrit 25.5 Result Diagram: 03/11/17 1415 03/10/17 0429 Imaging Last Impressions Abdomen/Pelvis CT 7/31/17 0000 Signed Impressions: Service Date/Time: Friday, March 10, 2017 16:59 - CONCLUSION: Small left pleural effusion not present previously otherwise not significantly changed and right pelvic musculature and flank area appear larger compared to left side not significantly changed probably engorged related to previously described large collateral varices one of which is thrombosed adjacent to the right iliacus muscle. Saul Marie MD Assessment and Plan Assessment and Plan Cdiff positive diarrhea Risk factors resident of SNF, surgeries etc. Large cutaneous hemangioma with active bleeding on admission s/p hemorrhagic shock. Seizure disorder Recs Continue Oral Flagyl (stop date 03/23/2017). Will sign off please call back if any change in clinical condition or questions. Meryl Martinez MD Mar 11, 2017 17:43
[2017-03-11 21:13] LABS: HEMATOCRIT 26.4 % (35.0-46.0); REVIEW FLAG FINAL
[2017-03-12] VITALS (12 sets, daily range): BP systolic 123–140; BP diastolic 57–66; PULSE 74–110; RESP 16–27; TEMP 97.5–98.6; O2SAT 94–100
[2017-03-12] MEDS: metroNIDAZOLE 500 MG TAB PO SCH ×4 (00:13→17:38)
[2017-03-12] MEDS: ACETAMINOPHEN 500 MG CPLT PO PRN ×2 (03:02→17:39)
[2017-03-12 04:50] LABS: AUTOMATED NEUTROPHIL # 4.9 TH/MM3 (1.8-7.7); BASOPHIL % 0.3 % (0.0-2.0); EOSINOPHIL # 0.3 TH/MM3 (0-0.4); EOSINOPHIL % 3.8 % (0.0-4.0); HEMATOCRIT 25.2 % (35.0-46.0); HEMO FLAGS DIFF FINAL; LYMPH % 10.1 % (9.0-44.0); LYMPHOCYTE # 0.7 TH/MM3 (1.0-4.8); MEAN CELL VOLUME 90.1 FL (80.0-100.0); MEAN CORPUSCULAR HEMOGLOBIN 31.2 PG (27.0-34.0); MEAN CORPUSCULAR HGB CONC 34.7 % (32.0-36.0); MONO % 14.5 % (0.0-8.0); NEUT % 71.3 % (16.0-70.0); PLATELET COUNT 129 TH/MM3 (150-450); RED CELL DISTRIBUTION WIDTH 15.3 % (11.6-17.2); WHITE BLOOD COUNT 6.8 TH/MM3 (4.0-11.0)
[2017-03-12] MEDS: LEVOTHYROXINE SODIUM 75 MCG TAB PO SCH (05:17)
[2017-03-12] MEDS: BACITRACIN TOP OINT 15 GM TUBE TOPICAL SCH ×2 (09:00→21:25)
[2017-03-12] MEDS: SODIUM CHLORIDE 0.9% FLUSH 10 ML FLUSH IV FLUSH SCH ×2 (09:00→21:00)
--- NOTE | 2017-03-12 09:55 | HHI.PR ---
Subjective Remarks Follow-up anemia, bleeding from hemangioma. Patient states that she feels about the same today. Pain is reasonably well controlled. No active bleeding reported. Objective Vitals Vital Signs Date Time Temp Pulse Resp B/P Pulse Ox O2 Delivery O2 Flow Rate FiO2 03/12/17 07:31 99 Nasal Cannula 2.00 03/12/17 06:00 96 03/12/17 04:02 20 03/12/17 04:00 92 03/12/17 04:00 98.3 92 22 137/65 97 03/12/17 02:00 94 03/12/17 00:00 96 03/12/17 00:00 98.3 96 25 123/60 100 03/11/17 22:00 96 03/11/17 20:00 102 03/11/17 20:00 98.3 102 28 135/61 94 03/11/17 18:00 96 03/11/17 16:09 98.3 92 20 121/56 99 03/11/17 16:00 98 03/11/17 16:00 98.8 94 29 128/62 100 03/11/17 14:00 98 03/11/17 12:00 98.5 95 20 129/63 100 03/11/17 12:00 98 03/11/17 10:00 92 I/O 03/11/17 03/11/17 03/11/17 03/12/17 03/12/17 03/12/17 07:00 15:00 23:00 07:00 15:00 23:00 Intake Total 1433 ml 2119 ml 720 ml 240 ml Output Total 520 ml Balance 1433 ml 1599 ml 720 ml 240 ml Intake Oral 480 ml 500 ml 720 ml 240 ml IV Total 953 ml 1369 ml 0 ml Packed Cells 250 ml Output Urine Total 500 ml Stool Total 20 ml # Voids 2 2 2 # Bowel Movements 0 1 1 Result Diagram: 03/12/17 0426 03/10/17 0429 Imaging Last Impressions Abdomen/Pelvis CT 03/10/17 0000 Signed Impressions: Service Date/Time: Friday, March 10, 2017 16:59 - CONCLUSION: Small left pleural effusion not present previously otherwise not significantly changed and right pelvic musculature and flank area appear larger compared to left side not significantly changed probably engorged related to previously described large collateral varices one of which is thrombosed adjacent to the right iliacus muscle. Saul Marie MD Objective Remarks General: No acute distress. Heart: Regular rate and rhythm. No murmur. Lungs: Clear to auscultation bilaterally. No wheezes, rales, or rhonchi. Breathing is nonlabored. Abdomen: Soft, nontender, mildly distended. Wound bandaged. Abdominal binder. Extremities: 2+ right lower extremity edema. SCDs. Psych: Alert and oriented. Procedures 03/08/17 partial closure of wound for hemostasis Urinary Catheter: No Vascular Central Line Catheter: No A/P Problem List: (1) Anemia ICD Code: D64.9 Status: Acute (2) Seizure disorder ICD Code: G40.909 Status: Chronic (3) Hypothyroidism ICD Code: E03.9 Status: Chronic (4) Thrombocytopenia ICD Code: D69.6 Status: Acute (5) Diarrhea ICD Code: R19.7 Status: Acute (6) C. difficile diarrhea ICD Code: A04.7 Status: Acute Assessment and Plan 1. Anemia secondary to acute blood loss: Hemoglobin slightly improved following transfusion. Has received a total of 3 units PRBCs. Appreciate hematology recommendations. 2. Large cutaneous hemangioma: This is the source of bleeding. Status post partial closure by general surgery. No active bleeding reported by nursing. 3. Hypotension, early hemorrhagic shock, tachycardia: Resolved. Vital signs remain stable. 4. Seizure disorder: Continue phenobarbital, Dilantin, Neurontin. 5. Hypothyroidism: Continue levothyroxine. 6. Thrombocytopenia: Likely consumptive. Appreciate hematology recommendations. 7. C. difficile: Continue Flagyl. Appreciate infectious disease recommendations. Flagyl stop date 03/23/17. 8. DVT prophylaxis: SCDs. Avoid chemical prophylaxis secondary to bleeding, anemia. Discharge Planning Transfer to medical/surgical floor with telemetry. Problem Qualifiers (1) Anemia: Qualified Code: D62 - Acute posthemorrhagic anemia Joe Chowdhury MD Mar 12, 2017 09:55
[2017-03-12] MEDS: CYANOCOBALAMIN 1,000 MCG TAB PO SCH (10:35)
[2017-03-12] MEDS: PHENobarbital 32.4 MG TAB PO SCH ×2 (10:35→21:25)
[2017-03-12] MEDS: PANTOPRAZOLE SOD 20 MG DELAYED RELEASE TAB PO SCH (10:35)
[2017-03-12] MEDS: CALCIUM CARBONATE 1.25 GM (CA 500 MG) TAB PO SCH (10:35)
[2017-03-12] MEDS: CHOLECALCIFEROL (VIT D3) 1000 UNIT TAB PO SCH (10:35)
[2017-03-12] MEDS: ASCORBIC ACID 500 MG TAB PO SCH ×2 (10:36→21:25)
[2017-03-12] MEDS: GABAPENTIN 100 MG CAP PO SCH ×3 (10:36→17:39)
[2017-03-12] MEDS: PHENYTOIN SODIUM 100 MG CAP PO SCH ×2 (10:36→17:39)
--- NOTE | 2017-03-12 16:51 | HHI.PR ---
Subjective Subjective Notes Resting in bed playing on phone No issues overnight No reported bleeding from wound Objective Vitals/I&O Vital Signs Date Time Temp Pulse Resp B/P Pulse Ox O2 Delivery O2 Flow Rate FiO2 03/12/17 16:00 97.5 110 27 133/63 100 03/12/17 07:31 Nasal Cannula 2.00 03/10/17 19:22 21 Labs Laboratory Tests Test 03/11/17 03/12/17 20:12 04:26 Hemoglobin 8.9 8.7 Hematocrit 26.4 25.2 White Blood Count 6.8 Red Blood Count 2.80 Mean Corpuscular Volume 90.1 Mean Corpuscular Hemoglobin 31.2 Mean Corpuscular Hemoglobin 34.7 Concent Red Cell Distribution Width 15.3 Platelet Count 129 Mean Platelet Volume 7.8 Neutrophils (%) (Auto) 71.3 Lymphocytes (%) (Auto) 10.1 Monocytes (%) (Auto) 14.5 Eosinophils (%) (Auto) 3.8 Basophils (%) (Auto) 0.3 Neutrophils # (Auto) 4.9 Lymphocytes # (Auto) 0.7 Monocytes # (Auto) 1.0 Eosinophils # (Auto) 0.3 Basophils # (Auto) 0.0 CBC Comment DIFF FINAL Differential Comment Cardiovascular: Regular Lungs: Clear Abdomen: Other (partial closed flank wound with minmal drainage on bandage ) Extremities: No edema A/P Assessment and Plan 61 year old female with large cutaneous hemangioma s/p partial closure for hemostasis -Hmg 8.7 today; no active bleeding from closure site -No signs of bleeding and VSS (no hypotension or tachycardia) -Continue to monitor clinically and labs -Advance diet as tolerated Niecy Mauro Mar 12, 2017 16:51
[2017-03-13] MEDS: metroNIDAZOLE 500 MG TAB PO SCH ×4 (00:47→18:00)
[2017-03-13] MEDS: ACETAMINOPHEN 500 MG CPLT PO PRN ×3 (01:06→21:15)
[2017-03-13 04:19] VITALS: BP 128/64; PULSE 100; RESP 18; TEMP 97.4; O2SAT 92
[2017-03-13] MEDS: LEVOTHYROXINE SODIUM 75 MCG TAB PO SCH (05:25)
[2017-03-13 07:02] LABS: AUTOMATED NEUTROPHIL # 5.1 TH/MM3 (1.8-7.7); BASOPHIL % 0.4 % (0.0-2.0); EOSINOPHIL # 0.2 TH/MM3 (0-0.4); EOSINOPHIL % 2.1 % (0.0-4.0); HEMATOCRIT 28.4 % (35.0-46.0); HEMO FLAGS DIFF FINAL; LYMPH % 10.6 % (9.0-44.0); LYMPHOCYTE # 0.7 TH/MM3 (1.0-4.8); MEAN CELL VOLUME 91.1 FL (80.0-100.0); MEAN CORPUSCULAR HEMOGLOBIN 31.3 PG (27.0-34.0); MEAN CORPUSCULAR HGB CONC 34.3 % (32.0-36.0); MONO % 14.3 % (0.0-8.0); NEUT % 72.6 % (16.0-70.0); PLATELET COUNT 147 TH/MM3 (150-450); RED BLOOD COUNT 3.12 MIL/MM3 (4.00-5.30); RED CELL DISTRIBUTION WIDTH 15.4 % (11.6-17.2); WHITE BLOOD COUNT 7.1 TH/MM3 (4.0-11.0)
[2017-03-13 07:29] LABS: POTASSIUM 3.5 MEQ/L (3.5-5.1)
[2017-03-13 08:00] VITALS: BP 137/66; PULSE 97; RESP 16; TEMP 98.8; O2SAT 97
[2017-03-13] MEDS: CYANOCOBALAMIN 1,000 MCG TAB PO SCH (08:07)
[2017-03-13] MEDS: ASCORBIC ACID 500 MG TAB PO SCH ×2 (08:07→21:10)
[2017-03-13] MEDS: GABAPENTIN 100 MG CAP PO SCH ×3 (08:07→18:00)
[2017-03-13] MEDS: PHENobarbital 32.4 MG TAB PO SCH ×2 (08:07→21:10)
[2017-03-13] MEDS: CALCIUM CARBONATE 1.25 GM (CA 500 MG) TAB PO SCH (08:07)
[2017-03-13] MEDS: CHOLECALCIFEROL (VIT D3) 1000 UNIT TAB PO SCH (08:07)
[2017-03-13] MEDS: PANTOPRAZOLE SOD 20 MG DELAYED RELEASE TAB PO SCH (08:07)
[2017-03-13] MEDS: PHENYTOIN SODIUM 100 MG CAP PO SCH ×2 (08:07→18:00)
[2017-03-13] MEDS: SODIUM CHLORIDE 0.9% FLUSH 10 ML FLUSH IV FLUSH SCH ×2 (08:08→21:11)
[2017-03-13] MEDS: BACITRACIN TOP OINT 15 GM TUBE TOPICAL SCH ×2 (08:09→21:11)
--- NOTE | 2017-03-13 09:50 | HHI.PR ---
Subjective Remarks Follow up anemia. No further bleeding reported. Patient states that she feels "about the same". Denies chest pain. Dyspnea is chronic, unchanged. No nausea/ vomiting. Objective Vitals Vital Signs Date Time Temp Pulse Resp B/P Pulse Ox O2 Delivery O2 Flow Rate FiO2 03/13/17 08:00 98.8 97 16 137/66 97 03/13/17 04:19 97.4 100 18 128/64 92 03/12/17 23:45 98.5 74 18 133/60 96 03/12/17 20:29 97.7 105 17 127/60 96 03/12/17 16:00 97.5 110 27 133/63 100 03/12/17 16:00 108 03/12/17 16:00 98.6 95 16 124/57 98 03/12/17 14:00 99 03/12/17 12:00 96 03/12/17 12:00 98.6 98 21 124/60 94 03/12/17 10:00 96 I/O 03/12/17 03/12/17 03/12/17 03/13/17 03/13/17 03/13/17 07:00 15:00 23:00 07:00 15:00 23:00 Intake Total 240 ml 500 ml 360 ml 360 ml Output Total 1250 ml Balance 240 ml -750 ml 360 ml 360 ml Intake Oral 240 ml 500 ml 360 ml 360 ml Output Urine Total 1200 ml Stool Total 50 ml # Voids 2 2 2 # Bowel Movements 1 Result Diagram: 03/13/17 0621 03/13/17 0621 Imaging Last Impressions Abdomen/Pelvis CT 03/10/17 0000 Signed Impressions: Service Date/Time: Friday, March 10, 2017 16:59 - CONCLUSION: Small left pleural effusion not present previously otherwise not significantly changed and right pelvic musculature and flank area appear larger compared to left side not significantly changed probably engorged related to previously described large collateral varices one of which is thrombosed adjacent to the right iliacus muscle. Saul Marie MD Objective Remarks General: No acute distress. Heart: Regular rate and rhythm. No murmur. Lungs: Clear to auscultation bilaterally. No wheezes, rales, or rhonchi. Breathing is nonlabored. Abdomen: Soft, nontender, mildly distended. Wound bandaged. Abdominal binder. Extremities: 2+ right lower extremity edema. SCDs. Psych: Alert and oriented. Procedures 03/08/17 partial closure of wound for hemostasis Urinary Catheter: No Vascular Central Line Catheter: No A/P Problem List: (1) Anemia ICD Code: D64.9 Status: Acute (2) Seizure disorder ICD Code: G40.909 Status: Chronic (3) Hypothyroidism ICD Code: E03.9 Status: Chronic (4) Thrombocytopenia ICD Code: D69.6 Status: Acute (5) Diarrhea ICD Code: R19.7 Status: Acute (6) C. difficile diarrhea ICD Code: A04.7 Status: Acute Assessment and Plan 1. Anemia secondary to acute blood loss: Hemoglobin slightly improved following transfusion. Has received a total of 3 units PRBCs. Appreciate hematology recommendations. 2. Large cutaneous hemangioma: This is the source of bleeding. Status post partial closure by general surgery. No active bleeding reported by nursing. 3. Hypotension, early hemorrhagic shock, tachycardia: Resolved. Vital signs remain stable. 4. Seizure disorder: Continue phenobarbital, Dilantin, Neurontin. 5. Hypothyroidism: Continue levothyroxine. 6. Thrombocytopenia: Likely consumptive. Appreciate hematology recommendations. 7. C. difficile: Continue Flagyl. Appreciate infectious disease recommendations. Flagyl stop date 03/23/17. 8. DVT prophylaxis: SCDs. Avoid chemical prophylaxis secondary to bleeding, anemia. Discharge Planning Anticipate discharge soon to SNF vs home with home health if Hgb remains stable. PT eval is pending. Problem Qualifiers (1) Anemia: Qualified Code: D62 - Acute posthemorrhagic anemia Joe Chowdhury MD Mar 13, 2017 09:49
[2017-03-13 12:00] VITALS: BP 123/56; PULSE 113; RESP 16; TEMP 97.2; O2SAT 92
--- NOTE | 2017-03-13 14:05 | PD.ONC.PN ---
Subjective Subjective Remarks Afebrile overnight Patient resting in bed with visitor at bedside She is concerned that she has not had a bowel movement today Objective Data Date Time Temp Pulse Resp B/P Pulse Ox O2 Delivery O2 Flow Rate FiO2 03/13/17 12:00 97.2 113 16 123/56 92 03/13/17 08:00 98.8 97 16 137/66 97 03/13/17 04:19 97.4 100 18 128/64 92 03/12/17 23:45 98.5 74 18 133/60 96 03/12/17 20:29 97.7 105 17 127/60 96 03/12/17 16:00 97.5 110 27 133/63 100 03/12/17 16:00 108 03/12/17 16:00 98.6 95 16 124/57 98 03/12/17 14:00 99 03/13/17 03/13/17 03/13/17 07:00 15:00 23:00 Intake Total 360 ml Balance 360 ml Result Diagram: 03/13/1721 03/13/17 0621 Laboratory Results Laboratory Tests Test 03/13/17 06:21 White Blood Count 7.1 TH/MM3 Red Blood Count 3.12 MIL/MM3 Hemoglobin 9.8 GM/DL Hematocrit 28.4 % Mean Corpuscular Volume 91.1 FL Mean Corpuscular Hemoglobin 31.3 PG Mean Corpuscular Hemoglobin 34.3 % Concent Red Cell Distribution Width 15.4 % Platelet Count 147 TH/MM3 Mean Platelet Volume 7.7 FL Neutrophils (%) (Auto) 72.6 % Lymphocytes (%) (Auto) 10.6 % Monocytes (%) (Auto) 14.3 % Eosinophils (%) (Auto) 2.1 % Basophils (%) (Auto) 0.4 % Neutrophils # (Auto) 5.1 TH/MM3 Lymphocytes # (Auto) 0.7 TH/MM3 Monocytes # (Auto) 1.0 TH/MM3 Eosinophils # (Auto) 0.2 TH/MM3 Basophils # (Auto) 0.0 TH/MM3 CBC Comment DIFF FINAL Differential Comment Sodium Level 139 MEQ/L Potassium Level 3.5 MEQ/L Chloride Level 102 MEQ/L Carbon Dioxide Level 31.0 MEQ/L Anion Gap 6 MEQ/L Blood Urea Nitrogen 5 MG/DL Creatinine 0.43 MG/DL Estimat Glomerular Filtration 149 ML/MIN Rate Random Glucose 109 MG/DL Calcium Level 8.0 MG/DL Administered Medications Medications (Trade) Dose Ordered Sig/Ivette Route PRN Reason Start Time Stop Time Status Last Admin Dose Admin Sodium Chloride (NS Flush) 2 ml BID IV FLUSH 03/07/17 09:00 03/13/17 08:08 Acetaminophen (Tylenol) 500 mg Q4H PRN PO pain 03/07/17 11:15 03/13/17 05:26 Calcium Carbonate (Oscal) 1,500 mg DAILY PO 03/07/17 12:00 03/13/17 08:07 Cholecalciferol (Vitamin D3) 1,000 units DAILY PO 03/07/17 12:00 03/13/17 08:07 Cyanocobalamin (Vitamin B12) 1,000 mcg DAILY PO 03/07/17 12:00 03/13/17 08:07 Gabapentin (Neurontin) 100 mg TID PO 03/07/17 13:00 03/13/17 08:07 Levothyroxine Sodium (Synthroid) 75 mcg DAILY@06 PO 03/07/17 11:30 03/13/17 05:25 Metoprolol Tartrate (Lopressor) 12.5 mg BID PO 03/07/17 12:00 Hold 03/08/17 20:07 Ascorbic Acid (Vitamin C) 500 mg BID PO 03/07/17 21:00 03/13/17 08:07 Docusate Sodium (Colace Liq) 250 mg DAILY PRN PO CONSTIPATION 03/07/17 12:00 03/07/17 12:23 Pantoprazole Sodium (Protonix) 20 mg DAILY PO 03/08/17 09:00 03/13/17 08:07 Phenobarbital (PHENobarbital) 32.4 mg BID PO 03/07/17 21:00 03/13/17 08:07 Polyethylene Glycol (Miralax) 17 gm DAILY PO 03/07/17 22:00 Hold 03/07/17 22:30 Bacitracin (Baciguent Oint) 1 applic Q12HR TOPICAL 03/09/17 09:00 03/13/17 08:09 Phenytoin (Dilantin) 300 mg BIDPC PO 03/09/17 10:00 03/13/17 08:07 Metronidazole (Flagyl) 500 mg Q6HR PO 03/10/17 18:00 03/23/17 17:59 03/13/17 05:25 Objective Remarks GENERAL: Chronically ill-appearing female resting in bed in no distress SKIN: Warm and dry. HEAD: Normocephalic. EYES: No injection or drainage. NECK: Supple, trachea midline. CARDIOVASCULAR: Regular rate and rhythm. RESPIRATORY: Breath sounds equal bilaterally. No accessory muscle use. GASTROINTESTINAL: Abdomen mildly distended abdominal binder in place. bandages in place, are c/d/i. EXTREMITIES: No cyanosis, or edema. NEUROLOGICAL: Moving all extremities. Normal speech Assessment/Plan Assessment 61y/o with Anemia and thrombocytopenia secondary to acute blood loss from a large hemangioma associated with subcutaneous varices along the right flank and right lumbar area. 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 Scoliosis Epilepsy Functional debility. Large hemangiomas which have been present on her skin. Hypothyroidism Plan 1. Hemoglobin has been stable since blood transfusion on March 11. 2. Thrombocytopenia: Secondary to bleeding/consumption. This is almost normalized. Will continue to monitor 3. Monitor CBC 4. Monitor for bleeding Tiffani Linder Mar 13, 2017 14:04
[2017-03-13 16:00] VITALS: BP 143/66; PULSE 106; RESP 18; TEMP 96.9; O2SAT 92
--- NOTE | 2017-03-13 18:34 | PD.WCN.NOT ---
Wound Consult Description: Consult per protocol for PRESSURE ULCER of right flank area per Dr Chowdhury/ Vishal Peng. Communicated with: ODALIS English Recommendation: Right Flank every 2-3 days and PRN for saturation or dislodgement: Cleanse with wound cleanser Apply single layer Xeroform to sutures and open wounds Secure with foam adhesive Additional Information: Patient seen on for wound evaluation of right flank. Patient was positioned to her left side for assessment. There was a dressing of gauze, tape , and maxorb found in her abdominal binder that was up around her chest, with minimal serosang dried exudate noted to maxorb. There were 3 wounds open to air noted to the right flank within a hemangioma that began at her right lateral rib cage, reached across half of her abdomen, and down to her right thigh. #1 wound measured 0.9cm x 5cm x 0.3cm with sutures intact and edges unapproximated. There was no odor and no active drainage noted. #2 wound was full thickness, oval shaped, and measured 2cm x 4cm x 0.4cm with ~75% red non granulating tissue and ~25% adipose tissue noted in a crater like wound bed. There was no odor and no active drainage noted. #3 wound was round and measured 1cm x 1cm x 0.2cm with 100% red non granulating tissue noted indicating a partial thickness skin loss area. There was no odor and no active drainage noted. Wounds are of unknown etiology but suspected to be device related, then surgical, and possibly adhesive related. Patient was wearing a TSLO brace prior to admission. Xeroform was applied over all 3 wounds for bacteriostatic properties, and to keep foam from sticking to sutures on #1 wound. A foam dressing was then used to cover and secure the Xeroform to allow for drainage and absorption as well as keeping a moist environment for healing purposes. Dressing dated today 03/13/17 and may remain in place for up to 3 days unless saturated or dislodged. Greer Tobar [facility] Mar 13, 2017 18:34
[2017-03-13 20:00] VITALS: BP 145/65; PULSE 100; RESP 17; TEMP 98.4; O2SAT 95
[2017-03-14] VITALS: BP 145/70; PULSE 100; RESP 17; TEMP 97.8; O2SAT 94
[2017-03-14] MEDS: metroNIDAZOLE 500 MG TAB PO SCH ×3 (00:18→12:46)
[2017-03-14] MEDS: LEVOTHYROXINE SODIUM 75 MCG TAB PO SCH (05:23)
[2017-03-14 05:45] LABS: BASOPHIL % 0.5 % (0.0-2.0); EOSINOPHIL # 0.1 TH/MM3 (0-0.4); EOSINOPHIL % 2.5 % (0.0-4.0); HEMATOCRIT 29.7 % (35.0-46.0); HEMO FLAGS DIFF FINAL; LYMPH % 13.8 % (9.0-44.0); LYMPHOCYTE # 0.8 TH/MM3 (1.0-4.8); MEAN CELL VOLUME 91.3 FL (80.0-100.0); MEAN CORPUSCULAR HEMOGLOBIN 30.5 PG (27.0-34.0); MEAN CORPUSCULAR HGB CONC 33.4 % (32.0-36.0); MONO % 13.8 % (0.0-8.0); NEUT % 69.4 % (16.0-70.0); PLATELET COUNT 153 TH/MM3 (150-450); RED BLOOD COUNT 3.25 MIL/MM3 (4.00-5.30); RED CELL DISTRIBUTION WIDTH 15.4 % (11.6-17.2); WHITE BLOOD COUNT 5.8 TH/MM3 (4.0-11.0)
[2017-03-14] MEDS: ACETAMINOPHEN 500 MG CPLT PO PRN ×2 (07:52→12:46)
[2017-03-14 08:00] VITALS: BP 154/70; PULSE 98; RESP 16; TEMP 96.6; O2SAT 94
[2017-03-14] MEDS: CHOLECALCIFEROL (VIT D3) 1000 UNIT TAB PO SCH (09:06)
[2017-03-14] MEDS: PANTOPRAZOLE SOD 20 MG DELAYED RELEASE TAB PO SCH (09:06)
[2017-03-14] MEDS: GABAPENTIN 100 MG CAP PO SCH ×2 (09:07→12:47)
[2017-03-14] MEDS: ASCORBIC ACID 500 MG TAB PO SCH (09:07)
[2017-03-14] MEDS: PHENobarbital 32.4 MG TAB PO SCH (09:08)
[2017-03-14] MEDS: PHENYTOIN SODIUM 100 MG CAP PO SCH (09:08)
[2017-03-14] MEDS: CALCIUM CARBONATE 1.25 GM (CA 500 MG) TAB PO SCH (09:08)
[2017-03-14] MEDS: CYANOCOBALAMIN 1,000 MCG TAB PO SCH (09:09)
[2017-03-14] MEDS: BACITRACIN TOP OINT 15 GM TUBE TOPICAL SCH (09:09)
[2017-03-14] MEDS: SODIUM CHLORIDE 0.9% FLUSH 10 ML FLUSH IV FLUSH SCH (09:10)
[2017-03-14 12:00] VITALS: BP 162/73; PULSE 102; RESP 17; TEMP 97.6; O2SAT 94
--- NOTE | 2017-03-14 13:14 | HHI.PR ---
Subjective Remarks Follow-up for anemia Hemoglobin stable, pain is controlled. No abdominal pain, no chest pain or shortness of breath. Objective Vitals Vital Signs Date Time Temp Pulse Resp B/P Pulse Ox O2 Delivery O2 Flow Rate FiO2 03/14/17 08:00 96.6 98 16 154/70 94 03/14/17 00:00 97.8 100 17 145/70 94 03/13/17 20:00 98.4 100 17 145/65 95 03/13/17 16:00 96.9 106 18 143/66 92 I/O 03/13/17 03/13/17 03/13/17 03/14/17 03/14/17 03/14/17 06:59 14:59 22:59 06:59 14:59 22:59 Intake Total 360 ml 720 ml 240 ml 240 ml Balance 360 ml 720 ml 240 ml 240 ml Intake Oral 360 ml 720 ml 240 ml 240 ml # Voids 2 4 4 5 # Bowel Movements 0 Result Diagram: 03/14/17 0501 03/13/17 0621 Objective Remarks General: No acute distress. Heart: Regular rate and rhythm. No murmur. Lungs: Clear to auscultation bilaterally. No wheezes, rales, or rhonchi. Breathing is nonlabored. Abdomen: Soft, nontender, mildly distended. Abdominal binder. Wound dressings in place Extremities: 1+ right lower extremity edema. SCDs. Psych: Alert and oriented. Procedures 03/08/17 partial closure of wound for hemostasis A/P Problem List: (1) Anemia ICD Code: D64.9 Status: Acute (2) Seizure disorder ICD Code: G40.909 Status: Chronic (3) Hypothyroidism ICD Code: E03.9 Status: Chronic (4) Thrombocytopenia ICD Code: D69.6 Status: Acute (5) Diarrhea ICD Code: R19.7 Status: Acute (6) C. difficile diarrhea ICD Code: A04.7 Status: Acute Assessment and Plan 1. Anemia secondary to acute blood loss: Hemoglobin slightly improved following transfusion. Has received a total of 3 units PRBCs. Appreciate hematology recommendations. Hemoglobin stable at 9.2. Cleared by oncology for discharge. 2. Large cutaneous hemangioma: This is the source of bleeding. Status post partial closure by general surgery. No active bleeding reported by nursing. Cleared by general surgery for discharge. 3. Hypotension, early hemorrhagic shock, tachycardia: Resolved. Vital signs remain stable. 4. Seizure disorder: Continue phenobarbital, Dilantin, Neurontin. 5. Hypothyroidism: Continue levothyroxine. 6. Thrombocytopenia: Likely consumptive. Appreciate hematology recommendations. 7. C. difficile: Continue Flagyl. Appreciate infectious disease recommendations. Flagyl stop date 03/23/17. 8. DVT prophylaxis: SCDs. Avoid chemical prophylaxis secondary to bleeding, anemia. Discharge Planning Discharge today Problem Qualifiers (1) Anemia: Qualified Code: D62 - Acute posthemorrhagic anemia Jackelin Crespo MD Mar 14, 2017 13:14
[2017-03-14] MEDS ORDERED: METR-1 PO (13:16)
[2017-03-14] MEDS ORDERED: BACI500O2 TOPICAL (13:16)
--- NOTE | 2017-03-14 13:18 | HHI.DS ---
Discharge Summary Admission Date Mar 08, 2017 at 12:46 Discharge Date: Mar 14, 2017 Admitting Diagnosis R flank hemangioma w/ bleeding; anemia; thrombocytopenia (1) Anemia ICD Code: D64.9 Diagnosis: Secondary (2) Seizure disorder ICD Code: G40.909 Diagnosis: Secondary (3) Hypothyroidism ICD Code: E03.9 Diagnosis: Secondary (4) Thrombocytopenia ICD Code: D69.6 Diagnosis: Secondary (5) Diarrhea ICD Code: R19.7 Diagnosis: Secondary (6) C. 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 She has a chronic right sided hemangioma apparently there is some injury to the area with persistent bleeding. Her hemoglobin had dropped to 7 and the patient was tachycardic. She came to the emergency room for further evaluation. Patient has had some abdominal discomfort and reports some distention. She was brought into the emergency room by EMS. Paramedics reported that there was a large amount of clotting in her bed. Patient says she had felt some leaking but thought she had just been incontinent of urine. Last hemoglobin is 11 and again today was 7. Patient received blood transfusion and then admitted to the hospital for bleeding. She has had worsening of her chronic, thrombocytopenia and is recommended for further evaluation. [facility]. For these reasons she has been monitored here in this facility CBC/BMP: 03/14/17 0501 03/13/17 0621 Significant Findings Laboratory Tests Test 03/11/17 03/11/17 03/12/17 03/13/17 14:15 20:12 04:26 06:21 Hemoglobin 8.5 GM/DL 8.9 GM/DL 8.7 GM/DL 9.8 GM/DL (11.6-15.3) (11.6-15.3) (11.6-15.3) (11.6-15.3) Hematocrit 25.5 % 26.4 % 25.2 % 28.4 % (35.0-46.0) (35.0-46.0) (35.0-46.0) (35.0-46.0) Red Blood Count 2.80 MIL/MM3 3.12 MIL/MM3 (4.00-5.30) (4.00-5.30) Platelet Count 129 TH/MM3 147 TH/MM3 (150-450) (150-450) Neutrophils (%) (Auto) 71.3 % 72.6 % (16.0-70.0) (16.0-70.0) Monocytes (%) (Auto) 14.5 % 14.3 % (0.0-8.0) (0.0-8.0) Lymphocytes # (Auto) 0.7 TH/MM3 0.7 TH/MM3 (1.0-4.8) (1.0-4.8) Monocytes # (Auto) 1.0 TH/MM3 1.0 TH/MM3 (0-0.9) (0-0.9) Blood Urea Nitrogen 5 MG/DL (7-18) Creatinine 0.43 MG/DL (0.50-1.00) Random Glucose 109 MG/DL (74-106) Calcium Level 8.0 MG/DL (8.5-10.1) Test 03/14/17 05:01 Red Blood Count 3.25 MIL/MM3 (4.00-5.30) Hemoglobin 9.9 GM/DL (11.6-15.3) Hematocrit 29.7 % (35.0-46.0) Monocytes (%) (Auto) 13.8 % (0.0-8.0) Lymphocytes # (Auto) 0.8 TH/MM3 (1.0-4.8) Imaging Last Impressions Abdomen/Pelvis CT 03/10/17 0000 Signed Impressions: Service Date/Time: Friday, March 10, 2017 16:59 - CONCLUSION: Small left pleural effusion not present previously otherwise not significantly changed and right pelvic musculature and flank area appear larger compared to left side not significantly changed probably engorged related to previously described large collateral varices one of which is thrombosed adjacent to the right iliacus muscle. Saul Marie MD PE at Discharge General: No acute distress. Heart: Regular rate and rhythm. No murmur. Lungs: Clear to auscultation bilaterally. No wheezes, rales, or rhonchi. Breathing is nonlabored. Abdomen: Soft, nontender, mildly distended. Abdominal binder. Wound dressings in place Extremities: 1+ right lower extremity edema. SCDs. Psych: Alert and oriented. Hospital Course Patient is a 61-year-old female who had come to the emergency room overnight after significant bleeding occurred at her rehabilitation facility. She has a chronic right sided hemangioma apparently there is some injury to the area with persistent bleeding. Her hemoglobin had dropped to 7 and the patient was tachycardic. She received total of 3 units packed red blood cells. Pathology was consulted. For large cutaneous hemangioma, general surgery was consulted, partial closure was done. After transfusion 7 is aeration, patient's blood pressure remained stable. Thrombocytopenia likely consumptive per hematology. She was cleared by hematology and general surgery for discharge. She will continue Flagyl for C. difficile until 03/23/17 Pt Condition on Discharge: Good Discharge Disposition: Discharge to SNF Discharge Time: > 30 minutes Discharge Instructions DIET: Follow Instructions for: Heart Healthy Diet Activities you can perform: Regular-No Restrictions Follow up Referrals: Surgical - 10 Days with Jeremiah Clemente MD New Medications: Bacitracin Topical (Bacitracin Topical) 500 Unit/Gm Oint 1 APPLIC TOPICAL Q12HR wound #1 TUBE Metronidazole (Flagyl) 500 Mg Tab 500 MG PO Q6HR wound Days 9 TAB Continued Medications: Acetaminophen (Eq Acetaminophen) 325 Mg Tab 650 MG PO Q4H PRN TEMP > 100.4 #90 TAB Alendronate (Fosamax) 70 Mg Tab 70 MG PO Q7D Osteoporosis Treatment #4 Ref 0 TAB Ascorbic Acid (Vitamin C) 250 Mg Chew 500 MG CHEW BID Nutritional Supplement #60 Ref 0 TAB Calcium Carbonate (Calcium Carbonate) 1,500 Mg Tab 1500 MG PO DAILY 1,500 mg calcium carbonate (600 mg elemental calcium) Calcium Supplement Ref 0 TAB Cholecalciferol (Vitamin D3) 1,000 Unit Cap 1000 UNITS PO DAILY Nutritional Supplement #1 Ref 0 BOTTLE Cyanocobalamin (Vitamin B-12) 1,000 Mcg Tab 1000 MCG PO DAILY Nutritional Supplement #1 Ref 0 BOTTLE Docusate Sodium (Stool Softener Extra Strength) 250 Mg Cap 250 MG PO DAILY PRN CONSTIPATION CAP Gabapentin (Neurontin) 100 Mg Cap 100 MG PO TID #90 Ref 0 CAP Levothyroxine (Levothyroxine) 75 Mcg Tab 75 MCG PO DAILY Thyroid #30 Ref 0 TAB Magnesium Citrate (Magnesium Citrate) 100 Mg Tab 296 ML PO DAILY Ref 0 TAB Meloxicam (Mobic) 7.5 Mg Tab 7.5 MG PO DAILY Pain Ref 0 TAB Metoprolol Tartrate (Lopressor) 50 Mg Tab 12.5 MG PO BID #30 Ref 0 TAB Multiple Vitamin (Multiple Vitamin) 1 Tab 1 TAB PO DAILY Nutritional Supplement Ref 0 TAB Omeprazole (Omeprazole) 20 Mg Tab 20 MG PO DAILY #30 Ref 0 TAB Phenobarbital (Phenobarbital) 30 Mg Tab 30 MG PO BID Control Seizures #60 Ref 0 TAB Phenytoin Extended (Dilantin) 100 Mg Cap 300 MG PO BID Control Seizures #270 Ref 0 CAP Polyethylene Glycol 3350 Powder (Polyethylene Glycol 3350 Powder) 17 Gm Pow 17 GM PO DAILY Constipation #1 Ref 0 BOTTLE Sennosides-Docusate Sodium (Senna-Plus) 8.6-50 Mg Tab 2 TAB PO DAILY Constipation Ref 0 TAB Discontinued Medications: Phenytoin Extended (Dilantin) 100 Mg Cap 200 MG PO DAILY Control Seizures #180 Ref 0 CAP Jackelin Crespo MD Mar 14, 2017 13:18
--- NOTE | 2017-03-14 15:13 | HHI.PR ---
Subjective Subjective Notes Resting in bed No issues Kadie RN at bedside Objective Vitals/I&O Vital Signs Date Time Temp Pulse Resp B/P Pulse Ox O2 Delivery O2 Flow Rate FiO2 03/14/17 12:00 97.6 102 17 162/73 94 03/12/17 07:31 Nasal Cannula 2.00 03/10/17 19:22 21 Labs Laboratory Tests Test 03/14/17 05:01 White Blood Count 5.8 Red Blood Count 3.25 Hemoglobin 9.9 Hematocrit 29.7 Mean Corpuscular Volume 91.3 Mean Corpuscular Hemoglobin 30.5 Mean Corpuscular Hemoglobin 33.4 Concent Red Cell Distribution Width 15.4 Platelet Count 153 Mean Platelet Volume 7.4 Neutrophils (%) (Auto) 69.4 Lymphocytes (%) (Auto) 13.8 Monocytes (%) (Auto) 13.8 Eosinophils (%) (Auto) 2.5 Basophils (%) (Auto) 0.5 Neutrophils # (Auto) 4.0 Lymphocytes # (Auto) 0.8 Monocytes # (Auto) 0.8 Eosinophils # (Auto) 0.1 Basophils # (Auto) 0.0 CBC Comment DIFF FINAL Differential Comment Cardiovascular: Regular Lungs: Clear Abdomen: Non-distended, Non-tender Narrative Exam Hemangioma with open area--- dressing changed no bleeding A/P Assessment and Plan 61 year old female with large cutaneous hemangioma s/p partial closure for hemostasis -Hmg stable -No signs of bleeding and VSS (no hypotension or tachycardia) -Continue to monitor clinically and labs -Tolerating regular diet -GS clear for DC -Dressing changes ordered -Follow up with Dr. Clemente in about 2 weeks Niecy Mauro Mar 14, 2017 15:13
== END 2017-03-14 15:56 | DRG 580 ==
LOC: PHED 03:45 → PHEDA 05:51 → PH3B 06:49 → OBSVTOIN 03-08 12:46 → PHICU 03-09 06:00 → N03B 03-09 09:29 → N07B 03-12 16:44
PROVIDERS: ADMIT Hospitalist; ATTEND Hospitalist
PROC: 30233N1 Transfusion of Nonautologous Red Blood Cells into Peripheral Vein, Percutaneous Approach (ICD-10-PCS; 2017-03-07)
PROC: 0JQ70ZZ Repair Back Subcutaneous Tissue and Fascia, Open Approach (ICD-10-PCS; principal; 2017-03-08)
DX: D18.01 Hemangioma of skin and subcutaneous tissue (principal); R57.9 Shock, unspecified; L89.109 Pressure ulcer of unspecified part of back, unspecified stage; D69.59 Other secondary thrombocytopenia; A04.7 Enterocolitis due to Clostridium difficile; D62 Acute posthemorrhagic anemia; M41.9 Scoliosis, unspecified; G62.9 Polyneuropathy, unspecified; Q87.2 Congenital malformation syndromes predominantly involving limbs; E03.9 Hypothyroidism, unspecified; G40.909 Epilepsy, unspecified, not intractable, without status epilepticus; M19.90 Unspecified osteoarthritis, unspecified site; D73.4 Cyst of spleen; D17.9 Benign lipomatous neoplasm, unspecified; R00.0 Tachycardia, unspecified; K59.09 Other constipation; I86.8 Varicose veins of other specified sites; S32.10XD Unspecified fracture of sacrum, subsequent encounter for fracture with routine healing; S32.009D Unspecified fracture of unspecified lumbar vertebra, subsequent encounter for fracture with routine healing
CPT/HCPCS: 36430; 74177; 80048; 80053; 80185; 82607; 82728; 82746; 83540; 83550; 83735; 85014; 85018; 85025; 85027; 85384; 85610; 85730; 86850; 86900; 86901; 86920; 87493; 87641; G0378; G8987-GP; G8988-GP; J1756; J7050; L0200; L0484; P9016; Q2009; Q9963; Q9967

== ENCOUNTER 2017-03-15 12:05 | Emergency (ER) | payer MEDICARE, OTHER ==
[~2017-03-15 12:05] MED LIST changes: +BACI500O2 TOPICAL; -HYDR-3516 PO; +MAGN100T2 PO; +METO-309 PO; +METR-1 PO; +MOBI7.5T PO; +NEUR100C PO; +OMEP20TA PO; +POLY17S PO; +SENN1TAB PO; +VITA10002 PO; +VITA250C3 CHEW
[2017-03-15 12:20] VITALS: BP 120/55; PULSE 96; RESP 18; TEMP 98.4; O2SAT 94
[2017-03-15] MEDS ORDERED: LIDOCAINE 1%/EPINEPHrine 1:100,000 SOLN 30 ML VIAL ONE (12:30)
[2017-03-15] MEDS ORDERED: LIDOCAINE 1%/EPINEPHrine 1:100,000 SOLN 20 ML VIAL INFIL ONE (12:30)
[2017-03-15 12:42] VITALS: BP 120/55; PULSE 100; RESP 18; TEMP 98.4; O2SAT 93
--- NOTE | 2017-03-15 13:06 | PD ---
HPI Chief Complaint: Skin Problem Time Seen by Provider: 13:03 Travel History International Travel<30 days: No Contact w/Intl Traveler<30days: No Traveled to known affect area: No History of Present Illness HPI 61-year-old female that presents to the ED via ambulance for evaluation of bleeding from a hemangioma. Patient has a history of chronic wound to the left buttocks and had a bleeding from this less than a week ago. Patient was actually discharged as a couple days ago. Patient had to have transfusions secondary to significant bleeding. Patient had suturing placed by Dr. Lainez. For the most per the bleeding was controlled but apparently today they were doing is unchanged and the bleeding started and the current stop and so she was brought here. She denies any other symptoms. She was found on her last admission to have low platelets. She denies any pain. She denies any fevers chills or sweats. No other symptoms reported. Per ED nurse report there was significant amount of blood on the gauze and the wrapping the patient had. PFSH Past Medical History Arthritis: Yes Anxiety: No Depression: No Cancer: No Cardiovascular Problems: No (bleeding issues with this admission ) Cerebrovascular Accident: No Diabetes: No Diminished Hearing: No Endocrine: Yes Gastrointestinal Disorders: Yes (chronic constipation on and off -a year ago october ) Genitourinary: No Headaches: No Hepatitis: No Hiatal Hernia: No Hypertension: No (takes metoprolol ) Immune Disorder: No Medical other: No Musculoskeletal: Yes (SCOLIOSIS) Neurologic: Yes (epileptic-takes meds for ) Psychiatric: No Reproductive: No Respiratory: Yes (staes she has 57% of her lungs from scoliosis) Migraines: No Seizures: Yes Thyroid Disease: Yes (hypo ) ?: Not Menopausal: Yes Past Surgical History Abdominal Surgery: No AICD: No Body Medical Devices: JIM RODS IN BACK Cardiac Surgery: No Ear Surgery: Yes (tube in right ear) Endocrine Surgery: No Eye Surgery: Yes (BILATERAL CATARACTS) Genitourinary Surgery: No Gynecologic Surgery: No Joint Replacement: No Neurologic Surgery: No Oral Surgery: Yes (tonsilectomy ) Pacemaker: No Thoracic Surgery: No Tympanostomy Tube: Yes Other Surgery: Yes Social History Alcohol Use: No Tobacco Use: No Substance Use: No Allergies-Medications (Allergen,Severity, Reaction): Coded Allergies: Coconut (Verified Allergy, Severe, Anaphylaxis, 03/15/17) Pea (Verified Allergy, Severe, Anaphylaxis, 03/15/17) Achromycin V (Verified Allergy, Unknown, 03/15/17) Erythromycin (Verified Allergy, Unknown, 03/15/17) *MDRO Multi-Drug Resistant Organism (Verified Adverse Reaction, Unknown, MRSA, 03/15/17) MRSA screen (nares) POSITIVE - 03/09/17 Reported Meds & Prescriptions Reported Meds & Active Scripts Active Flagyl (Metronidazole) 500 Mg Tab 500 Mg PO Q6HR 9 Days Bacitracin Topical 500 Unit/Gm Oint 1 Applic TOPICAL Q12HR Eq Acetaminophen (Acetaminophen) 325 Mg Tab 650 Mg PO Q4H PRN Reported Senna-Plus (Sennosides-Docusate Sodium) 8.6-50 Mg Tab 2 Tab PO DAILY Polyethylene Glycol 3350 Powder (Polyethylene Glycol) 17 Gm Pow 17 Gm PO DAILY Lopressor (Metoprolol Tartrate) 50 Mg Tab 12.5 Mg PO BID Vitamin C (Ascorbic Acid) 250 Mg Chew 500 Mg CHEW BID Magnesium Citrate 100 Mg Tab 296 Ml PO DAILY Omeprazole 20 Mg Tab 20 Mg PO DAILY Vitamin B-12 (Cyanocobalamin) 1,000 Mcg Tab 1,000 Mcg PO DAILY Mobic (Meloxicam) 7.5 Mg Tab 7.5 Mg PO DAILY Neurontin (Gabapentin) 100 Mg Cap 100 Mg PO TID Phenobarbital 30 Mg Tab 30 Mg PO BID Multiple Vitamin 1 Tab 1 Tab PO DAILY Calcium Carbonate 1,500 Mg Tab 1,500 Mg PO DAILY 1,500 mg calcium carbonate (600 mg elemental calcium) Stool Softener Extra Strength (Docusate Sodium) 250 Mg Cap 250 Mg PO DAILY PRN Vitamin D3 (Cholecalciferol) 1,000 Unit Cap 1,000 Units PO DAILY Fosamax (Alendronate Sodium) 70 Mg Tab 70 Mg PO Q7D Dilantin (Phenytoin Extended) 100 Mg Cap 300 Mg PO BID Levothyroxine (Levothyroxine Sodium) 75 Mcg Tab 75 Mcg PO DAILY Review of Systems Except as stated in HPI: all other systems reviewed are Neg Physical Exam Narrative GENERAL: SKIN: Warm and dry. HEAD: Atraumatic. Normocephalic. EYES: Pupils equal and round. No scleral icterus. No injection or drainage. ENT: No nasal bleeding or discharge. Mucous membranes pink and moist. Tongue is midline. No uvula deviation. NECK: Trachea midline. No JVD. CARDIOVASCULAR: Regular rate and rhythm. RESPIRATORY: No accessory muscle use. Clear to auscultation. Breath sounds equal bilaterally. GASTROINTESTINAL: Abdomen soft, non-tender, nondistended. Hepatic and splenic margins not palpable. MUSCULOSKELETAL: Extremities without clubbing, cyanosis, or edema. No obvious deformities. Full range of motion of the upper and lower extremities bilaterally. Patient has a healing wound on the left buttocks has a very small bleeder. Clear itself is less than 2 mm in diameter. Actively bleeding almost pulsating. NEUROLOGICAL: Awake and alert. No obvious cranial nerve deficits. Motor grossly within normal limits. Five out of 5 muscle strength in the arms and legs. Normal speech. PSYCHIATRIC: Appropriate mood and affect; insight and judgment normal. Data Data Last Documented VS Vital Signs Date Time Temp Pulse Resp B/P Pulse Ox O2 Delivery O2 Flow Rate FiO2 03/15/17 12:42 96 20 03/15/17 12:42 98.4 120/55 93 Room Air Orders Complete Blood Count With Diff (03/15/17 12:25) Basic Metabolic Panel (Bmp) (03/15/17 12:25) Prothrombin Time / Inr (Pt) (03/15/17 12:25) Act Partial Throm Time (Ptt) (03/15/17 12:25) Magnesium (Mg) (03/15/17 12:25) Type And Screen (03/15/17 12:25) Iv Access Insert/Monitor (03/15/17 12:25) Lidocai-Epi 1%-1:100,000 Inj (Xylocaine- (03/15/17 12:30) Lidocai-Epi 1%-1:100,000 Inj (Xylocaine- (03/15/17 12:30) Labs Laboratory Tests Test 03/15/17 12:50 White Blood Count 10.6 TH/MM3 Red Blood Count 3.24 MIL/MM3 Hemoglobin 10.3 GM/DL Hematocrit 29.3 % Mean Corpuscular Volume 90.5 FL Mean Corpuscular Hemoglobin 31.7 PG Mean Corpuscular Hemoglobin 35.0 % Concent Red Cell Distribution Width 15.6 % Platelet Count 191 TH/MM3 Mean Platelet Volume 7.6 FL Neutrophils (%) (Auto) 77.1 % Lymphocytes (%) (Auto) 9.3 % Monocytes (%) (Auto) 11.8 % Eosinophils (%) (Auto) 1.1 % Basophils (%) (Auto) 0.7 % Neutrophils # (Auto) 8.1 TH/MM3 Lymphocytes # (Auto) 1.0 TH/MM3 Monocytes # (Auto) 1.3 TH/MM3 Eosinophils # (Auto) 0.1 TH/MM3 Basophils # (Auto) 0.1 TH/MM3 CBC Comment DIFF FINAL Differential Comment Prothrombin Time 13.3 SEC Prothromb Time International 1.2 RATIO Ratio Activated Partial 25.4 SEC Thromboplast Time Sodium Level 136 MEQ/L Potassium Level 3.9 MEQ/L Chloride Level 98 MEQ/L Carbon Dioxide Level 30.0 MEQ/L Anion Gap 8 MEQ/L Blood Urea Nitrogen 4 MG/DL Creatinine 0.41 MG/DL Estimat Glomerular Filtration 158 ML/MIN Rate Random Glucose 102 MG/DL Calcium Level 7.8 MG/DL Magnesium Level 1.7 MG/DL MDM Medical Decision Making Medical Screen Exam Complete: Yes Emergency Medical Condition: Yes Medical Record Reviewed: Yes Interpretation(s) CBC Diagram 03/15/17 12:50 BMP Diagram 03/15/17 12:50 Differential Diagnosis Denny-angioma versus active bleeding versus wound bleeding Narrative Course 61-year-old female is here for bleeding. Patient was properly examined and was found to have signs and symptoms consistent with bleeding from the wound. After explaining procedure to the patient and she agreed to it bleeding was stopped using sutures. Please refer to my procedure note. Bleeding was completely stopped.. Patient had dressings put in place. Labs were done as patient does have a history of recent anemia with blood transfusion. Blood here show no sign of acute disease. This time believe that the patient can go home with close follow-up with PCP. See ED if worsening symptoms. Patient agrees with this plan. Case was discussed with Dr. Hand who agrees with discharge. Procedures Procedure Narrative LACERATION LOCATION: left buttocks LENGTH: small 2 mm arterial bleed NUMBER OF STITCHES/YVONNE: 4 sutures REPAIR: The area of the laceration was prepped with Betadine and sterilely draped. The laceration was infiltrated with 1% Xylocaine. The wound was copiously irrigated and explored without evidence of foreign body, tendon injury or neuro injury. She does have a small arterial bleed. The wound and arterial bleed was closed and stopped using 3-0- Prolene for 4 horizontal mattresses. This was a 1 layer repair. A sterile dressing was applied. The patient was advised to keep the dressing clean and dry. Patient tolerated the procedure well. 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 See ED for any worsening symptoms. Ice to the area. Sutures to come off in 14 days. Change dressings daily with nonstick dressings. Med/Other Pt SpecificInfo: No Change to Meds Disposition: 01 DISCHARGE HOME Condition: Stable Andrew Guo Mar 15, 2017 13:06
[2017-03-15 13:10] LABS: AUTOMATED NEUTROPHIL # 8.1 TH/MM3 (1.8-7.7); BASOPHIL # 0.1 TH/MM3 (0-0.2); BASOPHIL % 0.7 % (0.0-2.0); EOSINOPHIL # 0.1 TH/MM3 (0-0.4); EOSINOPHIL % 1.1 % (0.0-4.0); HEMATOCRIT 29.3 % (35.0-46.0); HEMO FLAGS DIFF FINAL; LYMPH % 9.3 % (9.0-44.0); MEAN CELL VOLUME 90.5 FL (80.0-100.0); MEAN CORPUSCULAR HEMOGLOBIN 31.7 PG (27.0-34.0); MONO % 11.8 % (0.0-8.0); NEUT % 77.1 % (16.0-70.0); PLATELET COUNT 191 TH/MM3 (150-450); RED BLOOD COUNT 3.24 MIL/MM3 (4.00-5.30); RED CELL DISTRIBUTION WIDTH 15.6 % (11.6-17.2); WHITE BLOOD COUNT 10.6 TH/MM3 (4.0-11.0)
[2017-03-15 13:20] LABS: APTT (PATIENT) 25.4 SEC (24.3-30.1); INTERNATIONAL NORMALIZED RATIO 1.2 RATIO; PROTHROMBIN TIME - PATIENT 13.3 SEC (9.8-11.6)
[2017-03-15 13:31] LABS: MAGNESIUM 1.7 MG/DL (1.5-2.5); POTASSIUM 3.9 MEQ/L (3.5-5.1)
== END 2017-03-15 16:26 | disposition home or self-care (01) ==
LOC: NEPC 12:05
DX: D18.01 Hemangioma of skin and subcutaneous tissue (principal); M19.90 Unspecified osteoarthritis, unspecified site; G40.909 Epilepsy, unspecified, not intractable, without status epilepticus; K59.00 Constipation, unspecified
CPT/HCPCS: 12001; 80048; 83735; 85025; 85610; 85730; 86850; 86900; 86901

== ENCOUNTER 2017-03-22 06:16 | Emergency (ER) | payer MEDICARE, OTHER ==
[~2017-03-22] VITALS: Ht 162.6 cm; Wt 76.4 kg
[2017-03-22 06:45] VITALS: BP 122/53; PULSE 88; RESP 18; TEMP 98.3; O2SAT 96
[2017-03-22 07:05] VITALS: BP 122/53; PULSE 90; RESP 18; O2SAT 96
[2017-03-22 07:11] LABS: AUTOMATED NEUTROPHIL # 6.9 TH/MM3 (1.8-7.7); BASOPHIL # 0.1 TH/MM3 (0-0.2); EOSINOPHIL # 0.1 TH/MM3 (0-0.4); EOSINOPHIL % 1.4 % (0.0-4.0); HEMATOCRIT 32.7 % (35.0-46.0); HEMO FLAGS DIFF FINAL; LYMPH % 8.7 % (9.0-44.0); LYMPHOCYTE # 0.8 TH/MM3 (1.0-4.8); MEAN CELL VOLUME 91.4 FL (80.0-100.0); MEAN CORPUSCULAR HEMOGLOBIN 29.6 PG (27.0-34.0); MEAN CORPUSCULAR HGB CONC 32.5 % (32.0-36.0); MONO % 12.2 % (0.0-8.0); NEUT % 76.7 % (16.0-70.0); PLATELET COUNT 255 TH/MM3 (150-450); RED BLOOD COUNT 3.57 MIL/MM3 (4.00-5.30); RED CELL DISTRIBUTION WIDTH 15.4 % (11.6-17.2)
[2017-03-22] MEDS ORDERED: TAB-TAB (07:15)
[2017-03-22] MEDS ORDERED: SODI1TAB PO (07:15)
[2017-03-22] MEDS ORDERED: ANTA500C CHEW (07:15)
[2017-03-22] MEDS ORDERED: CALCTAB25 (07:15)
[2017-03-22] MEDS ORDERED: CALC1TAB42 PO (07:15)
[2017-03-22 07:18] LABS: POTASSIUM 4.1 MEQ/L (3.5-5.1)
[2017-03-22 07:21] LABS: BICARBONATE 30.9 MEQ/L (21.0-32.0)
[2017-03-22 07:22] LABS: APTT (PATIENT) 26.8 SEC (24.3-30.1); INTERNATIONAL NORMALIZED RATIO 1.1 RATIO
--- NOTE | 2017-03-22 07:24 | PD ---
HPI Chief Complaint: Bleeding Time Seen by Provider: 07:18 Travel History International Travel<30 days: No Contact w/Intl Traveler<30days: No Traveled to known affect area: No History of Present Illness HPI 61-year-old female presents to the emergency department from a local long term in rehabilitation for evaluation and management of bleeding from a large right flank cutaneous hemangioma. Patient has been seen in the emergency department several times recently and hospitalized for bleeding from the site. Patient is bedbound. Patient sustained injury due to L4 fracture sustained secondary to a fall January 2017. Patient was subsequently placed in a TLSO brace and developed an abrasion/ulceration lesion. Patient is no longer use the TLSO brace but continues to have issues at the hemangioma site at the ulceration site. Patient has had hospitalization for significant blood loss secondary to bleeding from the site requiring blood transfusion and was seen by general surgery for partial closure of the site with suturing. Patient remained stable and was discharged back to the rehabilitation facility only to have recurrent bleeding and was sent to [facility] where the site was bleeding and sutures are again placed. Patient has been stable since that time until we bleeding this morning. Upon arrival to the emergency department there was scant oozing from the site no active bleeding and patient voicing no concerns or complaints and denying any pain. PFSH Past Medical History Narrative Medical Bleeding flank cutaneous hemangioma; L4 fracture; scoliosis; seizure; hypothyroidism; back surgery with Jim rods; bilateral lower leg surgery; no tobacco use no alcohol use; nursing notes reviewed Arthritis: Yes Anxiety: No Depression: No Cancer: No Cardiovascular Problems: Yes (bleeding issues with this admission ) Cerebrovascular Accident: No Diabetes: No Diminished Hearing: No Endocrine: Yes Gastrointestinal Disorders: Yes (chronic constipation on and off -a year ago october ) Genitourinary: No Headaches: No Hepatitis: No Hiatal Hernia: No Immune Disorder: No Musculoskeletal: Yes (SCOLIOSIS) Neurologic: Yes (epileptic-takes meds for ) Psychiatric: No Reproductive: No Respiratory: Yes (staes she has 57% of her lungs from scoliosis) Migraines: No Seizures: Yes Thyroid Disease: Yes (hypo ) ?: Not Menopausal: Yes Past Surgical History Abdominal Surgery: No AICD: No Body Medical Devices: JIM RODS IN BACK Cardiac Surgery: No Ear Surgery: Yes (tube in right ear) Endocrine Surgery: No Eye Surgery: Yes (BILATERAL CATARACTS) Genitourinary Surgery: No Gynecologic Surgery: No Joint Replacement: No Neurologic Surgery: No Oral Surgery: Yes (tonsilectomy ) Pacemaker: No Thoracic Surgery: No Tonsillectomy: Yes Tympanostomy Tube: Yes Other Surgery: Yes Social History Alcohol Use: No Tobacco Use: No Substance Use: No Allergies-Medications (Allergen,Severity, Reaction): Coded Allergies: Coconut (Verified Allergy, Severe, Anaphylaxis, 03/22/17) Pea (Verified Allergy, Severe, Anaphylaxis, 03/22/17) Achromycin V (Verified Allergy, Unknown, 03/22/17) Erythromycin (Verified Allergy, Unknown, 03/22/17) *MDRO Multi-Drug Resistant Organism (Verified Adverse Reaction, Unknown, MRSA, 03/22/17) MRSA screen (nares) POSITIVE - 03/09/17 Reported Meds & Prescriptions Reported Meds & Active Scripts Active Flagyl (Metronidazole) 500 Mg Tab 500 Mg PO Q6HR 9 Days Eq Acetaminophen (Acetaminophen) 325 Mg Tab 650 Mg PO Q4H PRN Reported Calcium 500+D (Calcium Carbonate-Cholecalciferol) 500-200 Mg-Unit Tab 1 Tab PO TID Calcium 500 + Vit D Caplet (Calcium Carbonate/Vitamin D3) 1 Each Tablet Tab-A-Rich (Multiple Vitamin) 1 Tab Tab Antacid (Calcium Carbonate (Antacid)) 500 Mg Chew 500 Mg CHEW BID PRN Sodium Chloride 1 Gm Tab 1 Gm PO DAILY Senna-Plus (Sennosides-Docusate Sodium) 8.6-50 Mg Tab 2 Tab PO DAILY Polyethylene Glycol 3350 Powder (Polyethylene Glycol) 17 Gm Pow 17 Gm PO DAILY Lopressor (Metoprolol Tartrate) 50 Mg Tab 12.5 Mg PO BID Vitamin C (Ascorbic Acid) 250 Mg Chew 500 Mg CHEW BID Omeprazole 20 Mg Tab 20 Mg PO DAILY Vitamin B-12 (Cyanocobalamin) 1,000 Mcg Tab 1,000 Mcg PO DAILY Mobic (Meloxicam) 7.5 Mg Tab 7.5 Mg PO DAILY Neurontin (Gabapentin) 100 Mg Cap 100 Mg PO TID Phenobarbital 30 Mg Tab 32.4 Mg PO BID Calcium Carbonate 1,500 Mg Tab 1,500 Mg PO DAILY 1,500 mg calcium carbonate (600 mg elemental calcium) Stool Softener Extra Strength (Docusate Sodium) 250 Mg Cap 250 Mg PO DAILY PRN Vitamin D3 (Cholecalciferol) 1,000 Unit Cap 1,000 Units PO DAILY Fosamax (Alendronate Sodium) 70 Mg Tab 70 Mg PO Q7D Dilantin (Phenytoin Extended) 100 Mg Cap 300 Mg PO BID Levothyroxine (Levothyroxine Sodium) 75 Mcg Tab 75 Mcg PO DAILY Review of Systems Except as stated in HPI: all other systems reviewed are Neg Physical Exam Narrative GENERAL: Well-developed well nourished pleasant female in no acute distress no respiratory distress animatedly conversational. SKIN: Warm and dry. Large right flank cutaneous hemangioma with area of ulceration 7.5 cm x 2.5 cm without active bleeding although small area of scant use. HEAD: Normocephalic. EYES: No scleral icterus. No injection or drainage. NECK: Supple, trachea midline. No JVD or lymphadenopathy. CARDIOVASCULAR: Regular rate and rhythm without murmurs, gallops, or rubs. RESPIRATORY: Breath sounds equal bilaterally. No accessory muscle use. GASTROINTESTINAL: Abdomen soft, non-tender, nondistended. MUSCULOSKELETAL: No cyanosis, or edema. BACK: Nontender without obvious deformity. No CVA tenderness. Data Data Last Documented VS Vital Signs Date Time Temp Pulse Resp B/P Pulse Ox O2 Delivery O2 Flow Rate FiO2 03/22/17 07:05 96 Room Air 03/22/17 07:05 90 18 122/53 03/22/17 06:45 98.3 Orders Complete Blood Count With Diff (03/22/17 06:36) Act Partial Throm Time (Ptt) (03/22/17 06:36) Prothrombin Time / Inr (Pt) (03/22/17 06:36) Type And Screen (03/22/17 06:36) Basic Metabolic Panel (Bmp) (03/22/17 06:36) Labs Laboratory Tests Test 03/22/17 07:00 White Blood Count 9.0 TH/MM3 Red Blood Count 3.57 MIL/MM3 Hemoglobin 10.6 GM/DL Hematocrit 32.7 % Mean Corpuscular Volume 91.4 FL Mean Corpuscular Hemoglobin 29.6 PG Mean Corpuscular Hemoglobin 32.5 % Concent Red Cell Distribution Width 15.4 % Platelet Count 255 TH/MM3 Mean Platelet Volume 7.1 FL Neutrophils (%) (Auto) 76.7 % Lymphocytes (%) (Auto) 8.7 % Monocytes (%) (Auto) 12.2 % Eosinophils (%) (Auto) 1.4 % Basophils (%) (Auto) 1.0 % Neutrophils # (Auto) 6.9 TH/MM3 Lymphocytes # (Auto) 0.8 TH/MM3 Monocytes # (Auto) 1.1 TH/MM3 Eosinophils # (Auto) 0.1 TH/MM3 Basophils # (Auto) 0.1 TH/MM3 CBC Comment DIFF FINAL Differential Comment MDM Medical Decision Making Medical Screen Exam Complete: Yes Emergency Medical Condition: Yes Medical Record Reviewed: Yes Differential Diagnosis Anemia, thrombocytopenia, bleeding at wound site Narrative Course Area was evaluated and no active bleeding at this time no pulsatile bleeding. Small area of scant is was noted therefore quick clot was applied to the area a Polysporin non-adhesive dressing was applied to the site ice pack was placed underneath the patient and patient was placed supine for direct pressure to the site. Specimens collected for CBC Coagulation studies type and screen as patient has required transfusion after significant bleeding from the site. Quantity from nursing facility not provided by nursing facility EMS or patient. 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
[2017-03-22] MEDS ORDERED: SODIUM CHLORID 0.9% 500 ML INJ 500 ML IV ONE (07:30)
--- NOTE | 2017-03-22 07:54 | PD ---
Physical Exam Date Seen by Provider: Mar 22, 2017 Time Seen by Provider: 07:00 Narrative Patient signed out to me by Dr. Ritter is 7 AM, please see Dr. Ritter's note for further details. Awaiting lab work for H&H. Bleeding has been controlled and patient did not have further bleeding while observed in the ER. Laboratory Tests Test 03/22/17 07:00 Red Blood Count 3.57 MIL/MM3 (4.00-5.30) Hemoglobin 10.6 GM/DL (11.6-15.3) Hematocrit 32.7 % (35.0-46.0) Neutrophils (%) (Auto) 76.7 % (16.0-70.0) Lymphocytes (%) (Auto) 8.7 % (9.0-44.0) Monocytes (%) (Auto) 12.2 % (0.0-8.0) Lymphocytes # (Auto) 0.8 TH/MM3 (1.0-4.8) Monocytes # (Auto) 1.1 TH/MM3 (0-0.9) Prothrombin Time 12.0 SEC (9.8-11.6) Sodium Level 127 MEQ/L (136-145) Chloride Level 90 MEQ/L (98-107) Creatinine 0.44 MG/DL (0.50-1.00) Calcium Level 8.0 MG/DL (8.5-10.1) H&H appears to be stable. She is hyponatremic and review of patient's labwork from the group home shows that she has history of this and is being treated with sodium tablets. At this point, my plan would be to give her saline and release her back to facility for further treatment at the facility with primary care physician. Return for new bleeding or new issues as needed with the plan has been discussed with her and she states understanding. Data Data Last Documented VS Vital Signs Date Time Temp Pulse Resp B/P Pulse Ox O2 Delivery O2 Flow Rate FiO2 03/22/17 07:05 96 Room Air 03/22/17 07:05 90 18 122/53 03/22/17 06:45 98.3 Orders Complete Blood Count With Diff (03/22/17 06:36) Act Partial Throm Time (Ptt) (03/22/17 06:36) Prothrombin Time / Inr (Pt) (03/22/17 06:36) Type And Screen (03/22/17 06:36) Basic Metabolic Panel (Bmp) (03/22/17 06:36) Sodium Chlorid 0.9% 500 Ml Inj (Ns 500 M (03/22/17 07:30) Labs Laboratory Tests Test 03/22/17 07:00 White Blood Count 9.0 TH/MM3 Red Blood Count 3.57 MIL/MM3 Hemoglobin 10.6 GM/DL Hematocrit 32.7 % Mean Corpuscular Volume 91.4 FL Mean Corpuscular Hemoglobin 29.6 PG Mean Corpuscular Hemoglobin 32.5 % Concent Red Cell Distribution Width 15.4 % Platelet Count 255 TH/MM3 Mean Platelet Volume 7.1 FL Neutrophils (%) (Auto) 76.7 % Lymphocytes (%) (Auto) 8.7 % Monocytes (%) (Auto) 12.2 % Eosinophils (%) (Auto) 1.4 % Basophils (%) (Auto) 1.0 % Neutrophils # (Auto) 6.9 TH/MM3 Lymphocytes # (Auto) 0.8 TH/MM3 Monocytes # (Auto) 1.1 TH/MM3 Eosinophils # (Auto) 0.1 TH/MM3 Basophils # (Auto) 0.1 TH/MM3 CBC Comment DIFF FINAL Differential Comment Prothrombin Time 12.0 SEC Prothromb Time International 1.1 RATIO Ratio Activated Partial 26.8 SEC Thromboplast Time Sodium Level 127 MEQ/L Potassium Level 4.1 MEQ/L Chloride Level 90 MEQ/L Carbon Dioxide Level 30.9 MEQ/L Anion Gap 6 MEQ/L Blood Urea Nitrogen 12 MG/DL Creatinine 0.44 MG/DL Estimat Glomerular Filtration 145 ML/MIN Rate Random Glucose 96 MG/DL Calcium Level 8.0 MG/DL [facility] Medical Record Reviewed: Yes Supervised Visit with BRAN: No Diagnosis 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
[2017-03-22 08:30] VITALS: BP 143/64; PULSE 92; RESP 18; O2SAT 95
== END 2017-03-22 10:49 ==
LOC: PHED 06:16
DX: D18.01 Hemangioma of skin and subcutaneous tissue (principal); E03.9 Hypothyroidism, unspecified; G40.909 Epilepsy, unspecified, not intractable, without status epilepticus; Z79.899 Other long term (current) drug therapy
CPT/HCPCS: 80048; 85025; 85610; 85730; 86850; 86900; 86901; 96360; 99283; J7040

== ENCOUNTER 2017-03-24 03:46 | Inpatient (IN) | payer MEDICARE, OTHER ==
[2017-03-24] VITALS (8 sets, daily range): BP systolic 108–163; BP diastolic 52–71; PULSE 96–114; RESP 18–24; TEMP 96.4–99.2; O2SAT 93–97
[~2017-03-24] VITALS: Ht 160 cm; Wt 79.9 kg
[~2017-03-24 03:46] MED LIST changes: +ANTA500C CHEW; +CALC1TAB42 PO; +CALCTAB25; +SODI1TAB PO; +TAB-TAB
--- NOTE | 2017-03-24 04:18 | PD ---
HPI Chief Complaint: Bleeding Time Seen by Provider: 03:55 Travel History International Travel<30 days: No Contact w/Intl Traveler<30days: No Traveled to known affect area: No History of Present Illness HPI The patient is a 61-year-old female that has a large hemangioma on her body and has been bleeding from the buttocks on an off since the of last month. She was admitted, given blood and pressure bandages seemed to stop the bleeding. She was here on the and the of this month. On the she had her hemangioma sutured. This did not stop the bleeding. She comes in tonight having bled, according to detention personnel, about 1 pint of blood. This is what they estimated the amount was in the dressings. She has not fainted and is alert and oriented. The patient states she does not want surgery on this. On her last admission the patient was very noncompliant and even refused to have the surgeons look at her. The patient states that she will allow the surgeons to look at her and consider sclerosing this area. The bleeding has been going on intermittently for 2 weeks. PFSH Past Medical History Arthritis: Yes Anxiety: No Depression: No Cancer: No Cardiovascular Problems: Yes (bleeding issues with this admission ) Cerebrovascular Accident: No Diabetes: No Diminished Hearing: No Endocrine: Yes Gastrointestinal Disorders: Yes (chronic constipation on and off -a year ago october ) Genitourinary: No Headaches: No Hepatitis: No Hiatal Hernia: No Hypertension: Yes (takes metoprolol ) Immune Disorder: No Musculoskeletal: Yes (SCOLIOSIS) Neurologic: Yes (epileptic-takes meds for ) Psychiatric: No Reproductive: No Respiratory: Yes (staes she has 57% of her lungs from scoliosis) Migraines: No Seizures: Yes Thyroid Disease: Yes (hypo ) Tetanus Vaccination: Unknown ?: Not Menopausal: Yes Past Surgical History Abdominal Surgery: No AICD: No Body Medical Devices: JIM RODS IN BACK Cardiac Surgery: No Ear Surgery: Yes (tube in right ear) Endocrine Surgery: No Eye Surgery: Yes (BILATERAL CATARACTS) Genitourinary Surgery: No Gynecologic Surgery: No Joint Replacement: No Neurologic Surgery: No Oral Surgery: Yes (tonsilectomy ) Pacemaker: No Thoracic Surgery: No Tonsillectomy: Yes Tympanostomy Tube: Yes Other Surgery: Yes Social History Alcohol Use: No Tobacco Use: No Substance Use: No Allergies-Medications (Allergen,Severity, Reaction): Coded Allergies: Coconut (Verified Allergy, Severe, Anaphylaxis, 03/24/17) Pea (Verified Allergy, Severe, Anaphylaxis, 03/24/17) Achromycin V (Verified Allergy, Unknown, 03/24/17) Erythromycin (Verified Allergy, Unknown, 03/24/17) *MDRO Multi-Drug Resistant Organism (Verified Adverse Reaction, Unknown, MRSA, 03/24/17) MRSA screen (nares) POSITIVE - 03/09/17 Reported Meds & Prescriptions Reported Meds & Active Scripts Active Flagyl (Metronidazole) 500 Mg Tab 500 Mg PO Q6HR 9 Days Eq Acetaminophen (Acetaminophen) 325 Mg Tab 650 Mg PO Q4H PRN Reported Metoprolol Tartrate 25 Mg Tab 25 Mg PO BID Calcium 500+D (Calcium Carbonate-Cholecalciferol) 500-200 Mg-Unit Tab 3 Tab PO DAILY Tab-A-Rich (Multiple Vitamin) 1 Tab Tab Antacid (Calcium Carbonate (Antacid)) 500 Mg Chew 2 Tab CHEW DAILY PRN Sodium Chloride 1 Gm Tab 1 Gm PO DAILY Senna-Plus (Sennosides-Docusate Sodium) 8.6-50 Mg Tab 2 Tab PO DAILY Polyethylene Glycol 3350 Powder (Polyethylene Glycol) 17 Gm Pow 17 Gm PO DAILY Vitamin C (Ascorbic Acid) 250 Mg Chew 500 Mg CHEW BID Omeprazole 20 Mg Tab 20 Mg PO DAILY Vitamin B-12 (Cyanocobalamin) 1,000 Mcg Tab 1,000 Mcg PO DAILY Mobic (Meloxicam) 7.5 Mg Tab 7.5 Mg PO DAILY Neurontin (Gabapentin) 100 Mg Cap 100 Mg PO TID Phenobarbital 30 Mg Tab 32.4 Mg PO BID Stool Softener Extra Strength (Docusate Sodium) 250 Mg Cap 250 Mg PO DAILY PRN Vitamin D3 (Cholecalciferol) 1,000 Unit Cap 1,000 Units PO DAILY Fosamax (Alendronate Sodium) 70 Mg Tab 70 Mg PO Q7D Dilantin (Phenytoin Extended) 100 Mg Cap 300 Mg PO BID Levothyroxine (Levothyroxine Sodium) 75 Mcg Tab 75 Mcg PO DAILY Review of Systems Except as stated in HPI: all other systems reviewed are Neg Physical Exam Narrative GENERAL: The patient is alert, oriented 3 in minimal apparent distress with a bleeding hemangioma. Her vital signs show blood pressure 163/57 with a heart rate of 103 but otherwise normal. SKIN: Focused skin assessment warm/dry. There is a large hematoma present but the right buttocks has bleeding from multiple sites, the blood was squirting out. Focal Pressure stops this bleeding. HEAD: Atraumatic. Normocephalic. EYES: Pupils equal and round. No scleral icterus. No injection or drainage. ENT: No nasal bleeding or discharge. Mucous membranes pink and moist. NECK: Trachea midline. No JVD. CARDIOVASCULAR: Regular rate and rhythm. No murmur appreciated. RESPIRATORY: No accessory muscle use. Clear to auscultation. Breath sounds equal bilaterally. GASTROINTESTINAL: Abdomen soft, non-tender, nondistended. Hepatic and splenic margins not palpable. MUSCULOSKELETAL: No obvious deformities. No clubbing. No cyanosis. No edema. NEUROLOGICAL: Awake and alert. No obvious cranial nerve deficits. Motor grossly within normal limits. Normal speech. PSYCHIATRIC: Appropriate mood and affect; insight and judgment normal. Data Data Last Documented VS Vital Signs Date Time Temp Pulse Resp B/P Pulse Ox O2 Delivery O2 Flow Rate FiO2 03/24/17 04:55 108 18 113/52 95 Room Air 03/24/17 03:50 98.5 Orders Complete Blood Count With Diff (03/24/17 04:10) Comprehensive Metabolic Panel (03/24/17 04:10) Prothrombin Time / Inr (Pt) (03/24/17 04:10) Act Partial Throm Time (Ptt) (03/24/17 04:10) Urinalysis - C+S If Indicated (03/24/17 04:10) Phenytoin (Dilantin) (03/24/17 04:12) Cath For Specimen (03/24/17 04:59) Labs Laboratory Tests Test 03/24/17 03/24/17 04:30 05:15 White Blood Count 10.3 TH/MM3 Red Blood Count 3.07 MIL/MM3 Hemoglobin 9.4 GM/DL Hematocrit 28.3 % Mean Corpuscular Volume 92.1 FL Mean Corpuscular Hemoglobin 30.7 PG Mean Corpuscular Hemoglobin 33.3 % Concent Red Cell Distribution Width 15.5 % Platelet Count 271 TH/MM3 Mean Platelet Volume 6.9 FL Neutrophils (%) (Auto) 74.8 % Lymphocytes (%) (Auto) 9.2 % Monocytes (%) (Auto) 13.5 % Eosinophils (%) (Auto) 1.8 % Basophils (%) (Auto) 0.7 % Neutrophils # (Auto) 7.7 TH/MM3 Lymphocytes # (Auto) 0.9 TH/MM3 Monocytes # (Auto) 1.4 TH/MM3 Eosinophils # (Auto) 0.2 TH/MM3 Basophils # (Auto) 0.1 TH/MM3 CBC Comment DIFF FINAL Differential Comment Prothrombin Time 12.5 SEC Prothromb Time International 1.1 RATIO Ratio Activated Partial 27.0 SEC Thromboplast Time Sodium Level 134 MEQ/L Potassium Level 4.4 MEQ/L Chloride Level 97 MEQ/L Carbon Dioxide Level 31.9 MEQ/L Anion Gap 5 MEQ/L Blood Urea Nitrogen 11 MG/DL Creatinine 0.52 MG/DL Estimat Glomerular Filtration 120 ML/MIN Rate Random Glucose 111 MG/DL Calcium Level 7.7 MG/DL Total Bilirubin 0.3 MG/DL Aspartate Amino Transf 22 U/L (AST/SGOT) Alanine Aminotransferase 17 U/L (ALT/SGPT) Alkaline Phosphatase 148 U/L Total Protein 6.3 GM/DL Albumin 2.6 GM/DL Urine pH 7.0 Urine Protein NEG mg/dL Urine Glucose (UA) NEG mg/dL Urine Ketones NEG mg/dL Urine Occult Blood TRACE Urine Nitrite POS Urine Bilirubin NEG Urine Leukocyte Esterase NEG MDM Medical Decision Making Medical Screen Exam Complete: Yes Emergency Medical Condition: Yes Medical Record Reviewed: Yes Interpretation(s) The complete metabolic profile shows a sodium of 134, alkaline phosphatase of 148, total protein is 6.3 and albumin 2.6 but is otherwise normal. The coagulation profile shows a ProTime of 12.5 and INR 1.1 and a PTT of 27. The CBC shows a hemoglobin of 9.4 and hematocrit of 28.3 but is otherwise normal. The hemoglobin apparently dropped from 10.6 yesterday to 9.4 today. Differential Diagnosis Anemia from blood loss requiring transfusion, hemangioma with active bleeding Narrative Course I discussed the patient the prospect of having laser surgery. This was not available at this hospital, she would probably have to go to [facility] in [place], possibly [place]. She does not want that at this time. She does not want major surgery. The patient needs to be observed to see where her hemoglobin drops after she adjusts to the acute blood loss tonight. Also, she needs to be observed to make sure she doesn't rebleed. Plan: The patient be [address] Horn. Physician Communication Physician Communication I discussed the patient with Drs. Dominguez and Kory. Diagnosis Primary Impression: Bleeding Additional Impression: Acute blood loss anemia Admitting Information Admitting Physician Requests: Observation Romario Delgado MD Mar 24, 2017 04:18
[2017-03-24] MEDS ORDERED: METO25TA3 PO (04:31)
[2017-03-24 04:47] LABS: AUTOMATED NEUTROPHIL # 7.7 TH/MM3 (1.8-7.7); BASOPHIL # 0.1 TH/MM3 (0-0.2); BASOPHIL % 0.7 % (0.0-2.0); EOSINOPHIL # 0.2 TH/MM3 (0-0.4); EOSINOPHIL % 1.8 % (0.0-4.0); HEMATOCRIT 28.3 % (35.0-46.0); HEMO FLAGS DIFF FINAL; LYMPH % 9.2 % (9.0-44.0); LYMPHOCYTE # 0.9 TH/MM3 (1.0-4.8); MEAN CELL VOLUME 92.1 FL (80.0-100.0); MEAN CORPUSCULAR HEMOGLOBIN 30.7 PG (27.0-34.0); MEAN CORPUSCULAR HGB CONC 33.3 % (32.0-36.0); MONO % 13.5 % (0.0-8.0); NEUT % 74.8 % (16.0-70.0); PLATELET COUNT 271 TH/MM3 (150-450); RED BLOOD COUNT 3.07 MIL/MM3 (4.00-5.30); RED CELL DISTRIBUTION WIDTH 15.5 % (11.6-17.2); WHITE BLOOD COUNT 10.3 TH/MM3 (4.0-11.0)
[2017-03-24 05:03] LABS: CHLORIDE 97 MEQ/L (98-107); POTASSIUM 4.4 MEQ/L (3.5-5.1); SODIUM (NA) 134 MEQ/L (136-145)
[2017-03-24 05:07] LABS: INTERNATIONAL NORMALIZED RATIO 1.1 RATIO; PROTHROMBIN TIME - PATIENT 12.5 SEC (9.8-11.6)
[2017-03-24 05:08] LABS: ANION GAP 5 MEQ/L (5-15); BICARBONATE 31.9 MEQ/L (21.0-32.0); BLOOD UREA NITROGEN 11 MG/DL (7-18)
[2017-03-24 05:11] LABS: ALT (GPT) 17 U/L (10-53); AST (GOT) 22 U/L (15-37); GLOMERULAR FILTRATION RATE 120 ML/MIN (>89)
[2017-03-24 05:13] LABS: TOTAL BILIRUBIN ADULT 0.3 MG/DL (0.2-1.0)
[2017-03-24 05:14] LABS: ALKALINE PHOSPHATASE 148 U/L (45-117)
[2017-03-24 05:25] LABS: BLOOD, URINE TRACE (NEG); GLUCOSE,URINE NEG (NEG); KETONE, URINE NEG (NEG)
[2017-03-24 05:27] LABS: NITRITE,URINE POS (NEG)
[2017-03-24 05:37] LABS: METHOD OF COLLECTION CATH; URINE COLOR YELLOW (YELLW/STRAW)
[2017-03-24 05:39] LABS: COMMENT (UR) CULTURE INDICATED; CULTURE IF INDICATED CULTURE INDICATED; RBC, URINE 0-3 /hpf (0-3); SQUAMOUS EPITHELIAL CELL URINE 0-2 /hpf (0-5)
[2017-03-24] MEDS ORDERED: ACETAMINOPHEN 325 MG TAB PO PRN (06:30)
[2017-03-24] MEDS ORDERED: SENNOSIDES 8.6 MG TAB PO PRN (06:30)
[2017-03-24] MEDS ORDERED: ONDANSETRON HCL 4 MG/2 ML VIAL IVP PRN (06:30)
[2017-03-24] MEDS ORDERED: ACETAMINOPHEN 500 MG CPLT PO ONE (06:30)
[2017-03-24] MEDS ORDERED: BISACODYL 10 MG SUPP RECTAL PRN (06:30)
[2017-03-24] MEDS ORDERED: SODIUM CHLORIDE 0.9% FLUSH 10 ML FLUSH IV FLUSH PRN (06:30)
[2017-03-24] MEDS ORDERED: LACTULOSE SYRUP 20 GM/30 ML CUP PO PRN (06:30)
[2017-03-24] MEDS ORDERED: MAGNESIUM HYDROXIDE SUSP 30 ML CUP PO PRN (06:30)
[2017-03-24] MEDS ORDERED: SODIUM CHLOR 0.9% 250 ML INJ 250 ML IV ONE (06:30)
[2017-03-24] MEDS: SODIUM CHLORIDE 0.9% FLUSH 10 ML FLUSH IV FLUSH SCH ×2 (09:00→21:01)
[2017-03-24] MEDS: DOCUSATE SODIUM 50 MG/SENNA 8.6 MG TAB PO SCH ×2 (09:00→21:00)
[2017-03-24 13:11] LABS: HEMATOCRIT 25.6 % (35.0-46.0); REVIEW FLAG FINAL
--- NOTE | 2017-03-24 13:27 | HHI.HP ---
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 The patient has a large hemangioma on the right side and the wound that has been bleeding on and off for the past two weeks. She has required blood transfusion. According to her mother she has had about 5 episodes of active bleeding from the wound. She has had previous sutures in attempts to stop the bleeding. However bleeding always recur. The patient was sent from a retirement after she was noted to be actively bleeding from the wound again. 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 Back surgery Cataracts Ear surgery Reported Medications Reported Meds & Active Scripts Active Flagyl (Metronidazole) 500 Mg Tab 500 Mg PO Q6HR 9 Days Eq Acetaminophen (Acetaminophen) 325 Mg Tab 650 Mg PO Q4H PRN Reported Metoprolol Tartrate 25 Mg Tab 25 Mg PO BID Calcium 500+D (Calcium Carbonate-Cholecalciferol) 500-200 Mg-Unit Tab 3 Tab PO DAILY Tab-A-Rich (Multiple Vitamin) 1 Tab Tab Antacid (Calcium Carbonate (Antacid)) 500 Mg Chew 2 Tab CHEW DAILY PRN Sodium Chloride 1 Gm Tab 1 Gm PO DAILY Senna-Plus (Sennosides-Docusate Sodium) 8.6-50 Mg Tab 2 Tab PO DAILY Polyethylene Glycol 3350 Powder (Polyethylene Glycol) 17 Gm Pow 17 Gm PO DAILY Vitamin C (Ascorbic Acid) 250 Mg Chew 500 Mg CHEW BID Omeprazole 20 Mg Tab 20 Mg PO DAILY Vitamin B-12 (Cyanocobalamin) 1,000 Mcg Tab 1,000 Mcg PO DAILY Mobic (Meloxicam) 7.5 Mg Tab 7.5 Mg PO DAILY Neurontin (Gabapentin) 100 Mg Cap 100 Mg PO TID Phenobarbital 30 Mg Tab 32.4 Mg PO BID Stool Softener Extra Strength (Docusate Sodium) 250 Mg Cap 250 Mg PO DAILY PRN Vitamin D3 (Cholecalciferol) 1,000 Unit Cap 1,000 Units PO DAILY Fosamax (Alendronate Sodium) 70 Mg Tab 70 Mg PO Q7D Dilantin (Phenytoin Extended) 100 Mg Cap 300 Mg PO BID Levothyroxine (Levothyroxine Sodium) 75 Mcg Tab 75 Mcg PO DAILY Allergies: Coded Allergies: Coconut (Verified Allergy, Severe, Anaphylaxis, 03/24/17) Pea (Verified Allergy, Severe, Anaphylaxis, 03/24/17) Achromycin V (Verified Allergy, Unknown, 03/24/17) Erythromycin (Verified Allergy, Unknown, 03/24/17) *MDRO Multi-Drug Resistant Organism (Verified Adverse Reaction, Unknown, MRSA, 03/24/17) MRSA screen (nares) POSITIVE - 03/09/17 Family History Mother with history of hypertension. Social History No tobacco or alcohol Physical Exam Vital Signs Vital Signs Date Time Temp Pulse Resp B/P Pulse Ox O2 Delivery O2 Flow Rate FiO2 03/24/17 08:57 20 03/24/17 06:49 98.6 102 24 126/65 95 03/24/17 06:20 107 18 119/54 97 Room Air 03/24/17 04:55 108 18 113/52 95 Room Air 03/24/17 04:32 103 18 95 Room Air 03/24/17 03:50 98.5 103 18 163/57 95 Physical Exam GENERAL: Chronically ill-appearing female. Asymmetric body. Right side is bigger. SKIN: Large hemangioma involving the right flank/thigh. Attempted to remove dressing to look at the wound on the right flank but immediately noted active arterial bleed. Pressure dressing reapplied. ENT: Nose without drainage. NECK: Trachea midline. Supple, nontender, no meningeal signs. CARDIOVASCULAR: Regular rate and rhythm without murmurs, gallops, or rubs. RESPIRATORY: Clear to auscultation. Breath sounds equal bilaterally. No wheezes , rales, or rhonchi. GASTROINTESTINAL: Abdomen soft, non-tender, nondistended. No hepato-splenomegaly , or palpable masses. No guarding. NEUROLOGICAL: Awake and alert. Normal speech. Laboratory Laboratory Tests Test 03/24/17 03/24/17 03/24/17 04:30 05:15 12:45 White Blood Count 10.3 Red Blood Count 3.07 Hemoglobin 9.4 8.6 Hematocrit 28.3 25.6 Mean Corpuscular Volume 92.1 Mean Corpuscular Hemoglobin 30.7 Mean Corpuscular Hemoglobin 33.3 Concent Red Cell Distribution Width 15.5 Platelet Count 271 Mean Platelet Volume 6.9 Neutrophils (%) (Auto) 74.8 Lymphocytes (%) (Auto) 9.2 Monocytes (%) (Auto) 13.5 Eosinophils (%) (Auto) 1.8 Basophils (%) (Auto) 0.7 Neutrophils # (Auto) 7.7 Lymphocytes # (Auto) 0.9 Monocytes # (Auto) 1.4 Eosinophils # (Auto) 0.2 Basophils # (Auto) 0.1 CBC Comment DIFF FINAL Differential Comment Prothrombin Time 12.5 Prothromb Time International 1.1 Ratio Activated Partial 27.0 Thromboplast Time Sodium Level 134 Potassium Level 4.4 Chloride Level 97 Carbon Dioxide Level 31.9 Anion Gap 5 Blood Urea Nitrogen 11 Creatinine 0.52 Estimat Glomerular Filtration 120 Rate Random Glucose 111 Calcium Level 7.7 Total Bilirubin 0.3 Aspartate Amino Transf 22 (AST/SGOT) Alanine Aminotransferase 17 (ALT/SGPT) Alkaline Phosphatase 148 Total Protein 6.3 Albumin 2.6 Phenytoin (Dilantin) Level 9.6 Urine Collection Type CATH Urine Color YELLOW Urine Turbidity CLEAR Urine pH 7.0 Urine Specific [place] 1.015 Urine Protein NEG Urine Glucose (UA) NEG Urine Ketones NEG Urine Occult Blood TRACE Urine Nitrite POS Urine Bilirubin NEG Urine Leukocyte Esterase NEG Urine RBC 0-3 Urine WBC 3-5 Urine Squamous Epithelial 0-2 Cells Microscopic Urinalysis Comment CULTURE INDICATED Date/Time Procedure Status Source Growth 03/24/17 05:15 Urine Culture Received Urine Catheterized Urine Pending Result Diagram: 03/24/17 1245 03/24/17 0430 Assessment and Plan Problem List: (1) Capillary hemangioma of skin and subcutaneous tissue ICD Code: D18.01 Status: Acute (2) Klippel-Trenaunay disease ICD Code: Q87.2 Status: Acute (3) Active bleeding ICD Code: Z78.9 Status: Acute Plan: Patient has an active bleeding wound in the region of the large hemangioma. I discussed with general surgery, Dr. Clemente who advised pressure dressing to stop the bleeding. In terms of definitive treatment. He recommends transfer to a tertiary care center where the patient can be evaluated by plastic surgery with expertise in hemangiomas. - Bleeding currently stopped with a large pressure dressing. I initiated transfer to [facility] or [facility]. CM consulted. - Serial H&H (4) Acute blood loss anemia ICD Code: D62 Status: Acute Plan: Secondary to above. Serial H&H Transfuse for hemoglobin less than 8. (5) Seizure disorder ICD Code: G40.909 Status: Chronic Plan: Resume home seizure medications. (6) Hypothyroidism ICD Code: E03.9 Status: Chronic Plan: Continue Synthroid Assessment and Plan Admit to inpatient. Plan to transfer to tertiary care center. No Plastic surgery available here. Discussed Condition With Dr. Clemente. Physician Certification 2 Midnight Certification Type: Admission for Inpatient Services Order for Inpatient Services The services are ordered in accordance with Medicare regulations or non- Medicare payer requirements, as applicable. In the case of services not specified as inpatient-only, they are appropriately provided as inpatient services in accordance with the 2-midnight benchmark. Estimated LOS (days): 5 days is the estimated time the patient will need to remain in the hospital, assuming treatment plan goals are met and no additional complications. Post-Hospital Plan: [facility] Martin Patton MD Mar 24, 2017 13:27
[2017-03-24] MEDS ORDERED: ALENDRONATE SODIUM 70 MG TAB PO SCH (14:15)
[2017-03-24] MEDS: PANTOPRAZOLE SOD 20 MG DELAYED RELEASE TAB PO SCH (14:56)
[2017-03-24] MEDS: CALCIUM/VITAMIN D 250 MG/125 U TAB PO SCH (14:56)
[2017-03-24] MEDS: PHENobarbital 32.4 MG TAB PO SCH ×2 (14:57→21:00)
[2017-03-24] MEDS: ASCORBIC ACID 500 MG TAB PO SCH ×2 (14:57→21:00)
[2017-03-24] MEDS: BACITRACIN TOP OINT 15 GM TUBE TOPICAL SCH ×2 (17:10→21:00)
[2017-03-24] MEDS ORDERED: LIDOCAINE HCL 1% 50 ML VIAL ONE (17:56)
[2017-03-24] MEDS ORDERED: metroNIDAZOLE 500 MG TAB PO SCH (18:00)
[2017-03-24] MEDS ORDERED: LIDOCAINE 1%/EPINEPHrine 1:100,000 SOLN 20 ML VIAL INFIL ONE (18:00)
[2017-03-24] MEDS ORDERED: LIDOCAINE 1%/EPINEPHrine 1:100,000 SOLN 30 ML VIAL ONE ×2 (18:01→20:50)
[2017-03-24 18:53] LABS: HEMATOCRIT 25.6 % (35.0-46.0); REVIEW FLAG FINAL
--- NOTE | 2017-03-24 19:03 | PD.CONS ---
cc: Jeremiah Clemente MD [facility] Service General Surgery Consult Requested By Dr. Patton Reason for Consult Bleeding hemangioma Primary Care Physician Ketan David, DO History of Present Illness This is a 61 year old female with an extensive medical history including a large hemangioma. She was seen about three weeks ago here in [place] for bleeding of her hemangioma. She was evaluated by Dr. Clemente and sutures were placed. The bleeding stopped. The patient was then DCed to rehab with dressing change orders of Telfa dressings. The patient comes back to the ED this AM for evaluation of bleeding hemangioma. The bleeding has not stopped. A General Surgery evaluation has been requested. Review of Systems Constitutional: COMPLAINS OF: Fatigue, Chills Endocrine: DENIES: Polydipsia, Polyuria, Polyphagia Eyes: DENIES: Eye inflammation Ears, nose, mouth, throat: DENIES: Hearing loss Respiratory: DENIES: Cough Cardiovascular: DENIES: Chest pain Gastrointestinal: DENIES: Abdominal pain Genitourinary: DENIES: Urinary frequency Musculoskeletal: DENIES: Joint pain Integumentary: DENIES: Abnormal pigmentation Hematologic/lymphatic: DENIES: Bruising Immunologic/allergic: DENIES: Eczema Neurologic: DENIES: Headache, Localized weakness Psychiatric: DENIES: Mood changes, Depression Past Family Social History Past Medical History Kipple-trenaunary syndrome Lumbar fractures treated with TLSO brace Hypothyroidism Seizure Scoliosis Past Surgical History Cataract surgery Sutures placed in hemangioma appx 2 weeks ago Allergies: Coded Allergies: coconut (Unverified Allergy, Severe, Anaphylaxis, 03/25/17) peas (Unverified Allergy, Severe, Anaphylaxis, 03/25/17) erythromycin base (Unverified Allergy, Unknown, 03/25/17) tetracycline (Unverified Allergy, Unknown, 03/25/17) *MDRO Multi-Drug Resistant Organism (Verified Adverse Reaction, Unknown, MRSA, 03/24/17) MRSA screen (nares) POSITIVE - 03/09/17 Active Ordered Medications Current Medications Medications (Trade) Dose Ordered Sig/Ivette Route Start Time Stop Time Status Last Admin (NS Flush) 2 ml UNSCH PRN IV FLUSH 03/24/17 06:30 (NS Flush) 2 ml BID IV FLUSH 03/24/17 09:00 (Zofran Inj) 4 mg Q6H PRN IVP 03/24/17 06:30 (Tylenol) 650 mg Q6H PRN PO 03/24/17 06:30 (Roxicodone) 10 mg Q4H PRN PO 03/24/17 06:30 03/24/17 14:02 (Roxicodone) 5 mg Q4H PRN PO 03/24/17 06:30 (Edda-Colace) 1 tab BID PO 03/24/17 09:00 (Milk Of Magnesia Liq) 30 ml Q12H PRN PO 03/24/17 06:30 (Senokot) 17.2 mg Q12H PRN PO 03/24/17 06:30 (Dulcolax Supp) 10 mg DAILY PRN RECTAL 03/24/17 06:30 Lactulose 30 ml 30 ml DAILY PRN PO 03/24/17 06:30 (NS 250 ml Inj) 250 ml @ 15 mls/hr ONCE ONCE IV 03/24/17 06:30 03/24/17 23:09 03/24/17 07:55 (Vitamin D3) 1,000 units DAILY PO 03/25/17 09:00 (Vitamin B12) 1,000 mcg DAILY PO 03/25/17 09:00 (Neurontin) 100 mg TID PO 03/24/17 18:00 (Synthroid) 75 mcg DAILY@06 PO 03/25/17 06:00 (Lopressor) 25 mg BID PO 03/24/17 21:00 (Dilantin) 300 mg BID PO 03/24/17 21:00 (Vitamin C) 500 mg BID PO 03/24/17 15:00 03/24/17 14:57 (Oscal-D 250-125) 1,500 mg DAILY PO 03/24/17 14:30 03/24/17 14:56 (Protonix) 20 mg DAILY PO 03/24/17 14:15 03/24/17 14:56 (PHENobarbital) 32.4 mg BID PO 03/24/17 14:15 03/24/17 14:57 (Baciguent Oint) 1 applic Q12HR TOPICAL 03/24/17 17:10 Family History Non contributory Social History Denies tobacco use Denies illicit drug use Denies ETOH use Was in rehab prior to this admission Physical Exam Vital Signs Vital Signs Date Time Temp Pulse Resp B/P Pulse Ox O2 Delivery O2 Flow Rate FiO2 03/24/17 16:35 99.2 114 20 108/60 95 03/24/17 15:02 20 03/24/17 12:00 98.3 104 18 149/71 93 03/24/17 06:49 98.6 102 24 126/65 95 03/24/17 06:20 107 18 119/54 97 Room Air 03/24/17 04:55 108 18 113/52 95 Room Air 03/24/17 04:32 103 18 95 Room Air 03/24/17 03:50 98.5 103 18 163/57 95 Physical Exam GENERAL: 61 year old female resting in bed in mild distress. SKIN: Large RIGHT sided hemangioma with skin opening--- actively bleeding. HEAD: Atraumatic. Normocephalic. EYES: Pupils equal and round. No scleral icterus. No injection or drainage. ENT: No nasal bleeding or discharge. Mucous membranes pink and moist. NECK: Trachea midline. CARDIOVASCULAR: Regular rate and rhythm. RESPIRATORY: No accessory muscle use. Clear to auscultation. Breath sounds equal bilaterally. GASTROINTESTINAL: Abdomen soft, non-tender, nondistended. MUSCULOSKELETAL: Extremities without clubbing, cyanosis, or edema. RIGHT knee swelling; RIGHT leg larger than the LEFT. NEUROLOGICAL: Awake and alert. No obvious cranial nerve deficits. Motor grossly within normal limits. Five out of 5 muscle strength in the arms and legs. Normal speech. PSYCHIATRIC: Appropriate mood and affect; insight and judgment normal. Laboratory Laboratory Tests Test 03/24/17 03/24/17 03/24/17 03/24/17 04:30 05:15 12:45 18:42 White Blood Count 10.3 Red Blood Count 3.07 Hemoglobin 9.4 8.6 8.6 Hematocrit 28.3 25.6 25.6 Mean Corpuscular Volume 92.1 Mean Corpuscular Hemoglobin 30.7 Mean Corpuscular Hemoglobin 33.3 Concent Red Cell Distribution Width 15.5 Platelet Count 271 Mean Platelet Volume 6.9 Neutrophils (%) (Auto) 74.8 Lymphocytes (%) (Auto) 9.2 Monocytes (%) (Auto) 13.5 Eosinophils (%) (Auto) 1.8 Basophils (%) (Auto) 0.7 Neutrophils # (Auto) 7.7 Lymphocytes # (Auto) 0.9 Monocytes # (Auto) 1.4 Eosinophils # (Auto) 0.2 Basophils # (Auto) 0.1 CBC Comment DIFF FINAL Differential Comment Prothrombin Time 12.5 Prothromb Time International 1.1 Ratio Activated Partial 27.0 Thromboplast Time Sodium Level 134 Potassium Level 4.4 Chloride Level 97 Carbon Dioxide Level 31.9 Anion Gap 5 Blood Urea Nitrogen 11 Creatinine 0.52 Estimat Glomerular Filtration 120 Rate Random Glucose 111 Calcium Level 7.7 Total Bilirubin 0.3 Aspartate Amino Transf 22 (AST/SGOT) Alanine Aminotransferase 17 (ALT/SGPT) Alkaline Phosphatase 148 Total Protein 6.3 Albumin 2.6 Phenytoin (Dilantin) Level 9.6 Urine Collection Type CATH Urine Color YELLOW Urine Turbidity CLEAR Urine pH 7.0 Urine Specific [place] 1.015 Urine Protein NEG Urine Glucose (UA) NEG Urine Ketones NEG Urine Occult Blood TRACE Urine Nitrite POS Urine Bilirubin NEG Urine Leukocyte Esterase NEG Urine RBC 0-3 Urine WBC 3-5 Urine Squamous Epithelial 0-2 Cells Microscopic Urinalysis Comment CULTURE INDICATED Date/Time Procedure Status Source Growth 03/24/17 05:15 Urine Culture Received Urine Catheterized Urine Pending Result Diagram: 03/24/17 1842 03/24/17 0430 Assessment and Plan Assessment and Plan 61 year old female with bleeding hemangioma -Recommend transfer to tertiary center for Plastics evaluation -Surgicel placed in wound bed and pressure held until bleeding stopped -Tight blaze bandaged applied -Check H/H -Transfuse 1 unit PRBCs; we check H/H after transfusion -Thank you for this consult Discussed Condition With Dr. Clemente Ms. Lucio and Mother at bedside Niecy Bennett Mar 24, 2017 19:03
[2017-03-24] MEDS ORDERED: BACITRACIN TOP OINT 15 GM TUBE TOPICAL SCH (21:00)
[2017-03-24] MEDS: METOPROLOL TARTRATE 25 MG TAB PO SCH (21:00)
[2017-03-24] MEDS: PHENYTOIN SODIUM 100 MG CAP PO SCH (21:01)
[2017-03-24] MEDS: GABAPENTIN 100 MG CAP PO SCH (21:04)
[2017-03-25] VITALS: BP 112/50; PULSE 90; RESP 18; TEMP 97.9; O2SAT 93
[2017-03-25 02:32] LABS: HEMATOCRIT 25.6 % (35.0-46.0); REVIEW FLAG FINAL
[2017-03-25 05:38] LABS: AUTOMATED NEUTROPHIL # 7.1 TH/MM3 (1.8-7.7); BASOPHIL % 0.4 % (0.0-2.0); EOSINOPHIL # 0.2 TH/MM3 (0-0.4); EOSINOPHIL % 2.4 % (0.0-4.0); HEMATOCRIT 27.3 % (35.0-46.0); HEMO FLAGS DIFF FINAL; LYMPH % 11.7 % (9.0-44.0); LYMPHOCYTE # 1.2 TH/MM3 (1.0-4.8); MEAN CELL VOLUME 90.1 FL (80.0-100.0); MEAN CORPUSCULAR HEMOGLOBIN 30.2 PG (27.0-34.0); MEAN CORPUSCULAR HGB CONC 33.5 % (32.0-36.0); MONO % 14.4 % (0.0-8.0); NEUT % 71.1 % (16.0-70.0); PLATELET COUNT 231 TH/MM3 (150-450); RED BLOOD COUNT 3.03 MIL/MM3 (4.00-5.30); RED CELL DISTRIBUTION WIDTH 16.3 % (11.6-17.2); WHITE BLOOD COUNT 9.9 TH/MM3 (4.0-11.0)
[2017-03-25] MEDS: LEVOTHYROXINE SODIUM 75 MCG TAB PO SCH (05:40)
[2017-03-25 05:50] LABS: CHLORIDE 97 MEQ/L (98-107); POTASSIUM 4.6 MEQ/L (3.5-5.1); SODIUM (NA) 134 MEQ/L (136-145)
[2017-03-25 05:53] LABS: ANION GAP 6 MEQ/L (5-15); BICARBONATE 30.8 MEQ/L (21.0-32.0)
[2017-03-25 05:54] LABS: BLOOD UREA NITROGEN 15 MG/DL (7-18)
[2017-03-25 05:57] LABS: ALT (GPT) 14 U/L (10-53); AST (GOT) 20 U/L (15-37); GLOMERULAR FILTRATION RATE 145 ML/MIN (>89)
[2017-03-25 05:58] LABS: TOTAL BILIRUBIN ADULT 0.5 MG/DL (0.2-1.0)
[2017-03-25 05:59] LABS: ALKALINE PHOSPHATASE 120 U/L (45-117)
[2017-03-25 08:15] VITALS: BP 114/59; PULSE 98; RESP 19; TEMP 98.4; O2SAT 93
[2017-03-25] MEDS: BACITRACIN TOP OINT 15 GM TUBE TOPICAL SCH ×2 (09:00→20:59)
[2017-03-25] MEDS: SODIUM CHLORIDE 0.9% FLUSH 10 ML FLUSH IV FLUSH SCH ×2 (09:00→20:43)
[2017-03-25] MEDS: PHENobarbital 32.4 MG TAB PO SCH ×2 (09:11→20:42)
[2017-03-25] MEDS: CHOLECALCIFEROL (VIT D3) 1000 UNIT TAB PO SCH (09:11)
[2017-03-25] MEDS: ASCORBIC ACID 500 MG TAB PO SCH ×2 (09:11→20:42)
[2017-03-25] MEDS: DOCUSATE SODIUM 50 MG/SENNA 8.6 MG TAB PO SCH ×2 (09:11→20:42)
[2017-03-25] MEDS: GABAPENTIN 100 MG CAP PO SCH ×3 (09:11→18:00)
[2017-03-25] MEDS: PANTOPRAZOLE SOD 20 MG DELAYED RELEASE TAB PO SCH (09:11)
[2017-03-25] MEDS: CYANOCOBALAMIN 1,000 MCG TAB PO SCH (09:11)
[2017-03-25] MEDS: METOPROLOL TARTRATE 25 MG TAB PO SCH ×2 (09:11→20:42)
[2017-03-25] MEDS: CALCIUM/VITAMIN D 250 MG/125 U TAB PO SCH (09:12)
[2017-03-25] MEDS: PHENYTOIN SODIUM 100 MG CAP PO SCH ×2 (09:12→20:42)
[2017-03-25 12:22] VITALS: BP 117/60; PULSE 98; RESP 19; TEMP 98.9; O2SAT 94
--- NOTE | 2017-03-25 13:59 | HHI.PR ---
Subjective Remarks Patient has no new complaints. Awaiting transfer to [facility]. Large pressure dressing applied yesterday by general surgery. Objective Vitals Vital Signs Date Time Temp Pulse Resp B/P Pulse Ox O2 Delivery O2 Flow Rate FiO2 03/25/17 12:22 98.9 98 19 117/60 94 03/25/17 08:15 98.4 98 19 114/59 93 03/25/17 00:00 97.9 90 18 112/50 93 03/25/17 00:00 97.9 90 18 112/50 93 03/24/17 21:25 97.7 96 20 111/56 95 03/24/17 20:00 96.4 107 18 127/61 95 03/24/17 16:35 99.2 114 20 108/60 95 03/24/17 15:02 20 I/O 03/24/17 03/24/17 03/24/17 03/25/17 03/25/17 03/25/17 07:00 15:00 23:00 07:00 15:00 23:00 Intake Total 672 ml Balance 672 ml Intake Oral 280 ml IV Total 42 ml Packed Cells 350 ml # Voids 1 # Bowel Movements 0 Result Diagram: 03/25/17 0420 03/25/17 0420 Objective Remarks GENERAL: Chronically ill-appearing female. Asymmetric body. Right side is bigger. SKIN: Large hemangioma involving the right flank/thigh. Tight pressure dressing in place. Appear intact currently ENT: Nose without drainage. NECK: Trachea midline. Supple, nontender, no meningeal signs. CARDIOVASCULAR: Regular rate and rhythm without murmurs, gallops, or rubs. RESPIRATORY: Clear to auscultation. Breath sounds equal bilaterally. No wheezes , rales, or rhonchi. GASTROINTESTINAL: Abdomen soft, non-tender, nondistended. No hepato-splenomegaly , or palpable masses. No guarding. NEUROLOGICAL: Awake and alert. Normal speech. 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 - Case discussed at length with general surgery. A large pressure dressing has been applied. Currently bleeding stopped. General surgery advised transfer to tertiary [facility] for plastics surgery evaluation. Case discussed with Dr. Dorman at [facility]. Patient has been accepted. Awaiting arrangements for transfer. Discussed with case management. - Pressure dressing currently on with tight Robert bandage. Do not change. Acute blood loss anemia Secondary to above. Patient received 1 unit or PRBC transfusion last night. H&H stable this morning. Seizure disorder Continue home seizure medications. Hypothyroidism Continue Synthroid Discharge Planning Transfer to [facility] as soon as arrangements are made. Accepting physician is Dr. Dorman. Martin Patton MD Mar 25, 2017 13:58
--- NOTE | 2017-03-25 14:36 | HHI.DS ---
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 The patient has a large hemangioma on the right side and the wound that has been bleeding on and off for the past two weeks. She has required blood transfusion. According to her mother she has had about 5 episodes of active bleeding from the wound. She has had previous sutures in attempts to stop the bleeding. However bleeding always recur. The patient was sent from a snf after she was noted to be actively bleeding from the wound again. CBC/BMP: 03/25/17 0420 03/25/17 0420 Significant Findings Laboratory Tests Test 03/24/17 03/24/17 03/24/17 03/24/17 04:30 05:15 12:45 18:42 Red Blood Count 3.07 MIL/MM3 (4.00-5.30) Hemoglobin 9.4 GM/DL 8.6 GM/DL 8.6 GM/DL (11.6-15.3) (11.6-15.3) (11.6-15.3) Hematocrit 28.3 % 25.6 % 25.6 % (35.0-46.0) (35.0-46.0) (35.0-46.0) Mean Platelet Volume 6.9 FL (7.0-11.0) Neutrophils (%) (Auto) 74.8 % (16.0-70.0) Monocytes (%) (Auto) 13.5 % (0.0-8.0) Lymphocytes # (Auto) 0.9 TH/MM3 (1.0-4.8) Monocytes # (Auto) 1.4 TH/MM3 (0-0.9) Prothrombin Time 12.5 SEC (9.8-11.6) Sodium Level 134 MEQ/L (136-145) Chloride Level 97 MEQ/L (98-107) Random Glucose 111 MG/DL (74-106) Calcium Level 7.7 MG/DL (8.5-10.1) Alkaline Phosphatase 148 U/L (45-117) Total Protein 6.3 GM/DL (6.4-8.2) Albumin 2.6 GM/DL (3.4-5.0) Phenytoin (Dilantin) Level 9.6 MCG/ML (10.0-20.0) Urine Occult Blood TRACE (NEG) Urine Nitrite POS (NEG) Test 03/25/17 03/25/17 02:10 04:20 Hemoglobin 8.9 GM/DL 9.1 GM/DL (11.6-15.3) (11.6-15.3) Hematocrit 25.6 % 27.3 % (35.0-46.0) (35.0-46.0) Red Blood Count 3.03 MIL/MM3 (4.00-5.30) Neutrophils (%) (Auto) 71.1 % (16.0-70.0) Monocytes (%) (Auto) 14.4 % (0.0-8.0) Monocytes # (Auto) 1.4 TH/MM3 (0-0.9) Sodium Level 134 MEQ/L (136-145) Chloride Level 97 MEQ/L (98-107) Creatinine 0.44 MG/DL (0.50-1.00) Calcium Level 7.6 MG/DL (8.5-10.1) Alkaline Phosphatase 120 U/L (45-117) Total Protein 5.8 GM/DL (6.4-8.2) Albumin 2.4 GM/DL (3.4-5.0) PE at Discharge GENERAL: Chronically ill-appearing female. Asymmetric body. Right side is bigger. SKIN: Large hemangioma involving the right flank/thigh. Tight pressure dressing in place. Appear intact currently ENT: Nose without drainage. NECK: Trachea midline. Supple, nontender, no meningeal signs. CARDIOVASCULAR: Regular rate and rhythm without murmurs, gallops, or rubs. RESPIRATORY: Clear to auscultation. Breath sounds equal bilaterally. No wheezes , rales, or rhonchi. GASTROINTESTINAL: Abdomen soft, non-tender, nondistended. No hepato-splenomegaly , or palpable masses. No guarding. NEUROLOGICAL: Awake and alert. Normal speech. Pt update on day of discharge Patient has no new complaints. Awaiting transfer to [facility]. Large pressure dressing applied yesterday evening by general surgery. Hospital Course The patient was admitted for anemia and active bleeding from the wound/ hemangioma. A pressure dressing was applied. However as soon as this is removed the patient actively bleed. She was evaluated by surgery who placed Surgicel and another pressure dressing with tight Robert wrap. General surgery recommended transfer to tertiary care center so the patient can be evaluated by plastic surgery with expertise in hemangiomas. I discussed the case with hospitalist Dr. Dorman will accepted the transfer. I also discussed the case with plastic surgery at [facility] who agreed to see the patient in consultation. Other medical conditions include seizure disorder which is stable in the patients home medications. Scoliosis and h/o lumbar fracture. Pain is controlled with Roxicodone. Pt Condition on Discharge: Stable Discharge Disposition: Trnsfr to Other Facility Discharge Time: > 30 minutes Discharge Instructions DIET: Follow Instructions for: Heart Healthy Diet Activities you can perform: Regular-No Restrictions Continued Medications: Acetaminophen (Eq Acetaminophen) 325 Mg Tab 650 MG PO Q4H PRN TEMP > 100.4 #90 TAB Alendronate (Fosamax) 70 Mg Tab 70 MG PO Q7D Osteoporosis Treatment #4 Ref 0 TAB Ascorbic Acid (Vitamin C) 250 Mg Chew 500 MG CHEW BID Nutritional Supplement #60 Ref 0 TAB Calcium Carbonate (Antacid) (Antacid) 500 Mg Chew 2 TAB CHEW DAILY PRN REFLUX TAB Calcium Carbonate-Cholecalciferol (Calcium 500+D) 500-200 Mg-Unit Tab 3 TAB PO DAILY TAB Cholecalciferol (Vitamin D3) 1,000 Unit Cap 1000 UNITS PO DAILY Nutritional Supplement #1 Ref 0 BOTTLE Cyanocobalamin (Vitamin B-12) 1,000 Mcg Tab 1000 MCG PO DAILY Nutritional Supplement #1 Ref 0 BOTTLE Gabapentin (Neurontin) 100 Mg Cap 100 MG PO TID #90 Ref 0 CAP Levothyroxine (Levothyroxine) 75 Mcg Tab 75 MCG PO DAILY Thyroid #30 Ref 0 TAB Metoprolol Tartrate (Metoprolol Tartrate) 25 Mg Tab 25 MG PO BID #60 Ref 0 TAB Multiple Vitamin (Tab-A-Rich) 1 Tab Tab Omeprazole (Omeprazole) 20 Mg Tab 20 MG PO DAILY #30 Ref 0 TAB Phenobarbital (Phenobarbital) 30 Mg Tab 32.4 MG PO BID Control Seizures #60 Ref 0 TAB Phenytoin Extended (Dilantin) 100 Mg Cap 300 MG PO BID Control Seizures #270 Ref 0 CAP Polyethylene Glycol 3350 Powder (Polyethylene Glycol 3350 Powder) 17 Gm Pow 17 GM PO DAILY Constipation #1 Ref 0 BOTTLE Sodium Chloride (Sodium Chloride) 1 Gm Tab 1 GM PO DAILY Electrolyte Replacement Ref 0 TAB Discontinued Medications: Docusate Sodium (Stool Softener Extra Strength) 250 Mg Cap 250 MG PO DAILY PRN CONSTIPATION CAP Meloxicam (Mobic) 7.5 Mg Tab 7.5 MG PO DAILY Pain Ref 0 TAB Metronidazole (Flagyl) 500 Mg Tab 500 MG PO Q6HR wound Days 9 TAB Sennosides-Docusate Sodium (Senna-Plus) 8.6-50 Mg Tab 2 TAB PO DAILY Constipation Ref 0 TAB Martin Patton MD Mar 25, 2017 14:35
[2017-03-25 16:59] VITALS: BP 120/53; PULSE 98; RESP 19; TEMP 98.8; O2SAT 94
--- NOTE | 2017-03-25 17:14 | HHI.PR ---
Subjective Subjective Notes Patient feels better today Mother at bedside Objective Vitals/I&O Vital Signs Date Time Temp Pulse Resp B/P Pulse Ox O2 Delivery O2 Flow Rate FiO2 03/25/17 16:59 98.8 98 19 120/53 94 03/24/17 06:20 Room Air Labs Laboratory Tests Test 03/24/17 03/24/17 03/25/17 03/25/17 18:42 19:03 02:10 04:20 Hemoglobin 8.6 8.9 9.1 Hematocrit 25.6 25.6 27.3 Blood Type AB POSITIVE Crossmatch Leukocyte-Reduced Red Blood Cells Blood Bank Comment White Blood Count 9.9 Red Blood Count 3.03 Mean Corpuscular Volume 90.1 Mean Corpuscular Hemoglobin 30.2 Mean Corpuscular Hemoglobin 33.5 Concent Red Cell Distribution Width 16.3 Platelet Count 231 Mean Platelet Volume 7.4 Neutrophils (%) (Auto) 71.1 Lymphocytes (%) (Auto) 11.7 Monocytes (%) (Auto) 14.4 Eosinophils (%) (Auto) 2.4 Basophils (%) (Auto) 0.4 Neutrophils # (Auto) 7.1 Lymphocytes # (Auto) 1.2 Monocytes # (Auto) 1.4 Eosinophils # (Auto) 0.2 Basophils # (Auto) 0.0 CBC Comment DIFF FINAL Differential Comment Sodium Level 134 Potassium Level 4.6 Chloride Level 97 Carbon Dioxide Level 30.8 Anion Gap 6 Blood Urea Nitrogen 15 Creatinine 0.44 Estimat Glomerular Filtration 145 Rate Random Glucose 104 Calcium Level 7.6 Total Bilirubin 0.5 Aspartate Amino Transf 20 (AST/SGOT) Alanine Aminotransferase 14 (ALT/SGPT) Alkaline Phosphatase 120 Total Protein 5.8 Albumin 2.4 Date/Time Procedure Status Source Growth 03/24/17 05:15 Urine Culture - Preliminary Resulted Urine Catheterized Urine NO GROWTH IN 24 HOURS. Cardiovascular: Regular Lungs: Clear Abdomen: Non-distended, Non-tender Narrative Exam large heminaoma with bleeding---site with pressure dressing ---intact A/P Assessment and Plan 61 year old female with skin bleeding from hemangioma -Maintain pressure dressing -Hmg stable s/p 1 unit PRBCs -Patient being transferred to [facility] Mar 25, 2017 17:14
[2017-03-25 20:10] VITALS: BP 145/73; PULSE 100; RESP 20; TEMP 98.1; O2SAT 92
[2017-03-26] VITALS (7 sets, daily range): BP systolic 117–142; BP diastolic 57–69; PULSE 93–99; RESP 16–20; TEMP 96.7–98.7; O2SAT 88–98
[2017-03-26] MEDS: LEVOTHYROXINE SODIUM 75 MCG TAB PO SCH (06:06)
[2017-03-26] MEDS: BACITRACIN TOP OINT 15 GM TUBE TOPICAL SCH ×2 (09:00→21:00)
[2017-03-26] MEDS: ASCORBIC ACID 500 MG TAB PO SCH ×2 (09:11→21:04)
[2017-03-26] MEDS: PANTOPRAZOLE SOD 20 MG DELAYED RELEASE TAB PO SCH (09:11)
[2017-03-26] MEDS: CHOLECALCIFEROL (VIT D3) 1000 UNIT TAB PO SCH (09:11)
[2017-03-26] MEDS: DOCUSATE SODIUM 50 MG/SENNA 8.6 MG TAB PO SCH ×2 (09:11→21:04)
[2017-03-26] MEDS: PHENYTOIN SODIUM 100 MG CAP PO SCH ×2 (09:11→21:03)
[2017-03-26] MEDS: PHENobarbital 32.4 MG TAB PO SCH ×2 (09:11→21:04)
[2017-03-26] MEDS: SODIUM CHLORIDE 0.9% FLUSH 10 ML FLUSH IV FLUSH SCH ×2 (09:12→21:03)
[2017-03-26] MEDS: CYANOCOBALAMIN 1,000 MCG TAB PO SCH (09:12)
[2017-03-26] MEDS: CALCIUM/VITAMIN D 250 MG/125 U TAB PO SCH (09:12)
[2017-03-26] MEDS: METOPROLOL TARTRATE 25 MG TAB PO SCH ×2 (09:12→21:04)
[2017-03-26] MEDS: GABAPENTIN 100 MG CAP PO SCH ×3 (09:12→18:08)
--- NOTE | 2017-03-26 12:20 | HHI.PR ---
Subjective Remarks Patient reports she is doing okay. Awaiting a bed to be available at [facility] for transfer. The pressure dressing applied 2 days ago is still intact. Objective Vitals Vital Signs Date Time Temp Pulse Resp B/P Pulse Ox O2 Delivery O2 Flow Rate FiO2 03/26/17 09:00 96.7 99 20 142/64 98 03/26/17 07:05 94 Nasal Cannula 2.00 03/26/17 04:00 94 03/26/17 01:50 94 03/26/17 00:30 94 Nasal Cannula 2.00 03/26/17 00:00 97.7 94 20 138/67 88 03/26/17 00:00 88 Nasal Cannula 2.00 03/25/17 20:10 98.1 100 20 145/73 92 03/25/17 16:59 98.8 98 19 120/53 94 03/25/17 12:22 98.9 98 19 117/60 94 I/O 03/25/17 03/25/17 03/25/17 03/26/17 03/26/17 03/26/17 07:00 15:00 23:00 07:00 15:00 23:00 Intake Total 672 ml 460 ml 120 ml Output Total 150 ml Balance 672 ml 460 ml -30 ml Intake Oral 280 ml 460 ml 120 ml IV Total 42 ml Packed Cells 350 ml Output Urine Total 150 ml # Voids 1 4 2 # Bowel Movements 0 0 Result Diagram: 03/25/1741903/25/170 Objective Remarks GENERAL: Chronically ill-appearing female. Asymmetric body. Right side is bigger. SKIN: Large hemangioma involving the right flank/thigh. Tight pressure dressing in place. Appear intact currently ENT: Nose without drainage. NECK: Trachea midline. Supple, nontender, no meningeal signs. CARDIOVASCULAR: Regular rate and rhythm without murmurs, gallops, or rubs. RESPIRATORY: Clear to auscultation. Breath sounds equal bilaterally. No wheezes , rales, or rhonchi. GASTROINTESTINAL: Abdomen soft, non-tender, nondistended. No hepato-splenomegaly , or palpable masses. No guarding. NEUROLOGICAL: Awake and alert. Normal speech. 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 - Case discussed at length with general surgery. A large pressure dressing has been applied. Currently bleeding stopped. General surgery advised transfer to tertiary [facility] for plastics surgery evaluation. Essentially the patient has a large pressure dressing in place that cannot be removed at this time. Whenever this is removed she starts to bleed actively. She needs care at a tertiary care center. Case discussed with Dr. Dorman at [facility]. Patient has been accepted. Awaiting bed assignment from [facility]. - Pressure dressing currently on with tight Robert bandage. Do not change. Acute blood loss anemia Secondary to above. Patient status post 1 unit or PRBC transfusion last night. H &H stable. Plan to repeat in a.m. Seizure disorder Continue home seizure medications. Hypothyroidism Continue Synthroid Discharge Planning Transfer to [facility] as soon as arrangements are made. Accepting physician is Dr. Dorman. Martin Patton MD Mar 26, 2017 12:20
[2017-03-27] VITALS: BP 144/61; PULSE 89; RESP 20; TEMP 97.7; O2SAT 95
[2017-03-27] MEDS: LEVOTHYROXINE SODIUM 75 MCG TAB PO SCH (05:19)
[2017-03-27 08:00] VITALS: BP 140/60; PULSE 96; RESP 20; TEMP 97.3; O2SAT 92
[2017-03-27 08:23] LABS: AUTOMATED NEUTROPHIL # 6.2 TH/MM3 (1.8-7.7); BASOPHIL % 0.6 % (0.0-2.0); EOSINOPHIL # 0.1 TH/MM3 (0-0.4); EOSINOPHIL % 1.1 % (0.0-4.0); HEMATOCRIT 24.7 % (35.0-46.0); HEMO FLAGS DIFF FINAL; LYMPH % 6.7 % (9.0-44.0); LYMPHOCYTE # 0.5 TH/MM3 (1.0-4.8); MEAN CORPUSCULAR HEMOGLOBIN 30.8 PG (27.0-34.0); MEAN CORPUSCULAR HGB CONC 34.2 % (32.0-36.0); MONO % 8.7 % (0.0-8.0); NEUT % 82.9 % (16.0-70.0); PLATELET COUNT 168 TH/MM3 (150-450); RED BLOOD COUNT 2.75 MIL/MM3 (4.00-5.30); RED CELL DISTRIBUTION WIDTH 15.4 % (11.6-17.2); WHITE BLOOD COUNT 7.5 TH/MM3 (4.0-11.0)
[2017-03-27] MEDS: METOPROLOL TARTRATE 25 MG TAB PO SCH ×2 (09:00→21:20)
[2017-03-27] MEDS: BACITRACIN TOP OINT 15 GM TUBE TOPICAL SCH ×2 (09:00→21:00)
[2017-03-27] MEDS: PHENYTOIN SODIUM 100 MG CAP PO SCH ×2 (09:58→21:21)
[2017-03-27] MEDS: SODIUM CHLORIDE 0.9% FLUSH 10 ML FLUSH IV FLUSH SCH ×2 (09:58→21:21)
[2017-03-27] MEDS: DOCUSATE SODIUM 50 MG/SENNA 8.6 MG TAB PO SCH ×2 (09:58→21:20)
[2017-03-27] MEDS: CYANOCOBALAMIN 1,000 MCG TAB PO SCH (09:59)
[2017-03-27] MEDS: PHENobarbital 32.4 MG TAB PO SCH ×2 (10:00→21:20)
[2017-03-27] MEDS: CHOLECALCIFEROL (VIT D3) 1000 UNIT TAB PO SCH (10:00)
[2017-03-27] MEDS: PANTOPRAZOLE SOD 20 MG DELAYED RELEASE TAB PO SCH (10:00)
[2017-03-27] MEDS: CALCIUM/VITAMIN D 250 MG/125 U TAB PO SCH (10:00)
[2017-03-27] MEDS: ASCORBIC ACID 500 MG TAB PO SCH ×2 (10:00→21:20)
[2017-03-27] MEDS: GABAPENTIN 100 MG CAP PO SCH ×3 (10:01→17:49)
--- NOTE | 2017-03-27 10:42 | HHI.PR ---
Subjective Subjective Notes No issues overnight RIGHT flank dressing still in place Objective Vitals/I&O Vital Signs Date Time Temp Pulse Resp B/P Pulse Ox O2 Delivery O2 Flow Rate FiO2 03/27/17 08:00 97.3 96 20 140/60 92 03/26/17 20:00 Nasal Cannula 2.00 Labs Laboratory Tests Test 03/27/17 08:10 White Blood Count 7.5 Red Blood Count 2.75 Hemoglobin 8.5 Hematocrit 24.7 Mean Corpuscular Volume 90.0 Mean Corpuscular Hemoglobin 30.8 Mean Corpuscular Hemoglobin 34.2 Concent Red Cell Distribution Width 15.4 Platelet Count 168 Mean Platelet Volume 6.4 Neutrophils (%) (Auto) 82.9 Lymphocytes (%) (Auto) 6.7 Monocytes (%) (Auto) 8.7 Eosinophils (%) (Auto) 1.1 Basophils (%) (Auto) 0.6 Neutrophils # (Auto) 6.2 Lymphocytes # (Auto) 0.5 Monocytes # (Auto) 0.7 Eosinophils # (Auto) 0.1 Basophils # (Auto) 0.0 CBC Comment DIFF FINAL Differential Comment Date/Time Procedure Status Source Growth 03/24/17 05:15 Urine Culture - Final Complete Urine Catheterized Urine NO GROWTH IN 48 HOURS. Cardiovascular: Regular Lungs: Clear Abdomen: Non-distended, Non-tender Extremities: No edema Narrative Exam large heminaoma with bleeding---site with pressure dressing ---intact A/P Assessment and Plan 61 year old female with skin bleeding from hemangioma -Maintain pressure dressing -Hmg continues to remain stable -Patient being transferred to [facility] ---awaiting bed placement Niecy Mauro [facility] Mar 27, 2017 10:42
--- NOTE | 2017-03-27 11:04 | HHI.PR ---
Subjective Remarks Patient reports she is feeling okay today. No increased in shortness of breath or heart palpitations. Hemoglobin slightly down to 8.5 today. On the outside, the pressure dressing is still intact. Objective Vitals Vital Signs Date Time Temp Pulse Resp B/P Pulse Ox O2 Delivery O2 Flow Rate FiO2 03/27/17 08:00 97.3 96 20 140/60 92 03/27/17 00:00 97.7 89 20 144/61 95 03/26/17 20:00 Nasal Cannula 2.00 03/26/17 19:30 98.7 98 20 132/57 89 03/26/17 16:39 98.0 94 18 123/64 96 03/26/17 14:24 97.1 93 16 117/69 95 I/O 03/26/17 03/26/17 03/26/17 03/27/17 03/27/17 03/27/17 07:00 15:00 23:00 07:00 15:00 23:00 Intake Total 120 ml 960 ml Output Total 150 ml Balance -30 ml 960 ml Intake Oral 120 ml 960 ml Output Urine Total 150 ml # Voids 2 5 # Bowel Movements 0 1 Result Diagram: 03/27/17 0810 03/25/17 0420 Objective Remarks GENERAL: Chronically ill-appearing female. Asymmetric body. Right side is bigger. SKIN: Large hemangioma involving the right flank/thigh. Tight pressure dressing in place. Appear intact currently ENT: Nose without drainage. NECK: Trachea midline. Supple, nontender, no meningeal signs. CARDIOVASCULAR: Regular rate and rhythm without murmurs, gallops, or rubs. RESPIRATORY: Clear to auscultation. Breath sounds equal bilaterally. No wheezes , rales, or rhonchi. GASTROINTESTINAL: Abdomen soft, non-tender, nondistended. No hepato-splenomegaly , or palpable masses. No guarding. NEUROLOGICAL: Awake and alert. Normal speech. 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 - Case discussed at length with general surgery. A large pressure dressing has been applied. Currently bleeding stopped. General surgery advised transfer to tertiary [facility] for plastics surgery evaluation. Essentially the patient has a large pressure dressing in place that cannot be removed at this time. Whenever this is removed she starts to bleed actively. She needs care at a tertiary care center. Case discussed with Dr. Dorman at [facility]. Patient has been accepted. Awaiting bed assignment from [facility]. I discussed with the transfer center today. The patient is higher on the list and will hopefully be able to have a bed assigned either today or tomorrow. - Pressure dressing currently on with tight Robert bandage. Do not change. Acute blood loss anemia Secondary to above. Patient status post 1 unit or PRBC transfusion. H&H stable today but decreased compared to yesterday. Repeat in a.m. Seizure disorder Continue home seizure medications. Hypothyroidism Continue Synthroid Discharge Planning Transfer to [facility] as soon as arrangements are made. Accepting physician is Dr. Dorman. Martin Patton MD Mar 27, 2017 11:04
[2017-03-27 12:00] VITALS: BP 106/56; PULSE 95; RESP 18; TEMP 97.6; O2SAT 98
[2017-03-27 16:00] VITALS: BP 135/57; PULSE 97; RESP 20; TEMP 98.3; O2SAT 93
[2017-03-27 20:00] VITALS: BP 132/58; PULSE 100; RESP 16; TEMP 97.6; O2SAT 97
[2017-03-27 20:48] LABS: HEMATOCRIT 25.5 % (35.0-46.0); REVIEW FLAG FINAL
[2017-03-28] VITALS (17 sets, daily range): BP systolic 100–146; BP diastolic 54–76; PULSE 82–103; RESP 13–22; TEMP 95.8–98.3; O2SAT 93–100
[2017-03-28] MEDS: LEVOTHYROXINE SODIUM 75 MCG TAB PO SCH (04:27)
[2017-03-28 05:56] LABS: HEMATOCRIT 22.3 % (35.0-46.0); MEAN CELL VOLUME 91.6 FL (80.0-100.0); MEAN CORPUSCULAR HEMOGLOBIN 30.3 PG (27.0-34.0); MEAN CORPUSCULAR HGB CONC 33.1 % (32.0-36.0); PLATELET COUNT 212 TH/MM3 (150-450); RED BLOOD COUNT 2.43 MIL/MM3 (4.00-5.30); RED CELL DISTRIBUTION WIDTH 15.8 % (11.6-17.2); REVIEW FLAG FINAL
[2017-03-28] MEDS ORDERED: SODIUM CHLOR 0.9% 250 ML INJ 250 ML IV ONE (07:15)
[2017-03-28 07:36] LABS: APTT (PATIENT) 25.7 SEC (24.3-30.1); INTERNATIONAL NORMALIZED RATIO 1.1 RATIO; PROTHROMBIN TIME - PATIENT 11.8 SEC (9.8-11.6)
--- NOTE | 2017-03-28 08:45 | HHI.PR ---
Subjective Remarks Patient had active bleeding again from the hemangioma side this morning. She was seen by surgery and pressure dressing reapplied. H&H did drop this morning down to 7.4/22.3, patient had some diaphoretic episodes. Blood transfusion has been ordered. Still waiting for bed at [facility] Objective Vitals Vital Signs Date Time Temp Pulse Resp B/P Pulse Ox O2 Delivery O2 Flow Rate FiO2 03/28/17 00:00 98.3 82 16 115/76 95 03/27/17 20:46 Nasal Cannula 2.00 03/27/17 20:00 97.6 100 16 132/58 97 03/27/17 16:00 98.3 97 20 135/57 93 03/27/17 12:00 97.6 95 18 106/56 98 03/27/17 09:55 94 Nasal Cannula 2.00 I/O 03/27/17 03/27/17 03/27/17 03/28/17 03/28/17 03/28/17 07:00 15:00 23:00 07:00 15:00 23:00 Intake Total 725 ml 242 ml 300 ml Balance 725 ml 242 ml 300 ml Intake Oral 725 ml 240 ml 300 ml IV Total 2 ml # Voids 2 2 1 # Bowel Movements 0 Result Diagram: 03/28/17 0527 03/25/17 0420 Objective Remarks GENERAL: Chronically ill-appearing female. Asymmetric body. Right side is bigger. SKIN: Large hemangioma involving the right flank/thigh. Tight pressure dressing in place. Appear intact currently ENT: Nose without drainage. NECK: Trachea midline. Supple, nontender, no meningeal signs. CARDIOVASCULAR: Regular rate and rhythm without murmurs, gallops, or rubs. RESPIRATORY: Clear to auscultation. Breath sounds equal bilaterally. No wheezes , rales, or rhonchi. GASTROINTESTINAL: Abdomen soft, non-tender, nondistended. No hepato-splenomegaly , or palpable masses. No guarding. NEUROLOGICAL: Awake and alert. Normal speech. 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 - Case discussed at length with general surgery. A large pressure dressing has been applied. Currently bleeding stopped. General surgery advised transfer to tertiary care center for plastics surgery evaluation. Essentially the patient has a large pressure dressing in place that cannot be removed at this time. Whenever this is removed she starts to bleed actively. She needs care at a tertiary care center. Case discussed with Dr. Dorman at [facility]. Patient has been accepted. Awaiting bed assignment from [facility]. I discussed with the transfer center yesterday. The patient is higher on the list and will hopefully be able to have a bed assigned today. 03/28: Active bleeding again from the site. Was seen by general surgery and pressure dressing reapplied. - Pressure dressing currently on with tight Robert bandage. Do not change. Acute blood loss anemia Secondary to above. Patient status post 1 unit or PRBC transfusion on 03/24. H&H dropped today. 2 units PRBC ordered. Seizure disorder Continue home seizure medications. Hypothyroidism Continue Synthroid Discharge Planning Transfer to [facility] as soon as arrangements are made. Accepting physician is Dr. Dorman. Martin Patton MD Mar 28, 2017 08:45
[2017-03-28] MEDS: BACITRACIN TOP OINT 15 GM TUBE TOPICAL SCH ×2 (09:00→20:34)
[2017-03-28] MEDS: PANTOPRAZOLE SOD 20 MG DELAYED RELEASE TAB PO SCH (10:04)
[2017-03-28] MEDS: GABAPENTIN 100 MG CAP PO SCH ×3 (10:05→17:29)
[2017-03-28] MEDS: ASCORBIC ACID 500 MG TAB PO SCH ×2 (10:05→20:22)
[2017-03-28] MEDS: PHENYTOIN SODIUM 100 MG CAP PO SCH ×2 (10:06→20:21)
[2017-03-28] MEDS: DOCUSATE SODIUM 50 MG/SENNA 8.6 MG TAB PO SCH ×2 (10:07→20:21)
[2017-03-28] MEDS: CHOLECALCIFEROL (VIT D3) 1000 UNIT TAB PO SCH (10:07)
[2017-03-28] MEDS: METOPROLOL TARTRATE 25 MG TAB PO SCH ×2 (10:07→20:21)
[2017-03-28] MEDS: CYANOCOBALAMIN 1,000 MCG TAB PO SCH (10:07)
[2017-03-28] MEDS: PHENobarbital 32.4 MG TAB PO SCH ×2 (10:07→20:21)
[2017-03-28] MEDS: CALCIUM/VITAMIN D 250 MG/125 U TAB PO SCH (10:08)
[2017-03-28] MEDS: SODIUM CHLORIDE 0.9% FLUSH 10 ML FLUSH IV FLUSH SCH ×2 (10:13→20:24)
[2017-03-28 16:41] LABS: AUTOMATED NEUTROPHIL # 7.7 TH/MM3 (1.8-7.7); BASOPHIL # 0.2 TH/MM3 (0-0.2); BASOPHIL % 1.6 % (0.0-2.0); EOSINOPHIL # 0.2 TH/MM3 (0-0.4); EOSINOPHIL % 2.2 % (0.0-4.0); HEMATOCRIT 25.5 % (35.0-46.0); LYMPH % 9.4 % (9.0-44.0); MEAN CELL VOLUME 90.8 FL (80.0-100.0); MEAN CORPUSCULAR HEMOGLOBIN 30.4 PG (27.0-34.0); MEAN CORPUSCULAR HGB CONC 33.5 % (32.0-36.0); MONO % 13.3 % (0.0-8.0); NEUT % 73.5 % (16.0-70.0); PLATELET COUNT 178 TH/MM3 (150-450); RED BLOOD COUNT 2.81 MIL/MM3 (4.00-5.30); RED CELL DISTRIBUTION WIDTH 16.2 % (11.6-17.2); WHITE BLOOD COUNT 10.5 TH/MM3 (4.0-11.0)
[2017-03-28 16:42] LABS: HEMO FLAGS DIFF FINAL
--- NOTE | 2017-03-28 17:17 | HHI.PR ---
Addendum to Inpatient Note Addendum Reason: Additional Documentation Additional Information Notified by RN of change in mental status. Patient difficult to arouse. There were some hand twitching reported. By the time of my evaluation. Patient was more alert and interactive but still somewhat drowsy. It is possible she had a seizure or this could be medication side effect but felt less likely since she received the meds earlier today. Need to rule out CVA. 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 This was a new finding to me. Plan: Obtain stat brain CT. cbc, bmp Transfuse second unit of PRBC as previously planned as she had another episode of bleeding earlier and HgB this morning was 7.4 check Dilantin and phenobarb levels. KARL Ledbetter. Martin Patton MD Mar 28, 2017 17:17
--- NOTE | 2017-03-28 17:21 | RADRPT ---
EXAM DATE/TIME: 03/28/2017 16:50 [facility] COMPARISON: No previous studies available for comparison. INDICATIONS : Altered mental status. RADIATION DOSE: 57.76 CTDIvol (mGy) ; Patient motion MEDICAL HISTORY : Seizures. SURGICAL HISTORY : Spinal. ENCOUNTER: Initial ACUITY: 1 day PAIN SCALE: 0/10 LOCATION: cranial TECHNIQUE: Multiple contiguous axial images were obtained of the head. Using automated exposure control and adj ustment of the mA and/or kV according to patient size, radiation dose was kept as low as reasonably a chievable to obtain optimal diagnostic quality images. DICOM format image data is available electro nically for review and comparison. FINDINGS: There is mild streak and motion artifact. Patient is mildly tilted in the gantry. CEREBRUM: The ventricles are normal for age. No evidence of midline shift, mass lesion, hemorrhage or acute in farction. No extra-axial fluid collections are seen. POSTERIOR FOSSA: The cerebellum and brainstem are intact. The 4th ventricle is midline. The cerebellopontine angle i s unremarkable. EXTRACRANIAL: The visualized portion of the orbits is intact. A moderate size retention cyst is noted in the right maxillary sinus. SKULL: The calvaria is intact. No evidence of skull fracture. CONCLUSION: 1. Mild streak and motion artifact. 2. No acute hemorrhage or mass effect. Monster Caceres MD on March 28, 2017 at 17:17 Board Certified Radiologist. This report was verified electronically.
[2017-03-28 17:26] LABS: ALKALINE PHOSPHATASE 106 U/L (45-117); ALT (GPT) 14 U/L (10-53); ANION GAP 1 MEQ/L (5-15); AST (GOT) 16 U/L (15-37); BICARBONATE 36.4 MEQ/L (21.0-32.0); BLOOD UREA NITROGEN 17 MG/DL (7-18); CHLORIDE 100 MEQ/L (98-107); GLOMERULAR FILTRATION RATE 131 ML/MIN (>89); POTASSIUM 5.5 MEQ/L (3.5-5.1); SODIUM (NA) 137 MEQ/L (136-145); TOTAL BILIRUBIN ADULT 0.4 MG/DL (0.2-1.0)
[2017-03-29] VITALS (7 sets, daily range): BP systolic 139–154; BP diastolic 71–86; PULSE 91–103; RESP 16–19; TEMP 96.9–98.8; O2SAT 90–100
[2017-03-29] MEDS: LEVOTHYROXINE SODIUM 75 MCG TAB PO SCH (05:59)
[2017-03-29] MEDS: SODIUM CHLORIDE 0.9% FLUSH 10 ML FLUSH IV FLUSH SCH (07:57)
[2017-03-29] MEDS: BACITRACIN TOP OINT 15 GM TUBE TOPICAL SCH (09:00)
[2017-03-29] MEDS: CHOLECALCIFEROL (VIT D3) 1000 UNIT TAB PO SCH (09:12)
[2017-03-29] MEDS: CALCIUM/VITAMIN D 250 MG/125 U TAB PO SCH (09:12)
[2017-03-29] MEDS: CYANOCOBALAMIN 1,000 MCG TAB PO SCH (09:13)
[2017-03-29] MEDS: PHENYTOIN SODIUM 100 MG CAP PO SCH (09:13)
[2017-03-29] MEDS: GABAPENTIN 100 MG CAP PO SCH ×3 (09:13→16:30)
[2017-03-29] MEDS: DOCUSATE SODIUM 50 MG/SENNA 8.6 MG TAB PO SCH (09:13)
[2017-03-29] MEDS: PANTOPRAZOLE SOD 20 MG DELAYED RELEASE TAB PO SCH (09:13)
[2017-03-29] MEDS: ASCORBIC ACID 500 MG TAB PO SCH (09:13)
[2017-03-29] MEDS: PHENobarbital 32.4 MG TAB PO SCH (09:13)
[2017-03-29] MEDS: METOPROLOL TARTRATE 25 MG TAB PO SCH (09:13)
--- NOTE | 2017-03-29 12:14 | HHI.PR ---
Subjective Remarks Patient had an episode of bleeding from the right buttock capillary hemangioma which was very difficult to control, she was transfused 2 units packed red blood cells with increase of hemoglobin only one point. No further bleeding overnight. Additionally patient had an episode of several hours where she was unresponsive to nursing staff. Phenobarbital level is subtherapeutic at 7 today. This morning the patient is alert and oriented. The patient and her mother are very anxious about her transfer to [facility]. I have placed a call to the [facility] transfer center and I'm awaiting callback from the hospitalist there. Objective Vitals Vital Signs Date Time Temp Pulse Resp B/P Pulse Ox O2 Delivery O2 Flow Rate FiO2 03/29/17 10:58 Nasal Cannula 2.00 03/29/17 08:00 98.0 103 19 154/78 100 03/29/17 04:46 96.9 147/86 96 03/29/17 01:33 98.8 100 16 139/71 100 03/28/17 21:15 98.0 97 22 143/61 100 03/28/17 20:00 100 Nasal Cannula 2.00 03/28/17 19:00 98.2 103 16 142/60 98 03/28/17 18:45 102 141/65 03/28/17 18:30 99 146/67 98 03/28/17 18:15 145/54 03/28/17 18:00 97.2 101 16 128/64 98 03/28/17 17:45 97.4 100 16 133/62 99 03/28/17 17:33 97.3 100 15 133/62 99 03/28/17 16:00 97.4 96 18 114/59 98 03/28/17 15:30 97.6 13 114/62 100 03/28/17 13:30 97.5 92 16 119/63 93 03/28/17 13:00 97.4 97 16 121/65 96 03/28/17 12:45 97.6 94 16 115/60 93 I/O 03/28/17 03/28/17 03/28/17 03/29/17 03/29/17 03/29/17 07:00 15:00 23:00 07:00 15:00 23:00 Intake Total 300 ml 525 ml Balance 300 ml 525 ml Intake Oral 300 ml 525 ml # Voids 1 2 4 # Bowel Movements 0 0 Result Diagram: 8/18/17 1627 03/28/17 1627 Objective Remarks GENERAL: Chronically ill-appearing female. Right sided hypertrophy. SKIN: Warm and dry. HEAD: Normocephalic. EYES: No scleral icterus. No injection or drainage. NECK: Supple, trachea midline. No JVD or lymphadenopathy. CARDIOVASCULAR: Regular rate and rhythm without murmurs, gallops, or rubs. RESPIRATORY: Breath sounds equal bilaterally. No accessory muscle use. GASTROINTESTINAL: Abdomen soft, non-tender, nondistended. EXTREMITIES: No cyanosis, or edema. Right lower leg has significant scar tissue. Right side abdomen and lower back and thigh has a large hemangioma, right lower back has a pressure dressing in place this was not removed. NEUROLOGICAL: Awake, alert, and oriented x 3. Non-focal. 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 However she had to be transfused 2 units of packed red blood cells. She has been seen by surgery here who recommended transfer to tertiary care center. She has been accepted at [facility] to the care of Dr. Dorman, however she has been awaiting a bed for several days. I called the [facility] transfer center this morning who stated they still did not have a bed available. I spoke with Dr. Espino today, we are both in agreement that the patient should be transferred to [facility] she is awaiting transfer to [facility], as there are no surgical services on-site here at the [facility], and the patient runs the risk of significant bleeding. In addition the blood products must be transferred to this hospital from the main facility and thus there may be a delay in receiving a much needed transfusion in the event that she bleeds again. [facility] currently does not have any plastic surgery coverage, and the patient needs transfer to tertiary care center. Continue pressure dressing and do not remove as per Dr. Espino. -Seizure disorder with possible breakthrough seizure yesterday. The patient does have a reported history of inoperable brain tumor. I have ordered brain MRI. Phenobarbital level was subtherapeutic so I have increased that from 32.4 mg twice a day, 232.4 mg in the morning and 60 mg at night. Will order EEG and consult neurology. -Anemia of acute blood loss due to the hemangioma, status post total 3 units packed red blood cell transfusion. -Hypothyroidism, continue Synthroid. -Mild hyperkalemia. Will repeat BMP in the morning. -Generalized weakness. Avoid PT consultation at this time is the do not want to aggravate the bleeding. -DVT prophylaxis with SCDs to the left lower extremity. Arcelia Puga MD Mar 29, 2017 12:14
--- NOTE | 2017-03-29 12:32 | HHI.PR ---
Objective Vitals Vital Signs Date Time Temp Pulse Resp B/P Pulse Ox O2 Delivery O2 Flow Rate FiO2 03/29/17 10:58 Nasal Cannula 2.00 03/29/17 08:00 98.0 103 19 154/78 100 03/29/17 04:46 96.9 147/86 96 03/29/17 01:33 98.8 100 16 139/71 100 03/28/17 21:15 98.0 97 22 143/61 100 03/28/17 20:00 100 Nasal Cannula 2.00 03/28/17 19:00 98.2 103 16 142/60 98 03/28/17 18:45 102 141/65 03/28/17 18:30 99 146/67 98 03/28/17 18:15 145/54 03/28/17 18:00 97.2 101 16 128/64 98 03/28/17 17:45 97.4 100 16 133/62 99 03/28/17 17:33 97.3 100 15 133/62 99 03/28/17 16:00 97.4 96 18 114/59 98 03/28/17 15:30 97.6 13 114/62 100 03/28/17 13:30 97.5 92 16 119/63 93 03/28/17 13:00 97.4 97 16 121/65 96 03/28/17 12:45 97.6 94 16 115/60 93 I/O 03/28/17 03/28/17 03/28/17 03/29/17 03/29/17 03/29/17 06:59 14:59 22:59 06:59 14:59 22:59 Intake Total 300 ml 525 ml Balance 300 ml 525 ml Intake Oral 300 ml 525 ml # Voids 1 2 4 # Bowel Movements 0 0 1 Result Diagram: 03/28/17 1627 03/28/17 1627 Procedures None A/P Problem List: (1) 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
[2017-03-29] MEDS ORDERED: LORazepam 2 MG/ML VIAL IV ONE (16:30)
[2017-03-29] MEDS ORDERED: LORazepam 2 MG/ML VIAL IV PRN (16:30)
--- NOTE | 2017-03-29 19:06 | RADRPT ---
EXAM DATE/TIME: 03/29/2017 18:55 [facility] COMPARISON: CHEST SINGLE AP, February 04, 2017, 15:29. INDICATIONS : Coded. Line placement. MEDICAL HISTORY : Hypertension. Cardiovascular disease. Seizures SURGICAL HISTORY : Howard rods. ENCOUNTER: Initial ACUITY: 1 day PAIN SCORE: Non-responsive. LOCATION: Bilateral chest FINDINGS: ET tube is present with tip overlapping approximately 4-5 cm above the zonia. NG tube is present wit h tip in the stomach. There is moderate airspace process in both lungs not present previously probabl y pulmonary edema. Postsurgical changes of the spine are again noted. Heart and mediastinum are unrem arkable for technique. No definite pneumothorax is seen for technique. Central line is not visualized . CONCLUSION: Interval development of moderate airspace process most likely pulmonary edema. Saul Marie MD on March 29, 2017 at 19:04 Board Certified Radiologist. This report was verified electronically.
--- NOTE | 2017-03-29 19:14 | HHI.PR ---
Addendum to Inpatient Note Additional Information Code blue was called as patient had lost pulse and respirations. Please see code blue notes. The patient was intubated and underwent CPR. She did regain a disorganized rhythm with pulse for about 30 minutes now, however no blood pressure has been able to be obtained despite max doses of dopamine and levophed. After 45+ minutes of coding the patient, Dr. Weston and I spoke with the family (mother and ) about the extremely poor change. They requested that no further chest compressions be performed and that the patient be allowed to in comfort should she lose a pulse again. They would like her to remain intubated and on pressors for now. Arcelia Puga MD Mar 29, 2017 19:14
[2017-03-29] MEDS ORDERED: PANTOPRAZOLE SODIUM 40 MG VIAL IV PUSH ONE (20:00)
[2017-03-29] MEDS ORDERED: levETIRAcetam 1000 MG INJ 100 ML IV SCH (20:00)
--- NOTE | 2017-03-29 20:41 | PD.CONS ---
[facility] Service Critical Care Medicine Consult Requested By [facility] Reason for Consult Critical Care Primary Care Physician Ketan David, DO History of Present Illness 61 y/o woman well known to the [employer] and myself sustained a cardiac arrest earlier this evening and after over 45 minutes of ACLS protocol is in profound cardiogenic shock. She will not survive this illness and is barely sustaining a ECG tracing, without blood pressure recording. The family has elected to withdraw artificial support and I concur with their decision. Past Family Social History Allergies: Coded Allergies: coconut (Unverified Allergy, Severe, Anaphylaxis, 03/25/17) peas (Unverified Allergy, Severe, Anaphylaxis, 03/25/17) erythromycin base (Unverified Allergy, Unknown, 03/25/17) tetracycline (Unverified Allergy, Unknown, 03/25/17) *MDRO Multi-Drug Resistant Organism (Verified Adverse Reaction, Unknown, MRSA, 03/24/17) MRSA screen (nares) POSITIVE - 03/09/17 Physical Exam Vital Signs Vital Signs Date Time Temp Pulse Resp B/P Pulse Ox O2 Delivery O2 Flow Rate FiO2 03/29/17 19:10 94 100 03/29/17 16:00 98.1 91 17 146/79 98 03/29/17 12:00 98.2 95 17 140/72 99 03/29/17 10:58 Nasal Cannula 2.00 03/29/17 08:00 98.0 103 19 154/78 100 03/29/17 04:46 96.9 147/86 96 03/29/17 01:33 98.8 100 16 139/71 100 03/28/17 21:15 98.0 97 22 143/61 100 Result Diagram: 03/28/17 1627 03/28/17 1627 Zaid Cervantes MD Mar 29, 2017 20:41
[2017-03-29] MEDS ORDERED: PHENobarbital 32.4 MG TAB PO SCH (21:00)
--- NOTE | 2017-03-29 21:42 | HHI.DS ---
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 The patient has a large hemangioma on the right side and the wound that has been bleeding on and off for the past two weeks. She has required blood transfusion. According to her mother she has had about 5 episodes of active bleeding from the wound. She has had previous sutures in attempts to stop the bleeding. However bleeding always recur. The patient was sent from a halfway after she was noted to be actively bleeding from the wound again. CBC/BMP: 03/28/17 1627 03/28/17 1627 Significant Findings Laboratory Tests Test 03/27/17 03/27/17 03/28/17 03/28/17 08:10 20:37 05:27 08:00 Red Blood Count 2.75 MIL/MM3 2.43 MIL/MM3 (4.00-5.30) (4.00-5.30) Hemoglobin 8.5 GM/DL 8.3 GM/DL 7.4 GM/DL (11.6-15.3) (11.6-15.3) (11.6-15.3) Hematocrit 24.7 % 25.5 % 22.3 % (35.0-46.0) (35.0-46.0) (35.0-46.0) Mean Platelet Volume 6.4 FL 6.7 FL (7.0-11.0) (7.0-11.0) Neutrophils (%) (Auto) 82.9 % (16.0-70.0) Lymphocytes (%) (Auto) 6.7 % (9.0-44.0) Monocytes (%) (Auto) 8.7 % (0.0-8.0) Lymphocytes # (Auto) 0.5 TH/MM3 (1.0-4.8) White Blood Count 12.0 TH/MM3 (4.0-11.0) Prothrombin Time 11.8 SEC (9.8-11.6) Fibrinogen 168 mg/dL (227-377) Test 03/28/17 16:27 Red Blood Count 2.81 MIL/MM3 (4.00-5.30) Hemoglobin 8.6 GM/DL (11.6-15.3) Hematocrit 25.5 % (35.0-46.0) Mean Platelet Volume 6.7 FL (7.0-11.0) Neutrophils (%) (Auto) 73.5 % (16.0-70.0) Monocytes (%) (Auto) 13.3 % (0.0-8.0) Monocytes # (Auto) 1.4 TH/MM3 (0-0.9) Potassium Level 5.5 MEQ/L (3.5-5.1) Carbon Dioxide Level 36.4 MEQ/L (21.0-32.0) Anion Gap 1 MEQ/L (5-15) Creatinine 0.48 MG/DL (0.50-1.00) Random Glucose 126 MG/DL (74-106) Calcium Level 7.5 MG/DL (8.5-10.1) Total Protein 5.6 GM/DL (6.4-8.2) Albumin 2.2 GM/DL (3.4-5.0) Phenobarbital Level 7.0 MCG/ML (15.0-40.0) PE at Discharge Asystole. . 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 However she had to be transfused 2 units of packed red blood cells. She has been seen by surgery here who recommended transfer to tertiary care center. She has been accepted at [facility] to the care of Dr. Dorman, however she has been awaiting a bed for several days. I called the [facility] transfer center this morning who stated they still did not have a bed available. I spoke with Dr. Espino today, we are both in agreement that the patient should be transferred to [facility] she is awaiting transfer to [facility], as there are no surgical services on-site here at the [facility] [place], and the patient runs the risk of significant bleeding. In addition the blood products must be transferred to this hospital from the main facility and thus there may be a delay in receiving a much needed transfusion in the event that she bleeds again. [facility] currently does not have any plastic surgery coverage, and the patient needs transfer to tertiary care center. Continue pressure dressing and do not remove as per Dr. Espino. -Seizure disorder with possible breakthrough seizure yesterday. The patient does have a reported history of inoperable brain tumor. I have ordered brain MRI. Phenobarbital level was subtherapeutic so I have increased that from 32.4 mg twice a day, 232.4 mg in the morning and 60 mg at night. Will order EEG and consult neurology. -Anemia of acute blood loss due to the hemangioma, status post total 3 units packed red blood cell transfusion. -Hypothyroidism, continue Synthroid. -Mild hyperkalemia. Will repeat BMP in the morning. -Generalized weakness. Avoid PT consultation at this time is the do not want to aggravate the bleeding. -DVT prophylaxis with SCDs to the left lower extremity. Arcelia Puga MD Mar 29, 2017 12:14 Addendum: Arcelia Puga MD on 03/29/17 @ 13:[address] Eugene hospitalist at [facility] and asked if there was anything that could be done to expedite this patient's transfer to [facility]. Dr. Eugene stated she did not feel met emergent status but that she would speak with bed placement and see if transfer could be expedited. Patient sustained a cardiac arrest. Following 45 mins of full ACLS protocol the patient was transferred to the ICU. The patient is well known to me. Discussions followed between the primary team, Dr. Weston from Cardiology at the bedside, and myself. At this point the family chose to withdraw artificial support. While we attempted to get two physician signatures to approve withdrawal the patient arrested again, this time as DNR status per the family. Withdrawal was not necessary as the patient naturally at 9 hours. Pt Condition on Discharge: Deteriorating Discharge Instructions DIET: Follow Instructions for: Heart Healthy Diet Activities you can perform: Regular-No Restrictions Zaid Cervantes MD Mar 29, 2017 21:42 Zaid Cervantes MD Mar 29, 2017 21:42
[2017-03-29] MEDS ORDERED: PHENYTOIN INJ 100 MG/2 ML VIAL IV SCH (22:00)
[2017-03-30] MEDS ORDERED: PHENobarbital 32.4 MG TAB PO SCH (09:00)
--- NOTE | 2017-04-01 08:10 | MG ---
cc: VON [facility] Lab No: [id number] Date: 03/29/18 Age: Sex: F Race: Several episodes of unresponsiveness. History of seizures on Phenobarb and Dilantin. The recording shows diffuse 5 Hz slowing of a higher amplitude, appears to be some focal higher amplitude slowing over the bilateral occipital lobes, a little bit more seen on the right than the left. At times some sharply contoured waves are seen coming out of the slowing such as the transverse montage at EPOCH 47. At times seen phase reversal over the midline head region. No spike wave activity is noted. More particularly sharp wave is seen midline, phase reversing over the midline head region at EPOCH 67 on the transverse montage and appears to be a little bit more over the right central head region on the bipolar montage. Hyperventilation not performed. Photic stimulation is performed without any posterior driving. IMPRESSION Diffuse slowing consistent with a moderate diffuse encephalopathy. There are some sharp features but no prolonged seizure activity is noted. This could be consistent with a moderate diffuse encephalopathy with some epileptiform features. Bilateral occipital lobe abnormality could be considered. Clinical correlation is needed. MD JULIA Paulino/GEMINI /9:45 PM /8:07 AM
== END 2017-03-29 20:49 | disposition expired | DRG 812 ==
LOC: PHED 03:46 → PHEDA 06:03 → PH3B 06:44 → OBSVTOIN 14:28 → PHICU 03-29 19:06
PROVIDERS: ADMIT Family Medicine; ATTEND Family Medicine
PROC: 30233N1 Transfusion of Nonautologous Red Blood Cells into Peripheral Vein, Percutaneous Approach (ICD-10-PCS; principal; 2017-03-24)
PROC: 5A1935Z Respiratory Ventilation, Less than 24 Consecutive Hours (ICD-10-PCS; 2017-03-29)
PROC: 5A12012 Performance of Cardiac Output, Single, Manual (ICD-10-PCS; 2017-03-29)
PROC: 0BH17EZ Insertion of Endotracheal Airway into Trachea, Via Natural or Artificial Opening (ICD-10-PCS; 2017-03-29)
DX: D62 Acute posthemorrhagic anemia (principal); R57.0 Cardiogenic shock; D49.6 Neoplasm of unspecified behavior of brain; Q87.2 Congenital malformation syndromes predominantly involving limbs; M41.9 Scoliosis, unspecified; E87.5 Hyperkalemia; G62.9 Polyneuropathy, unspecified; I10 Essential (primary) hypertension; K59.09 Other constipation; G40.909 Epilepsy, unspecified, not intractable, without status epilepticus; E03.9 Hypothyroidism, unspecified; M19.90 Unspecified osteoarthritis, unspecified site; D18.01 Hemangioma of skin and subcutaneous tissue; Z66 Do not resuscitate
CPT/HCPCS: 36430; 70450; 71010; 80048; 80053; 80184; 80185; 81001; 83605; 85014; 85018; 85025; 85027; 85384; 85610; 85730; 86850; 86900; 86901; 86920; 87086; 92950; 94002; 95819; 96360; 99285; J2060; J7040; J7050; P9016; P9612